=== PATIENT | female | born 1940 | race African-American/Black ===

== ENCOUNTER 2017-01-18 18:44 | Inpatient (IN) ==
[2017-01-18 21:42] LABS: Basophils % 0.3 % (0.0-0.8); Eosinophils % 0.3 % (0.00-10.9); Hematocrit 38.5 VOL% (35.7-47.0); Immature Granulocytes % 0.4 %; Immature Granulocytes Absolute 0.05 #; Lymphocytes # 1.6 10*3/uL (1.4-4.0); Lymphocytes % 13.4 % (21.3-54.2); Mean Corpuscular HGB Conc 31.2 GM/DL (32-36); Mean Corpuscular Hemoglobin 27 PG (27-34); Mean Corpuscular Volume 87.3 FL (87-102); Mean Platelet Volume 10.2 FL (9.6-12.0); Monocytes # 0.8 10*3/uL (0.11-0.8); Monocytes % 6.5 % (1.7-12.7); NRBC # 0.04 10*3/uL; Neutrophils # 9.5 10*3/uL (1.4-7.4); Neutrophils % 79.1 % (38.7-73.9); Platelet Count 390 T/CUMM (130-400); Red Blood Count 4.41 MC/CUMM (3.8-5.5); Red Cell Distribution Width 15.9 % (9.3-17.3)
[2017-01-18 21:54] LABS: Alanine Aminotransferase 15 U/L (13-56); Albumin 2.5 G/DL (3.4-5.0); Alkaline Phosphatase 137 U/L (45-117); Aspartate Amino Transferase 22 U/L (0-37); Bilirubin,Total < 0.39 MG/DL (0.2-1.0); Blood Urea Nitrogen 7 MG/DL (7-18); Calcium 8.1 MG/DL (8.5-10.1); Glucose 50 MG/DL (74-106); Osmolality,Calculated 269.7 MOS/KG (273-304); Potassium 5.2 MMOL/L (3.5-5.1); Sodium 138 MMOL/L (136-145); Total Protein 6.6 G/DL (6.4-8.3)
[2017-01-18 22:07] LABS: Apearance,Urine Slightly Hazy (Clear); Bilirubin,Urine Negative (Negative); Blood, Urine Negative (Negative); Glucose,Urine (UA) Negative (Negative); Granular Casts,Urine 3 /LPF (0-1); Hyaline Casts,Urine 38 /LPF (0-3); Ketones,Urine 5 mg/dL (Negative); Mucus,Urine Occasional /LPF (Occasional); Nitrite,Urine Negative (Negative); Protein,Urine 100 MG/DL; Squamous Epithelial Cell,Urine Occasional /HPF (0-10); Urine Color Yellow (Yellow); Urine Specific Gravity 1.021 (1.001-1.035); Urine Urobilinogen < 2.0 EU/DL (0.2-1.0); WBC,Urine 1 /HPF (0-6)
--- NOTE | 2017-01-18 22:08 | Emergency Department Note ---
Arrival - Arrival Chief Complaint: Weakness Stated Complaint: stroke ED Nursing Triage Note: C/O Right sided weakness/trouble speaking earlier today. Onset unknown. Daughter reports that she saw her last normal lastnight, but noticed the changes today around noon. Pt had a stroke 3 years ago that left her wheelchair bound with left sided weakness. Mode of Arrival: Wheelchair Time Seen by Provider: 01/18/17 21:15 - History of Present Illness HPI Narrative: This is a 76-year-old female of descent with a history of craniotomy for cerebral aneurysm surgery, type 2 diabetes, hypertension, COPD, depression and previous stroke in 2016 leaving her with weakness of her left arm and left leg who presents with slurred speech weakness of the right arm and right leg and an inability to stand on the previously normal right leg of unknown duration. Last time the family saw the patient did well was last evening. Since she is arrived in the emergency department her speech is returned to its baseline and the strength of her right upper extremity has returned to nearly normal. However the weakness of the right leg remains profound. She denies any headache. She has been complaining of a cough for the past few weeks and her family physician gave her diagnosis of bronchitis. Date of Last Menstrual Period: hysterectomy Allergies/Adverse Reactions: Allergies Allergy/AdvReac Type Severity Reaction Status Date / Time codeine Allergy Severe RASH Verified 11/04/15 17:14 morphine Allergy Severe SHORTNESS Verified 11/04/15 17:14 OF BREATH Penicillins Allergy Severe RASH Verified 11/04/15 17:14 metronidazole [From Flagyl] AdvReac Unknown ITCHING Verified 11/04/15 17:14 Home Medications: Home Medications Medication Instructions Recorded Confirmed Type Docusate Sodium Cap [Colace Cap] 100 mg PO BID 11/04/15 05/22/16 History Glyburide/Metformin HCl 2 each PO BID W/MEALS 11/04/15 05/22/16 History [Glyburide-Metformin 5-500 mg] Oxybutynin Chloride [Oxybutynin 5 mg PO DAILY 11/04/15 05/22/16 History Chloride ER] OLANZapine [Olanzapine] 5 mg PO BEDTIME #30 tablet 11/18/15 05/22/16 Rx Venlafaxine HCl [Venlafaxine HCl 150 mg PO BID #60 tab.er.24 11/18/15 05/22/16 Rx ER] Amlodipine Besylate/Benazepril 1 each PO DAILY 05/22/16 05/22/16 History [Lotrel 10-20 mg Capsule] Clorazepate [Tranxene] 3.75 mg PO TID PRN 05/22/16 05/22/16 History HYDROcodone/ACETAMIN 10-325 [[place] 1 tablet PO Q4H PRN 05/22/16 05/22/16 History 10-325] Review of System - Review of System Constitutional: Absent: fever, night sweats Eyes: Absent: redness, vision change Head/Ears/Nose/Throat: Absent: earache, epistaxis Respiratory: Present: cough. Absent: respiratory distress, wheezing Cardiovascular: Absent: dyspnea on exertion, orthopnea Gastrointestinal: Absent: abdominal pain, nausea, diarrhea Genitourinary female: Absent: dysuria, urgency Musculoskeletal: Absent: joint swelling, lower back pain Skin: Absent: rash, pruritus Neurological: Present: abnormal gait. Absent: headache, numbness, confusion Psychiatric: Present: depression. Absent: anxiety Endocrine: Absent: heat intolerance, polydipsia, polyuria Hematological/Lymphatic: Absent: easy bruising, lymphadenopathy Allergic/Immunologic: Absent: urticaria, itchy eyes Medical,Surgical,& Family Hx - Medical History Cardio: History of: Hypertension No history of: Aneurysm, Cardiac Dysrhythmia, Cerebrovascular Disease, Congenital Heart Disease, CHF, CAD, [place], Pacemaker, PVD, Valvular Heart Disease, Cardiovascular Problems Psychological: History of: Anxiety Disorders, Behavior Problems, Depression No history of: ADHD, Bipolar Disorder, Previous Suicide Attempt, Psychiatric/ Substance Abuse Tx, Schizophrenia, Violent Behavior, Psychiatric Problems Neurology: History of: Brain Aneurysm (2009), Cerebrovascular Accident (2014), Peripheral Neuropathy No history of: Cerebral Hemorrhage, Cerebral Palsy, Dementia, Migraine, Multiple Sclerosis, Parkinson's Disease, Seizures, TIA, Vertigo, Neurologocal Cancer HEENT: History of: Dental Problems, Glaucoma No history of: Ear Problem, Eye Problem, Oral Cancer Endocrine: History of: Diabetes Mellitus (IDDM), Diabetes Mellitus (NIDDM) No history of: Adrenal Disease, Dyslipidemia, Thyroid Disorder, Endocrine Cancer, Endocrine Problems Rheumatology: History of;: Rheumatoid Arthritis No history of;: Fibromyalgia, Gout, Myasthenia Gravis, Psoriasis, Sjogrens, Systemic Lupus Erythematosus, Rheumatological Problems Respiratory: No history of: Asthma, Bronchitis, COPD, Intubation, Obstructive Sleep Apnea , Pulmonary Embolism, Pulmonary Hypertension, Pneumonia, Lung Cancer, Respiratory Problems Renal: No history of: Renal (Kidney) Cancer, Dialysis, Renal Failure, Renal Problems Genitourinary: No history of: Bladder Problem, Kidney Stones, Recurring Urinary Tract Infections, Genitourinary Cancer, Problems Gastrointestinal: History of: GERD, Hemorrhoids No history of: Bowel Obstruction, Clostridium Difficile, Crohn's Disease, Diverticulitis/ Diverticulosis, Esophageal Varices, Gastrointestinal Bleed, Hematochezia, Hepatitis, Liver Problems, Pancreatitis, Polyps, Ulcerative Colitis Musculoskeletal: No history of: Amputation, Back/Neck Problems, Degenerative Disk Disease, Herniated Disk, Osteoporosis, Musculoskeletal Cancer, Musculoskeletal Problems Hematology: No history of: Anemia, Blood Transfusion Reaction, Bleeding Problems, Clotting Problems, Sickle Cell Disease, Hematologic Cancer, Blood Disorders Reproductive: No history of: Abnormal Pap Smear, Breast Cancer, Endometriosis, Ectopic , Ovarian Cysts, Sexually Transmitted Disorders Other: No history of: Anesthesia Reactions, Anaphylaxis, Cancer, Eczema, HIV, Malignant Hyperthermia, MRSA, Vancomycin-Resistant Enterococci, Skin Problems, Miscellaneous Medical Problems - Surgical History Cardiac Surgeries: Patient Denies: Femoral-Popliteal Bypass Graft, Cardiac Catheterization, Cardiac Surgery, Carotid Endarterectomy, Internal Defibrillator, Vascular Access Devices Thoracic Surgeries: Patient denies;: Kidney (Renal Surgery), Lithotripsy, Nephrectomy, Organ Transplant, Lobectomy Neurologic Surgeries: Surgical HX of: Brain Aneurysm (2008) Patient denies: Cerebral Hemorrhage, Neurologic Surgery HEENT Surgeries: Patient denies: Carotid Endarterectomy, Eye Surgery, Thyroid Surgery, Tonsilectomy & Adenoidectomy Abdominal Surgeries: Patient denies: Abdominal Surgery, Appendectomy, Cholecystectomy, Colonoscopy , Gastric Bypass Surgery, EGD, Splenectomy Reproductive Surgeries: Surgical HX of;: Hysterectomy (Partial) Patient denies;: Section, Cystoscopy, Genitourinary Surgery Orthopedic Surgeries: Patient denies;: Implanted Devices, Orthopedic Surgery, Spinal Surgery, Total Hip Replacement, Total Knee Replacement - Family History Family History: Denies;: Family Anesthesia Reaction, Family Cancer, Family Diabetes, Family Heart Disease, Family Hypertension, Family Psychiatric Problems, Family Stroke - Social History Smoking Status: Current every day smoker Frequency of Alcohol Use: None Type of Drug Use: None Exam Vital Signs: Vital Signs Temperature 98.6 F 01/18/17 22:10 Pulse Rate 109 H 01/18/17 22:10 Respiratory Rate 18 01/18/17 22:12 Blood Pressure 142/61 01/18/17 22:10 O2 Sat by Pulse Oximetry 98 01/18/17 19:38 - General General appearance: alert - Eye Eye exam: Present: PERRL, EOMI - ENT ENT exam: Present: normal exam, normal oropharynx - Neck Neck exam: Present: normal inspection, full ROM - Respiratory Respiratory exam: Present: rhonchi - Cardiovascular Cardiovascular exam: Present: regular rate, normal rhythm - Abdominal Exam Abdominal exam: Present: soft, normal bowel sounds - Extremities Exam Extremities exam: Present: normal inspection, full ROM - Back Exam Back exam: Present: normal inspection, full ROM - Neurological Exam Neurological exam: Present: alert, oriented X3, CN II-XII intact - Psychiatric Psychiatric exam: Present: normal affect, normal mood - Skin Skin exam: Present: warm, dry Course Course Narrative: According to the family the patient's slurred speech right arm and right leg weakness were present when she was at home and her blood sugar was 300. In the emergency department her blood sugar was 50 and her speech and right arm weakness had already resolved. Her right leg weakness has resolved before she was given intravenous dextrose. It appears that her diagnosis is compatible with a TIA. The case was discussed with who agreed to admit the patient for Dr. Fitzpatrick. Results - Labs CBC & BMP: 01/18/17 21:09 01/18/17 21:09 Disposition Clinical Impression: TIA (transient ischemic attack) Additional Instructions: Patient signs and symptoms are compatible with transient ischemic attack. The case was discussed with Dr. Yoo who agreed to admit the patient on behalf of Dr. Fitzpatrick her attending.
[2017-01-18] MEDS ORDERED: DEXTROSE 50% 25 GM/50 ML VIAL IV STA (22:47)
[2017-01-18] MEDS ORDERED: DEXTROSE 50% 25 GM/50 ML SYRINGE IV ONE (23:09)
[2017-01-19] MEDS ORDERED: ACETAMINOPHEN 325 MG TABLET PO PRN (00:07)
[2017-01-19] MEDS ORDERED: ONDANSETRON 4 MG/2 ML VIAL IV PRN (00:07)
[2017-01-19] MEDS ORDERED: ZINC OXIDE PASTE 113 GM TUBE TOP PRN (02:12)
--- NOTE | 2017-01-19 06:34 | CT Report ---
Exam: CT head without intravenous contrast Clinical History: 76 years Female weakness, right-sided deficit Technique: Axial computed tomography images of the head/brain without intravenous contrast Comparison: May 08, 2016 at 2128 hours Findings: Brain: Atrophy with microangiopathic small vessel ischemic changes and remote infarct involving the right internal capsule. Smart-white matter distinction maintained. No mass effect. No intra or extra-axial hemorrhage. Ventricles: Unremarkable. No ventriculomegaly. Bones/joints: Prior right craniotomy Soft tissues: Unremarkable Vasculature: Right-sided aneurysm clip with streak artifact Sinuses: Ethmoid sinus inflammatory changes with fluid within the right mastoid sinus . Impression: 1. No acute intracranial abnormality 2. Other findings as discussed above PROCEDURE INTERPRETED AT [facility] DEPARTMENT OF RADIOLOGY Final Report Signed by: Corey Smart
--- NOTE | 2017-01-19 07:19 | CT Report ---
Exam: CT chest with intravenous contrast Exam date: 01/18/2017 9:31 PM Clinical History: 76 years,Female, abdominal pain, cough, right leg weakness Technique: Axial computed tomography images of the chest with intravenous contrast. The CT exam was performed using one or more of the following dose reduction techniques: Automated exposure control, adjustment of the mA and/or kV according to patient size, or use of iterative reconstruction technique. Contrast: 100 mL of Omnipaque 350 administered intravenously. Comparison: No relevant comparisons Findings: Lungs: No mass. No consolidation. Pleural spaces: No pneumothorax. No significant effusion Heart: No cardiomegaly. No pericardial effusion Mediastinum: Intact. Normal trachea Bones/joints: Thoracic kyphosis with multilevel spondylosis. Soft tissues: Unremarkable Vasculature: Atheromatous changes Lymph nodes: No pathologic adenopathy Impression: 1. No acute findings 2. Atheromatous changes Exam: CT abdomen and pelvis with intravenous contrast Exam date: 01/18/2017 9:31 PM Clinical History: 76-year-old female, with generalized abdominal pain and right leg weakness, Technique: Axial computed tomography images of the abdomen and pelvis with intravenous contrast. All CT scans at this facility use one or more dose reduction techniques. Automated exposure control, MA/KV adjustment per patient size (including targeted exam Square dose is matched to indication) or iterative reconstruction technique Contrast: 100 mL of Omnipaque 350 administered intravenously Comparison: October 09, 2010 at 1005 hours Findings: Lower thorax: See dedicated chest report Abdomen: Liver: Slight increased hypodensity throughout the liver parenchyma. Scattered subcentimeter densities throughout the right hepatic lobe, benign cyst versus hemangiomas. Gallbladder and bile ducts: Contracted. No ductal dilatation. No stones. Pancreas: Pancreas is normal. Spleen: Spleen is normal. Adrenals: No adrenal mass. Kidneys and ureters: Kidneys are normal in size, morphology and enhancement. No hydronephrosis. No ureteral calculus. Stomach and bowel: Colonic diverticulosis without diverticulitis. No large or small bowel distention. Appendix: Unremarkable. No primary or secondary signs to suggest appendicitis. Pelvis: Bladder: Nascimento catheter decompresses urinary bladder Reproductive: Unremarkable as visualized. Abdomen and pelvis: Intraperitoneal space: No pneumoperitoneum. No significant intraperitoneal fluid Bones/joints: No acute osseous abnormality Soft tissues: No mass Vasculature: No aortic aneurysm. Atheromatous changes Lymph nodes: No adenopathy Impression: 1. Hepatic steatosis 2. Diverticulosis coli PROCEDURE INTERPRETED AT [facility] DEPARTMENT OF RADIOLOGY Final Report Signed by: Corey Smart
[2017-01-19] MEDS ORDERED: DEXTROSE 50% 25 GM/50 ML SYRINGE IV PRN (07:41)
[2017-01-19] MEDS ORDERED: GLUCAGON 1 MG VIAL IM PRN (07:41)
[2017-01-19 08:06] LABS: Basophils % 0.4 % (0.0-0.8); Eosinophils # 0.1 10*3/uL (0.0-0.87); Eosinophils % 0.8 % (0.00-10.9); Hematocrit 37.8 VOL% (35.7-47.0); Hemoglobin 11.9 GM/DL (12.0-16.0); Immature Granulocytes % 0.4 %; Immature Granulocytes Absolute 0.04 #; Lymphocytes # 1.3 10*3/uL (1.4-4.0); Lymphocytes % 14.3 % (21.3-54.2); Mean Corpuscular HGB Conc 31.5 GM/DL (32-36); Mean Corpuscular Hemoglobin 27 PG (27-34); Mean Corpuscular Volume 86.7 FL (87-102); Mean Platelet Volume 9.4 FL (9.6-12.0); Monocytes # 0.6 10*3/uL (0.11-0.8); Monocytes % 6.9 % (1.7-12.7); NRBC # 0.02 10*3/uL; Neutrophils # 6.9 10*3/uL (1.4-7.4); Neutrophils % 77.2 % (38.7-73.9); Platelet Count 461 T/CUMM (130-400); Red Blood Count 4.36 MC/CUMM (3.8-5.5); Red Cell Distribution Width 15.8 % (9.3-17.3); White Blood Count 8.9 T/CUMM (4-12)
[2017-01-19 08:36] LABS: Calcium 8.3 MG/DL (8.5-10.1); Osmolality,Calculated 279.4 MOS/KG (273-304); Potassium 4.2 MMOL/L (3.5-5.1)
--- NOTE | 2017-01-19 08:47 | Family Practice History&Phys ---
Assessment and Plan (1) TIA (transient ischemic attack) Status: Acute Assessment and plan: Vs New CVA, CT head Negative, follow neurology recommendations, Held ASA , h/o black stool, will get PT/OT/swallow eval, 2. HTN stable, not on BP meds currently, since BP not that high, 3. Has h/o black stool H/H stable currently,will get FOBT , follow GI recommendations, , 4. COPD , start duoneb's treatment continue O2 , CT chest was negative, 5. DM, stable, will do only SS insulin , A1c in AM 6.Hyperlipedemia, continue lipitor, 7.depression will continue effexor, Current cigarrete smoker, add Nicotine patch Current Visit: Yes (2) Hypertension Status: Chronic Current Visit: Yes (3) COPD (chronic obstructive pulmonary disease) Status: Chronic Current Visit: Yes (4) Nicotine dependence, cigarettes, uncomplicated Status: Chronic Current Visit: Yes (5) Depression Status: Chronic Current Visit: Yes (6) History of CVA (cerebrovascular accident) Status: Chronic Current Visit: Yes (7) Hyperlipidemia Status: Chronic Current Visit: Yes (8) Type 2 diabetes mellitus Status: Chronic Current Visit: Yes History of Present Illness Chief complaint: weakness of rt side, slurry speech since 2 days History of present illness: Ms. Leos is a 76 year old female PCP :,last visit 2 weeks ago, history obtained from her daughter, ms.dorris leos,present at the bedside. Has h/o HTN/DM/Hyperlipidemia, COPD, depression, h/o Left sided weakness secondary to CVA 2+ yrs ago, pt was brought by the family to Er, for weakness at rt side, slurry speech, could not get up from bed from rt side, noticed yesterday at home, In Er her rt UE, and speech got better,no difficult swallowing?, has h/o chronic headaches, blood glu 315 at home yesterday, but in Er was 50, received D50, pt has not been eating well, appetite decreased since few months, has bloated stomach, black colored stool, last BM 4 days ago,last c-scope > 5 yr ago , but not sure, recently lost her 2 weeks ago, had CVA, in 2014,left sided, is in wheel chair since then, last PT 2 months ago, h/o cerebral aneurysm s/p craniotomy 15 yrs ago, Smokes 1/2 PPD. Home Medications Medication Instructions Recorded Confirmed Type Docusate Sodium Cap [Colace Cap] 100 mg PO BID 11/04/15 01/19/17 History Glyburide/Metformin HCl 2 each PO BID W/MEALS 11/04/15 01/19/17 History [Glyburide-Metformin 5-500 mg] OLANZapine [Olanzapine] 5 mg PO BEDTIME #30 tablet 11/18/15 01/19/17 Rx Venlafaxine HCl [Venlafaxine HCl 150 mg PO BID #60 tab.er.24 11/18/15 01/19/17 Rx ER] Amlodipine Besylate/Benazepril 1 each PO DAILY 05/22/16 01/19/17 History [Lotrel 10-20 mg Capsule] Clorazepate [Tranxene] 3.75 mg PO TID PRN 05/22/16 01/19/17 History HYDROcodone/ACETAMIN 10-325 [[place] 1 tablet PO Q4H PRN 05/22/16 01/19/17 History 10-325] Benzonatate 200 mg PO BID 01/19/17 01/19/17 History clonazePAM [Clonazepam] 1 mg PO BEDTIME 01/19/17 01/19/17 History Allergies Allergy/AdvReac Type Severity Reaction Status Date / Time codeine Allergy Severe RASH Verified 11/04/15 17:14 morphine Allergy Severe SHORTNESS Verified 11/04/15 17:14 OF BREATH Penicillins Allergy Severe RASH Verified 11/04/15 17:14 metronidazole [From Flagyl] AdvReac Unknown ITCHING Verified 11/04/15 17:14 - Constitutional Constitutional: Present: as per HPI - EENT Eyes: Present: as per HPI Nose, mouth and throat: Present: as per HPI - Cardiovascular Cardiovascular: Present: as per HPI - Respiratory Respiratory: Present: as per HPI - Gastrointestinal Gastrointestinal: Present: as per HPI - Genitourinary Genitourinary: Present: as per HPI - Musculoskeletal Musculoskeletal: Present: as per HPI - Neurological Neurological: Present: as per HPI - Psychiatric Psychiatric: Present: as per HPI - Endocrine Endocrine: Present: as per HPI - Hematologic/Lymphatic Hematologic/Lymphatic: Present: as per HPI Medical,Surgical,& Family Hx - Medical History Cardio: History of: Hypertension No history of: Aneurysm, Cardiac Dysrhythmia, Cerebrovascular Disease, Congenital Heart Disease, CHF, CAD, [place], Pacemaker, PVD, Valvular Heart Disease, Cardiovascular Problems Psychological: History of: Anxiety Disorders, Behavior Problems, Depression No history of: ADHD, Bipolar Disorder, Previous Suicide Attempt, Psychiatric/ Substance Abuse Tx, Schizophrenia, Violent Behavior, Psychiatric Problems Neurology: History of: Brain Aneurysm (2009), Cerebrovascular Accident (2015), Peripheral Neuropathy, TIA No history of: Cerebral Hemorrhage, Cerebral Palsy, Dementia, Migraine, Multiple Sclerosis, Parkinson's Disease, Seizures, Vertigo, Neurologocal Cancer HEENT: History of: Dental Problems, Glaucoma No history of: Ear Problem, Eye Problem, Oral Cancer Endocrine: History of: Diabetes Mellitus (IDDM), Diabetes Mellitus (NIDDM) No history of: Adrenal Disease, Dyslipidemia, Thyroid Disorder, Endocrine Cancer, Endocrine Problems Rheumatology: History of;: Rheumatoid Arthritis No history of;: Fibromyalgia, Gout, Myasthenia Gravis, Psoriasis, Sjogrens, Systemic Lupus Erythematosus, Rheumatological Problems Respiratory: History of: COPD, Respiratory Problems (possible VAL[place]IA) No history of: Asthma, Bronchitis, Intubation, Obstructive Sleep Apnea, Pulmonary Embolism, Pulmonary Hypertension, Pneumonia, Lung Cancer Renal: No history of: Renal (Kidney) Cancer, Dialysis, Renal Failure, Renal Problems Genitourinary: No history of: Bladder Problem, Kidney Stones, Recurring Urinary Tract Infections, Genitourinary Cancer, Problems Gastrointestinal: History of: GERD, Hemorrhoids No history of: Bowel Obstruction, Clostridium Difficile, Crohn's Disease, Diverticulitis/ Diverticulosis, Esophageal Varices, Gastrointestinal Bleed, Hematochezia, Hepatitis, Liver Problems, Pancreatitis, Polyps, Ulcerative Colitis Musculoskeletal: No history of: Amputation, Back/Neck Problems, Degenerative Disk Disease, Herniated Disk, Osteoporosis, Musculoskeletal Cancer, Musculoskeletal Problems Hematology: No history of: Anemia, Blood Transfusion Reaction, Bleeding Problems, Clotting Problems, Sickle Cell Disease, Hematologic Cancer, Blood Disorders Reproductive: No history of: Abnormal Pap Smear, Breast Cancer, Endometriosis, Ectopic , Ovarian Cysts, Sexually Transmitted Disorders Other: No history of: Anesthesia Reactions, Anaphylaxis, Cancer, Eczema, HIV, Malignant Hyperthermia, MRSA, Vancomycin-Resistant Enterococci, Skin Problems, Miscellaneous Medical Problems - Surgical History Cardiac Surgeries: Patient Denies: Femoral-Popliteal Bypass Graft, Cardiac Catheterization, Cardiac Surgery, Carotid Endarterectomy, Internal Defibrillator, Vascular Access Devices Thoracic Surgeries: Patient denies;: Kidney (Renal Surgery), Lithotripsy, Nephrectomy, Organ Transplant, Lobectomy Neurologic Surgeries: Surgical HX of: Brain Aneurysm (2009) Patient denies: Cerebral Hemorrhage, Neurologic Surgery HEENT Surgeries: Patient denies: Carotid Endarterectomy, Eye Surgery, Thyroid Surgery, Tonsilectomy & Adenoidectomy Abdominal Surgeries: Patient denies: Abdominal Surgery, Appendectomy, Cholecystectomy, Colonoscopy , Gastric Bypass Surgery, EGD, Splenectomy Reproductive Surgeries: Surgical HX of;: Hysterectomy (Partial) Patient denies;: Section, Cystoscopy, Genitourinary Surgery Orthopedic Surgeries: Patient denies;: Implanted Devices, Orthopedic Surgery, Spinal Surgery, Total Hip Replacement, Total Knee Replacement - Family History Family History: Denies;: Family Anesthesia Reaction, Family Cancer, Family Diabetes, Family Heart Disease, Family Hypertension, Family Psychiatric Problems, Family Stroke - Social History Smoking Status: Current every day smoker Frequency of Alcohol Use: None Type of Drug Use: None Exam - Constitutional Vitals: Period Temp Pulse Resp BP Sys/Clemente Pulse Ox Last 24 Hr 98.6 F-99.5 F 91-109 16-20 132-171/61-80 96-100 Exam: General Examination: Examined pt after waking her up, GENERAL APPEARANCE: alert and oriented X 2, lying in bed, obese female pt , has nasal canula 2lit, is coughing HEENT: normal. EYES: extraocular movement intact (EOMI), conjunctiva clear, normal. NECK/THYROID: neck supple, full range of motion, no cervical lymphadenopathy, no thyromegaly. HEART: regular rate and rhythm, no murmurs, rubs, gallops. LUNGS: mild wheezes Bl with ronchi. ABDOMEN: soft, nontender, mildly distended, no organomegaly , bowel sounds present. NEUROLOGIC: alert and oriented X 2, mildly slurred speech, ? angle of mouth deviated to left, Strength 5/5 Rt UE, 4-/5 Rt LE, 0-1/5 Left UE/LE Results - Labs CBC & BMP: 01/19/17 07:47 01/19/17 07:47 Quality Measures - VTE Contraindication to Pharmacological VTE Prophylaxis: High Risk of Bleeding - Stroke Onset of Symptoms Date: 01/19/17 Onset of Symptoms Time: 12:00 Presenting Symptoms: Right hemiparesis
[2017-01-19] MEDS: NICOTINE 21 MG/24 HR PATCH TRANSDERM SCH (10:08)
[2017-01-19] MEDS: DOCUSATE SODIUM 100 MG CAPSULE PO SCH ×2 (10:09→20:58)
[2017-01-19] MEDS: PANTOPRAZOLE 40 MG TABLET PO SCH (10:09)
--- NOTE | 2017-01-19 10:49 | Gastrointestinal Consult Note ---
Assessment and Plan (1) Melena Status: Acute Assessment and plan: 01/19-reports of melena over the last several weeks with constipation. Reports of daily BC powders as well as epigastric discomfort and worsening GERD. Prior history of endoscopy in the past. Obtain and otoscopic records from endoscopic clinic if available. Note that colonoscopy was recently scheduled but canceled. Tentative EGD tomorrow to further evaluate findings. Further plan an addendum to followed by Dr. Carey. Current Visit: Yes History of Present Illness Chief complaint: Melena History of present illness: Ms. Wilks is a 76 year old female who was admitted to the hospital on yesterday with complaints of weakness in her arms and legs and slurred speech. Patient's daughters at bedside and assists in history taking. 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 On yesterday, she developed weakness on her right arm and leg as well as some slurred speech. Her daughter became concerned and brought her to the emergency room for further evaluation. They also report that over the last several days they noticed that her stools have been darker in color than usual. Patient also has some complaints of increased GERD as well as some mild dysphagia to solids. She does state that at times when she eats she has some epigastric discomfort. Her spouse 2 weeks ago from colon cancer and her daughter states that she has not eaten very well over the last several months. Patient feels like she has had some weight loss but she is uncertain as to how much. Patient was also scheduled for colonoscopy in the last couple of weeks however this had to be canceled due to her spouse's . Patient has had some increased difficulty with constipation over the last several months that patient's daughter feels was also associated with her decreased eating habits. She has had endoscopy done in the past but does not recall any abnormal findings. Her prior endoscopy was done by Dr. Reinoso and [facility]. On admission, patient had a CT of the abdomen with findings of hepatic steatosis and diverticulosis. H&H is noted . Patient does report taking approximately 3 BCs a day for a period of time. She is not on long-term anticoagulation. Home Medications Medication Instructions Recorded Confirmed Type Docusate Sodium Cap [Colace Cap] 100 mg PO BID 11/04/15 01/19/17 History Glyburide/Metformin HCl 2 each PO BID W/MEALS 11/04/15 01/19/17 History [Glyburide-Metformin 5-500 mg] OLANZapine [Olanzapine] 5 mg PO BEDTIME #30 tablet 11/18/15 01/19/17 Rx Venlafaxine HCl [Venlafaxine HCl 150 mg PO BID #60 tab.er.24 11/18/15 01/19/17 Rx ER] Amlodipine Besylate/Benazepril 1 each PO DAILY 05/22/16 01/19/17 History [Lotrel 10-20 mg Capsule] Clorazepate [Tranxene] 3.75 mg PO TID PRN 05/22/16 01/19/17 History HYDROcodone/ACETAMIN 10-325 [[place] 1 tablet PO Q4H PRN 05/22/16 01/19/17 History 10-325] Benzonatate 200 mg PO BID 01/19/17 01/19/17 History clonazePAM [Clonazepam] 1 mg PO BEDTIME 01/19/17 01/19/17 History Allergies Allergy/AdvReac Type Severity Reaction Status Date / Time codeine Allergy Severe RASH Verified 11/04/15 17:14 morphine Allergy Severe SHORTNESS Verified 11/04/15 17:14 OF BREATH Penicillins Allergy Severe RASH Verified 11/04/15 17:14 metronidazole [From Flagyl] AdvReac Unknown ITCHING Verified 11/04/15 17:14 Medical,Surgical,& Family Hx - Medical History Cardio: History of: Hypertension No history of: Aneurysm, Cardiac Dysrhythmia, Cerebrovascular Disease, Congenital Heart Disease, CHF, CAD, [place], Pacemaker, PVD, Valvular Heart Disease, Cardiovascular Problems Psychological: History of: Anxiety Disorders, Behavior Problems, Depression No history of: ADHD, Bipolar Disorder, Previous Suicide Attempt, Psychiatric/ Substance Abuse Tx, Schizophrenia, Violent Behavior, Psychiatric Problems Neurology: History of: Brain Aneurysm (2008), Cerebrovascular Accident (2014), Peripheral Neuropathy, TIA No history of: Cerebral Hemorrhage, Cerebral Palsy, Dementia, Migraine, Multiple Sclerosis, Parkinson's Disease, Seizures, Vertigo, Neurologocal Cancer HEENT: History of: Dental Problems, Glaucoma No history of: Ear Problem, Eye Problem, Oral Cancer Endocrine: History of: Diabetes Mellitus (IDDM), Diabetes Mellitus (NIDDM) No history of: Adrenal Disease, Dyslipidemia, Thyroid Disorder, Endocrine Cancer, Endocrine Problems Rheumatology: History of;: Rheumatoid Arthritis No history of;: Fibromyalgia, Gout, Myasthenia Gravis, Psoriasis, Sjogrens, Systemic Lupus Erythematosus, Rheumatological Problems Respiratory: History of: COPD, Respiratory Problems (possible VALENCIA) No history of: Asthma, Bronchitis, Intubation, Obstructive Sleep Apnea, Pulmonary Embolism, Pulmonary Hypertension, Pneumonia, Lung Cancer Renal: No history of: Renal (Kidney) Cancer, Dialysis, Renal Failure, Renal Problems Genitourinary: No history of: Bladder Problem, Kidney Stones, Recurring Urinary Tract Infections, Genitourinary Cancer, Problems Gastrointestinal: History of: GERD, Hemorrhoids No history of: Bowel Obstruction, Clostridium Difficile, Crohn's Disease, Diverticulitis/ Diverticulosis, Esophageal Varices, Gastrointestinal Bleed, Hematochezia, Hepatitis, Liver Problems, Pancreatitis, Polyps, Ulcerative Colitis Musculoskeletal: No history of: Amputation, Back/Neck Problems, Degenerative Disk Disease, Herniated Disk, Osteoporosis, Musculoskeletal Cancer, Musculoskeletal Problems Hematology: No history of: Anemia, Blood Transfusion Reaction, Bleeding Problems, Clotting Problems, Sickle Cell Disease, Hematologic Cancer, Blood Disorders Reproductive: No history of: Abnormal Pap Smear, Breast Cancer, Endometriosis, Ectopic , Ovarian Cysts, Sexually Transmitted Disorders Other: No history of: Anesthesia Reactions, Anaphylaxis, Cancer, Eczema, HIV, Malignant Hyperthermia, MRSA, Vancomycin-Resistant Enterococci, Skin Problems, Miscellaneous Medical Problems - Surgical History Cardiac Surgeries: Patient Denies: Femoral-Popliteal Bypass Graft, Cardiac Catheterization, Cardiac Surgery, Carotid Endarterectomy, Internal Defibrillator, Vascular Access Devices Thoracic Surgeries: Patient denies;: Kidney (Renal Surgery), Lithotripsy, Nephrectomy, Organ Transplant, Lobectomy Neurologic Surgeries: Surgical HX of: Brain Aneurysm (2008) Patient denies: Cerebral Hemorrhage, Neurologic Surgery HEENT Surgeries: Patient denies: Carotid Endarterectomy, Eye Surgery, Thyroid Surgery, Tonsilectomy & Adenoidectomy Abdominal Surgeries: Patient denies: Abdominal Surgery, Appendectomy, Cholecystectomy, Colonoscopy , Gastric Bypass Surgery, EGD, Splenectomy Reproductive Surgeries: Surgical HX of;: Hysterectomy (Partial) Patient denies;: Section, Cystoscopy, Genitourinary Surgery Orthopedic Surgeries: Patient denies;: Implanted Devices, Orthopedic Surgery, Spinal Surgery, Total Hip Replacement, Total Knee Replacement - Family History Family History: Denies;: Family Anesthesia Reaction, Family Cancer, Family Diabetes, Family Heart Disease, Family Hypertension, Family Psychiatric Problems, Family Stroke - Social History Smoking Status: Current every day smoker Frequency of Alcohol Use: None Type of Drug Use: None 12 point system: reviewed and no additional remarkable complaints except as stated - Constitutional Constitutional: Present: as per HPI - EENT Eyes: Present: as per HPI Ears: Present: as per HPI Nose, mouth and throat: Present: as per HPI - Cardiovascular Cardiovascular: Present: as per HPI - Respiratory Respiratory: Present: as per HPI - Gastrointestinal Gastrointestinal: Present: as per HPI, abdominal pain (Epigastric pain), constipation, melena - Genitourinary Genitourinary: Present: as per HPI - Musculoskeletal Musculoskeletal: Present: as per HPI - Neurological Neurological: Present: as per HPI - Psychiatric Psychiatric: Present: as per HPI - Endocrine Endocrine: Present: as per HPI - Hematologic/Lymphatic Hematologic/Lymphatic: Present: as per HPI Exam - Constitutional Vitals: Period Temp Pulse Resp BP Sys/Clemente Pulse Ox Last 24 Hr 98.6 F-99.5 F 91-109 16-20 132-171/61-80 96-100 General appearance: normal weight, no acute distress - Head Head exam: Present: normal inspection, normocephalic - Eye Eye exam: Present: other (Lids and conjunctivae are unremarkable). Absent: scleral icterus - ENT ENT exam: Present: normal exam, normal oropharynx - Neck Neck exam: Present: normal inspection - Respiratory Respiratory exam: Present: clear to auscultation bilaterally. Absent: rales, rhonchi, wheezes - Cardiovascular Cardiovascular exam: Present: regular rate and rhythm. Absent: diastolic murmur , JVD, systolic murmur - GI/Abdominal GI/Abdominal exam: Present: normal bowel sounds, soft. Absent: ascites, distended, mass, organomegaly, tenderness - Extremities Exam Extremities exam: Present: normal inspection, full ROM - Back Exam Back exam: Present: normal inspection - Neurological Exam Neurological exam: Present: alert, oriented X3 - Psychiatric Psychiatric exam: Present: normal affect, normal mood - Skin Skin exam: Present: normal color, warm, dry Results - Labs CBC & BMP: 01/19/17 07:47 01/19/17 07:47 Lab Results: I have reviewed the past 24 hour labs - Diagnostic Findings Procedure: CT Abdomen and Pelvis: report reviewed by me Quality Measures - VTE Contraindication to Pharmacological VTE Prophylaxis: High Risk of Bleeding - Stroke Onset of Symptoms Date: 01/19/17 Onset of Symptoms Time: 12:00 Presenting Symptoms: Right hemiparesis
[2017-01-19] MEDS: ALBUTEROL/IPRATROPIUM 3 ML NEB RESP TX SCH ×3 (10:59→19:10)
[2017-01-19] MEDS: VENLAFAXINE XR 75 MG CAPSULE PO SCH (12:56)
[2017-01-19] MEDS ORDERED: ALUMINUM/MAGNES/SIMETH MAX STR 30 ML UDCUP PO PRN (13:34)
--- NOTE | 2017-01-19 16:06 | Neurology Consult Note ---
History of Present Illness History of present illness: 76 years old -[place] lady with past medical history significant for hypertension, diabetes, hyperlipidemia, COPD, depression, history of a stroke in 2016 with residual left-sided hemiparesis was brought in by the family to the ER for weakness of the right side and started speech. Patient could not get up from bed from the right side. Family noted that yesterday at home. By the time she got to the ER symptoms resolved completely. She also has some history of chronic headaches. She takes a good bit of BC powders to control different kind of pains she also had a history of questionable GI bleed and she is off of all blood thinner. Recently her spouse and her colonoscopy got canceled. She also had a history of cerebral aneurysm status post craniotomy 15 years ago. She continued to smoke half pack per day. GI has been consulted. CT scan of the head reveals no acute abnormalities. Home Medications Medication Instructions Recorded Confirmed Type Docusate Sodium Cap [Colace Cap] 100 mg PO BID 11/04/15 01/19/17 History Glyburide/Metformin HCl 2 each PO BID W/MEALS 11/04/15 01/19/17 History [Glyburide-Metformin 5-500 mg] OLANZapine [Olanzapine] 5 mg PO BEDTIME #30 tablet 11/18/15 01/19/17 Rx Venlafaxine HCl [Venlafaxine HCl 150 mg PO BID #60 tab.er.24 11/18/15 01/19/17 Rx ER] Amlodipine Besylate/Benazepril 1 each PO DAILY 05/22/16 01/19/17 History [Lotrel 10-20 mg Capsule] Clorazepate [Tranxene] 3.75 mg PO TID PRN 05/22/16 01/19/17 History HYDROcodone/ACETAMIN 10-325 [[place] 1 tablet PO Q4H PRN 05/22/16 01/19/17 History 10-325] Benzonatate 200 mg PO BID 01/19/17 01/19/17 History clonazePAM [Clonazepam] 1 mg PO BEDTIME 01/19/17 01/19/17 History Allergies Allergy/AdvReac Type Severity Reaction Status Date / Time codeine Allergy Severe RASH Verified 11/04/15 17:14 morphine Allergy Severe SHORTNESS Verified 11/04/15 17:14 OF BREATH Penicillins Allergy Severe RASH Verified 11/04/15 17:14 metronidazole [From Flagyl] AdvReac Unknown ITCHING Verified 11/04/15 17:14 12 point system: reviewed and no additional remarkable complaints except as stated Medical,Surgical,& Family Hx - Medical History Cardio: History of: Hypertension No history of: Aneurysm, Cardiac Dysrhythmia, Cerebrovascular Disease, Congenital Heart Disease, CHF, CAD, [place], Pacemaker, PVD, Valvular Heart Disease, Cardiovascular Problems Psychological: History of: Anxiety Disorders, Behavior Problems, Depression No history of: ADHD, Bipolar Disorder, Previous Suicide Attempt, Psychiatric/ Substance Abuse Tx, Schizophrenia, Violent Behavior, Psychiatric Problems Neurology: History of: Brain Aneurysm (2008), Cerebrovascular Accident (2014), Peripheral Neuropathy, TIA No history of: Cerebral Hemorrhage, Cerebral Palsy, Dementia, Migraine, Multiple Sclerosis, Parkinson's Disease, Seizures, Vertigo, Neurologocal Cancer HEENT: History of: Dental Problems, Glaucoma No history of: Ear Problem, Eye Problem, Oral Cancer Endocrine: History of: Diabetes Mellitus (IDDM), Diabetes Mellitus (NIDDM) No history of: Adrenal Disease, Dyslipidemia, Thyroid Disorder, Endocrine Cancer, Endocrine Problems Rheumatology: History of;: Rheumatoid Arthritis No history of;: Fibromyalgia, Gout, Myasthenia Gravis, Psoriasis, Sjogrens, Systemic Lupus Erythematosus, Rheumatological Problems Respiratory: History of: COPD, Respiratory Problems (possible VALENCIA) No history of: Asthma, Bronchitis, Intubation, Obstructive Sleep Apnea, Pulmonary Embolism, Pulmonary Hypertension, Pneumonia, Lung Cancer Renal: No history of: Renal (Kidney) Cancer, Dialysis, Renal Failure, Renal Problems Genitourinary: No history of: Bladder Problem, Kidney Stones, Recurring Urinary Tract Infections, Genitourinary Cancer, Problems Gastrointestinal: History of: GERD, Hemorrhoids No history of: Bowel Obstruction, Clostridium Difficile, Crohn's Disease, Diverticulitis/ Diverticulosis, Esophageal Varices, Gastrointestinal Bleed, Hematochezia, Hepatitis, Liver Problems, Pancreatitis, Polyps, Ulcerative Colitis Musculoskeletal: No history of: Amputation, Back/Neck Problems, Degenerative Disk Disease, Herniated Disk, Osteoporosis, Musculoskeletal Cancer, Musculoskeletal Problems Hematology: No history of: Anemia, Blood Transfusion Reaction, Bleeding Problems, Clotting Problems, Sickle Cell Disease, Hematologic Cancer, Blood Disorders Reproductive: No history of: Abnormal Pap Smear, Breast Cancer, Endometriosis, Ectopic , Ovarian Cysts, Sexually Transmitted Disorders Other: No history of: Anesthesia Reactions, Anaphylaxis, Cancer, Eczema, HIV, Malignant Hyperthermia, MRSA, Vancomycin-Resistant Enterococci, Skin Problems, Miscellaneous Medical Problems - Surgical History Cardiac Surgeries: Patient Denies: Femoral-Popliteal Bypass Graft, Cardiac Catheterization, Cardiac Surgery, Carotid Endarterectomy, Internal Defibrillator, Vascular Access Devices Thoracic Surgeries: Patient denies;: Kidney (Renal Surgery), Lithotripsy, Nephrectomy, Organ Transplant, Lobectomy Neurologic Surgeries: Surgical HX of: Brain Aneurysm (2009) Patient denies: Cerebral Hemorrhage, Neurologic Surgery HEENT Surgeries: Patient denies: Carotid Endarterectomy, Eye Surgery, Thyroid Surgery, Tonsilectomy & Adenoidectomy Abdominal Surgeries: Patient denies: Abdominal Surgery, Appendectomy, Cholecystectomy, Colonoscopy , Gastric Bypass Surgery, EGD, Splenectomy Reproductive Surgeries: Surgical HX of;: Hysterectomy (Partial) Patient denies;: Section, Cystoscopy, Genitourinary Surgery Orthopedic Surgeries: Patient denies;: Implanted Devices, Orthopedic Surgery, Spinal Surgery, Total Hip Replacement, Total Knee Replacement - Family History Family History: Denies;: Family Anesthesia Reaction, Family Cancer, Family Diabetes, Family Heart Disease, Family Hypertension, Family Psychiatric Problems, Family Stroke - Social History Smoking Status: Current every day smoker Frequency of Alcohol Use: None Type of Drug Use: None Exam - Constitutional Vitals: Period Temp Pulse Resp BP Sys/Clemente Pulse Ox Last 24 Hr 98.6 F-99.5 F 89-109 16-20 132-171/61-80 93-100 Exam: GENERAL: Patient is in no acute distress. NECK: Neck is supple. There is no JVD. No carotid bruits present. No thyroid masses. CVS: First and second heart sounds are normal. There is no S3 present. Regular rate and rhythm. RESPIRATORY: Lungs are clear to auscultation without any rales or rhonchi. ABDOMEN: Soft and non-tender. Bowel sounds are present. There is no hepatosplenomegaly. EXT: There is no palpable edema. Peripheral pulses are present. Skin: No rashes Central Nervous system: General: Alert, awake and Oriented x 3 Speech: Fluent Comprehension: Intact and normal Facial expressions: Normal Cranial Nerves: CN1/Olfactory: Normal CN II/ Optic: Normal, Visual Diez unreliable CN III, and : GAMALIEL & EOMI CN V: Normal & intact CN VII: face is symmetric CNVIII: Normal CN XI/X/XI/XII: Intact and Normal Motor: Bulk and Tone is normal. Strength in the right 5/5 Strength in the left 0/5 Sensory: Decreased for all the modalities of PP, LT and temp sense in the glove and stocking distribution Reflexes: 1+ and symmetrical Cerebellar function: Normal finger to nose testing in the right and could not do it in the left. Toes: Equivocal Gait: Not tested Results - Labs CBC & BMP: 01/19/17 07:47 01/19/17 07:47 Assessment and Plan (1) TIA (transient ischemic attack) Status: Acute Assessment and plan: History and exam is suggestive of transient ischemic attack. Symptoms had resolved completely. Patient is not on any anticoagulants. I believe her H&H is stable enough to put on some sort of antiplatelet agents however I would wait since she has been scheduled for EGD in the morning. We will put her on antiplatelet agents as soon as we have clearance from GI standpoint. No need for MR Off note her CRP is 14.8 Check carotid ultrasound and echo, lipid panel FABIO Thank you for the consult Current Visit: Yes
[2017-01-19] MEDS: INSULIN LISPRO 100 UNIT/ML SUBCUT SCH ×3 (16:10→21:05)
[2017-01-19 17:15] LABS: Risk Ratio 5.73; VLDL CHOLESTEROL 44.6 MG/DL
--- NOTE | 2017-01-19 19:40 | Ultrasound Report ---
Exam:US carotid duplex BI Date:01/19/2017 4:09 PM Indication: Slurred speech. Previous CVA with left-sided weakness Color Doppler, wave form analysis, and grayscale analysis of the cervical carotid arteries was performed. There is mild partially calcified plaque in either carotid bulb. Waveform analysis shows proper directional flow of the cervical carotid arteries. There is antegrade flow in either vertebral artery. There is increased peak systolic velocity in the left internal carotid artery compatible with 50-79% diameter reduction narrowing. However, color Doppler images do not demonstrate high-grade stenosis. There is 16-49% diameter reduction narrowing of the right internal carotid artery. Impression: There is 50-79% diameter reduction narrowing of the left internal carotid artery and 16-49% diameter reduction narrowing of the right internal carotid artery using indirect NASCET criteria. Right Side Flow velocities centimeters per second Common carotid artery: 69 Proximal ICA: 65 Distal ICA: 106 External carotid artery: 86 Vertebral artery: 87 ICA/CCA ratio: 1.5 Measurements in millimeters Distal ICA: 5.0 Left SIde Flow velocities centimeters per second Common carotid artery 102 Proximal ICA: 85 Distal ICA: 210 External carotid artery: 89 Vertebral artery: 91 ICA/CCA ratio: 2.1 Measurements in millimeters Distal ICA: 4.9 Today studies were performed utilizing indirect NASCET criteria PROCEDURE INTERPRETED AT [facility] DEPARTMENT OF RADIOLOGY Final Report Signed by: Dr. Iris Carey
[2017-01-19] MEDS: ATORVASTATIN 40 MG TABLET PO SCH (20:58)
[2017-01-20] MEDS: ALBUTEROL/IPRATROPIUM 3 ML NEB RESP TX SCH ×4 (00:12→19:27)
[2017-01-20 07:39] LABS: Basophils % 0.4 % (0.0-0.8); Eosinophils # 0.1 10*3/uL (0.0-0.87); Hematocrit 38.7 VOL% (35.7-47.0); Hemoglobin 12.1 GM/DL (12.0-16.0); Immature Granulocytes % 0.4 %; Immature Granulocytes Absolute 0.03 #; Lymphocytes # 1.3 10*3/uL (1.4-4.0); Lymphocytes % 17.9 % (21.3-54.2); Mean Corpuscular HGB Conc 31.3 GM/DL (32-36); Mean Corpuscular Hemoglobin 27 PG (27-34); Mean Corpuscular Volume 86.6 FL (87-102); Monocytes # 0.5 10*3/uL (0.11-0.8); Monocytes % 6.7 % (1.7-12.7); Neutrophils # 5.2 10*3/uL (1.4-7.4); Neutrophils % 72.6 % (38.7-73.9); Platelet Count 398 T/CUMM (130-400); Red Blood Count 4.47 MC/CUMM (3.8-5.5); Red Cell Distribution Width 15.6 % (9.3-17.3); White Blood Count 7.2 T/CUMM (4-12)
[2017-01-20 08:05] LABS: Calcium 8.5 MG/DL (8.5-10.1); Osmolality,Calculated 280.4 MOS/KG (273-304); Potassium 3.9 MMOL/L (3.5-5.1)
--- NOTE | 2017-01-20 08:58 | Family Practice Progress Note ---
Family Practice - PN: Subj Interval history: PCP :, Consultants on case: Neurologist,GI Patient seen and examined on the telemetry floor, Admitted for TIA, weakness improving, has history of dysphagia, dark stools, getting EGD this a.m. Has h/o HTN/DM/Hyperlipidemia, COPD, depression, h/o Left sided weakness secondary to CVA 2+ yrs ago, history of cerebral aneurysm status post craniotomy 15 years ago. The daughter at the bedside mentions patient's speech and right-sided strength is improved since admission, is currently nothing by mouth for EGD this a.m. No fever, nausea, vomiting, chest pain, shortness of breath noted. On inhalers/ oxygen for COPD, Mentions about the patient is not getting good night sleep, Exam (Progress Note) - Constitutional Vitals: Period Temp Pulse Resp BP Sys/Clemente Pulse Ox Last 24 Hr 97.2 F-98.8 F 84-97 16-20 143-164/69-92 93-98 Exam: General Examination: GENERAL APPEARANCE: alert and oriented X 2, lying in bed, obese female pt , has nasal canula 2lit, overall looking better than yesterday HEENT: normal. EYES: extraocular movement intact (EOMI), conjunctiva clear, normal. NECK/THYROID: neck supple, full range of motion, no cervical lymphadenopathy, no thyromegaly. HEART: regular rate and rhythm, no murmurs, rubs, gallops. LUNGS: Clear to auscultation bilaterally. ABDOMEN: soft, nontender, mildly distended, no organomegaly , bowel sounds present. NEUROLOGIC: alert and oriented X 2, speech mildly slurred? angle of mouth deviated to left(possibly from old CVA), Strength 5/5 Rt UE, 4-/5 Rt LE, 0-1/5 Left UE/LE Results - Labs CBC & BMP: 01/20/17 07:33 01/20/17 07:33 Lab Results: I have reviewed the past 24 hour labs Labs: A1c 7.3 Blood culture, urine culture no growth so far from 01/18/2017 Assessment and Plan (1) TIA (transient ischemic attack) Status: Acute Assessment and plan: , CT head Negative, follow neurology recommendations, will get PT/OT/swallow eval, 2. HTN stable, not on BP meds currently, since BP not that high, 3. History of dysphagia, EGD today, Has h/o black stool H/H stable currently, will get FOBT , follow GI recommendations, , 4. COPD , on duoneb's treatment continue O2 , 5. DM, stable, will do only SS insulin , 6.Hyperlipedemia, continue lipitor, 7.depression will continue effexor, Current cigarrete smoker, add Nicotine patch Current Visit: Yes (2) Hypertension Status: Chronic Current Visit: Yes (3) COPD (chronic obstructive pulmonary disease) Status: Chronic Current Visit: Yes (4) Nicotine dependence, cigarettes, uncomplicated Status: Chronic Current Visit: Yes (5) Depression Status: Chronic Current Visit: Yes (6) History of CVA (cerebrovascular accident) Status: Chronic Current Visit: Yes (7) Hyperlipidemia Status: Chronic Current Visit: Yes (8) Type 2 diabetes mellitus Status: Chronic Current Visit: Yes Quality Measures - VTE Contraindication to Pharmacological VTE Prophylaxis: High Risk of Bleeding - Stroke Onset of Symptoms Date: 01/19/17 Onset of Symptoms Time: 12:00 Presenting Symptoms: Right hemiparesis
[2017-01-20] MEDS: NICOTINE 21 MG/24 HR PATCH TRANSDERM SCH (10:57)
[2017-01-20] MEDS: INSULIN LISPRO 100 UNIT/ML SUBCUT SCH ×4 (10:59→22:35)
[2017-01-20] MEDS: PANTOPRAZOLE 40 MG TABLET PO SCH ×2 (10:59→16:26)
[2017-01-20] MEDS: VENLAFAXINE XR 75 MG CAPSULE PO SCH ×2 (10:59→16:22)
[2017-01-20] MEDS: DOCUSATE SODIUM 100 MG CAPSULE PO SCH ×2 (10:59→22:35)
[2017-01-20] MEDS ORDERED: LIDOCAINE 2% 5 ML VIAL ONE (13:25)
[2017-01-20] MEDS ORDERED: PROPOFOL 200 MG/20 ML VIAL IV ONE (13:25)
--- NOTE | 2017-01-20 13:33 | History and Physical Update ---
History and Physical Update - Physical Exam Mental Status: alert and oriented Heart: regular rate and rhythm Lung: clear to auscultation Abdomen: within normal limits Vitals: within normal limits History and Physical Changes: 76-year-old female has had recent dysphagia to solids and liquids she says. She also has noted some dark stools.
--- NOTE | 2017-01-20 13:37 | Operative Note ---
Date of procedure: 01/20/17 Pre-op diagnosis: Dysphagia Procedure: Procedure: Esophagogastroduodenoscopy with bougie dilation of esophagus Brief clinical abstract: 76-year-old female has had recent dysphagia to both solids and liquids. She also states she has had some dark stools. Hemoglobin has been stable in the 12 range. Stool has not been obtained for occult blood as yet. Indication for procedure: Dysphagia Endoscopic findings:[After informed consent was obtained, the patient was placed in the left lateral decubitus position. The gastroscope was inserted in the upper esophagus under direct vision with no resistance encountered. Esophageal mucosa appeared normal down to just above the squamocolumnar junction. There was a mildly obstructive fibrous appearing stricture at that level consistent with reflux etiology. No erosions or ulcerations were seen. A small hiatal hernia was present just distal to this. The endoscope was advanced in the stomach which was carefully examined including retroflexed view of the cardia and fundus with no other abnormalities noted. The pyloric channel , duodenal bulb, second and third portion of the duodenum appeared normal. The endoscope was withdrawn and Leonard dilator size 52 Estonian inserted in the upper esophagus and advanced beyond the level of the GE junction with mild resistance encountered. No blood was noted on the Dollar at present she had no chest pain. She appeared to tolerate the procedure well. Impression: #1 distal esophageal stricture secondary to GERD-status post bougie dilation #2 small hiatal hernia Recommendations: Probably proceed with colonoscopy tomorrow if stable. Anesthesia: GETA (tiva) Surgeon / Physician: Perez Carey Estimated blood loss: none Specimens: none sent Condition: stable Disposition: post procedure unit Results - Labs CBC & BMP: 01/20/17 07:33 01/20/17 07:33 Discharge Plan - Discharge Medications No Action HYDROcodone/ACETAMIN 10-325 [[place] 10-325] 1 tablet PO Q4H PRN PRN Reason: Pain Clorazepate [Tranxene] 3.75 mg PO TID PRN PRN Reason: Anxiety clonazePAM [Clonazepam] 1 mg PO BEDTIME Amlodipine Besylate/Benazepril [Lotrel 10-20 mg Capsule] 1 each PO DAILY Benzonatate 200 mg PO BID Glyburide/Metformin HCl [Glyburide-Metformin 5-500 mg] 2 each PO BID W/MEALS Docusate Sodium Cap [Colace Cap] 100 mg PO BID OLANZapine [Olanzapine] 5 mg PO BEDTIME #30 tablet Venlafaxine HCl [Venlafaxine HCl ER] 150 mg PO BID #60 tab.er.24 - Follow Up or Referral - Forms/Instructions
[2017-01-20] MEDS ORDERED: MELATONIN 3 MG TABLET PO PRN (13:45)
--- NOTE | 2017-01-20 13:45 | Anesthesia Post-Op ---
Anesthesia Post OP - Post Ansesthetic Evaluation Patient seen in post op: Yes Resp: within normal limits CV: within normal limits Mental: within normal limits Temp: within normal limits [id number]: within normal limits Nausea and Vomiting: within normal limits Pain: within normal limits
--- NOTE | 2017-01-20 15:51 | Neurology Progress Note ---
Neurology - PN : Subjective Interval history: Patient seems to be doing much better. No new problems reported. EGD report noted. Recommend to start baby aspirin a day. Exam (Progress Note) - Constitutional Vitals: Period Temp Pulse Resp BP Sys/Clemente Pulse Ox Last 24 Hr 97.1 F-97.8 F 84-114 15-21 148-200/67-94 92-99 Exam: GENERAL: Patient is in no acute distress. NECK: Neck is supple. There is no JVD. No carotid bruits present. No thyroid masses. CVS: First and second heart sounds are normal. There is no S3 present. Regular rate and rhythm. RESPIRATORY: Lungs are clear to auscultation without any rales or rhonchi. ABDOMEN: Soft and non-tender. Bowel sounds are present. There is no hepatosplenomegaly. EXT: There is no palpable edema. Peripheral pulses are present. Skin: No rashes Central Nervous system: General: Alert, awake and Oriented x 3 Speech: Fluent Comprehension: Intact and normal Facial expressions: Normal Cranial Nerves: CN1/Olfactory: Normal CN II/ Optic: Normal, Visual Diez unreliable CN III, and : GAMALIEL & EOMI CN V: Normal & intact CN VII: face is symmetric CNVIII: Normal CN XI/X/XI/XII: Intact and Normal Motor: Bulk and Tone is normal. Strength in the right 5/5 Strength in the left 0/5 Sensory: Decreased for all the modalities of PP, LT and temp sense in the glove and stocking distribution Reflexes: 1+ and symmetrical Cerebellar function: Normal finger to nose testing in the right and could not do it in the left. Toes: Equivocal Gait: Not tested Results - Labs CBC & BMP: 01/20/17 07:33 01/20/17 07:33 Assessment and Plan (1) TIA (transient ischemic attack) Status: Acute Assessment and plan: Start and continue baby aspirin a day Family would like to go to swing bed Sign off please call as needed Current Visit: Yes Quality Measures - VTE Contraindication to Pharmacological VTE Prophylaxis: High Risk of Bleeding - Stroke Onset of Symptoms Date: 01/19/17 Onset of Symptoms Time: 12:00 Presenting Symptoms: Right hemiparesis
[2017-01-20] MEDS ORDERED: POLYETHYLENE GLYCOL POWDER 255 GM BOTTLE PO ONE (18:00)
--- NOTE | 2017-01-20 19:13 | ECHO Report ---
Hiwot Wilks Exam Date: 01/20/2017 07:54 Referring Physician: Technologist: Eleni Hernandes RDCS Age: 76 Ht (in): 63 Wt (lb): 200 Gender: F Exam Location: [facility] Echo Indications: Weakness, Slurred speech, Essential (primary) hypertension, Diabetes, Hyperlipidemia, unspecified, COPD BP: 164 / 92 HR: 92 Rhythm: Sinus Technical Quality: IMPRESSIONS Normal left ventricular cavity size. Mild concentric left ventricular hypertrophy. Hyperdynamic systolic function, without outflow tract obstruction, estimated left ventricular ejection fraction 70%. Grade 1 diastolic dysfunction. Mild aortic valve sclerosis. No aortic valve stenosis. No aortic valve regurgitation. Mild pulmonary hypertension. MEASUREMENTS (Male / Female) Normal Values 2D ECHO LV Diastolic Diameter PLAX 4.2 cm 4.2 - 5.9 / 3.9 - 5.3 cm LV Systolic Diameter PLAX 2.5 cm LV Fractional Shortening PLAX 40.7 % IVS Diastolic Thickness 1.2 cm 0.6 - 1.0 / 0.6 - 0.9 cm LVPW Diastolic Thickness 1.2 cm 0.6 - 1.0 / 0.6 - 0.9 cm RV Internal Dim ED PLAX 2.4 cm Aortic Root Diameter 2.5 cm LA Systolic Diameter LX 3.0 cm 3.0 - 4.0 / 2.7 - 3.8 cm DOPPLER TR Peak Velocity 278.0 cm/s TR Peak Gradient 30.9 mmHg FINDINGS Left Ventricle Normal left ventricular cavity size. Mild concentric left ventricular hypertrophy. Hyperdynamic systolic function, without outflow tract obstruction, estimated left ventricular ejection fraction 70%. Grade 1 diastolic dysfunction. Right Ventricle The right ventricle is normal in size and function. Right Atrium The right atrium is normal in size. Left Atrium The left atrium is normal in size Mitral Valve Morphologically normal mitral valve without significant stenosis or prolapse. There is no mitral regurgitation. Aortic Valve Mild aortic valve sclerosis. No aortic valve stenosis. No aortic valve regurgitation. Tricuspid Valve Morphologically normal tricuspid valve. Mild tricuspid valve regurgitation. Tricuspid regurgitation velocities suggest a PAP of 41 mmHg. Pulmonic Valve Morphologically normal pulmonic valve without significant stenosis. There is no pulmonic regurgitation. Pericardium Normal pericardium without effusion. Aorta Normal ascending aorta dimension. Cam Chaidez (Electronically Signed) Final Date: 20 January 2017 19:11
[2017-01-20] MEDS: ATORVASTATIN 40 MG TABLET PO SCH (22:35)
[2017-01-20] MEDS ORDERED: MAGNESIUM CITRATE 300 ML BOTTLE PO STA (22:45)
[2017-01-21] MEDS: ALBUTEROL/IPRATROPIUM 3 ML NEB RESP TX SCH ×4 (00:22→20:07)
[2017-01-21] MEDS: INSULIN LISPRO 100 UNIT/ML SUBCUT SCH ×5 (00:45→22:18)
[2017-01-21] MEDS ORDERED: MAGNESIUM CITRATE 300 ML BOTTLE PO ONE (06:00)
[2017-01-21 08:23] LABS: Basophils % 0.4 % (0.0-0.8); Eosinophils # 0.1 10*3/uL (0.0-0.87); Eosinophils % 1.7 % (0.00-10.9); Hemoglobin 12.9 GM/DL (12.0-16.0); Immature Granulocytes % 0.3 %; Immature Granulocytes Absolute 0.02 #; Lymphocytes # 1.1 10*3/uL (1.4-4.0); Lymphocytes % 15.1 % (21.3-54.2); Mean Corpuscular HGB Conc 31.5 GM/DL (32-36); Mean Corpuscular Hemoglobin 27 PG (27-34); Mean Corpuscular Volume 87.2 FL (87-102); Mean Platelet Volume 9.6 FL (9.6-12.0); Monocytes # 0.5 10*3/uL (0.11-0.8); Monocytes % 6.3 % (1.7-12.7); Neutrophils # 5.7 10*3/uL (1.4-7.4); Neutrophils % 76.2 % (38.7-73.9); Platelet Count 453 T/CUMM (130-400); Red Cell Distribution Width 15.5 % (9.3-17.3); White Blood Count 7.4 T/CUMM (4-12)
[2017-01-21 08:55] LABS: Calcium 8.8 MG/DL (8.5-10.1); Osmolality,Calculated 282.1 MOS/KG (273-304); Potassium 4.5 MMOL/L (3.5-5.1)
--- NOTE | 2017-01-21 09:02 | Family Practice Progress Note ---
Family Practice - PN: Subj Interval history: PCP :, Consultants on case: Neurologist,GI Patient seen and examined on the telemetry floor, Admitted for TIA, weakness improving, has history of dysphagia,s/p EGD and dilatation,has GERD and hiatal hernia, history of dark stools, nothing by mouth , C scope scheduled today Has h/o HTN/DM/Hyperlipidemia, COPD, depression, h/o Left sided weakness secondary to CVA 2+ yrs ago, history of cerebral aneurysm status post craniotomy 15 years ago. Overall feeling better than yesterday, just had bowel movement, it looks dark colored No fever, nausea, vomiting, chest pain, shortness of breath noted. On inhalers/ oxygen for COPD, Exam (Progress Note) - Constitutional Vitals: Period Temp Pulse Resp BP Sys/Clemente Pulse Ox Last 24 Hr 96.3 F-98.0 F 82-114 15-21 148-200/67-94 92-99 Exam: General Examination: GENERAL APPEARANCE: alert and oriented X 2, lying in bed, obese female pt , HEENT: normal. EYES: extraocular movement intact (EOMI), conjunctiva clear, normal. NECK/THYROID: neck supple, full range of motion, no cervical lymphadenopathy, no thyromegaly. HEART: regular rate and rhythm, no murmurs, rubs, gallops. LUNGS: Clear to auscultation bilaterally. ABDOMEN: soft, nontender, mildly distended, no organomegaly , bowel sounds present. NEUROLOGIC: alert and oriented X 2, speech more clear than yesterday, angle of mouth deviated to left(possibly from old CVA), Strength 5/5 Rt UE, 4-/ 5 Rt LE, 0-1/5 Left UE/LE Results - Labs CBC & BMP: 01/21/17 08:08 01/21/17 08:08 Lab Results: I have reviewed the past 24 hour labs Labs: Stool, urine culture negative so far from 01/18/17 Assessment and Plan (1) TIA (transient ischemic attack) Status: Acute Assessment and plan: , CT head Negative, follow neurology recommendations, we'll try for [facility] placement Continue PT/OT/ 2. HTN , blood pressure high, start her on Lotrel, will give IV hydralazine 1 time dose now 3. History of dysphagia, has GERD, hiatal hernia, on Protonix, Has h/o black stool H/H stable currently, FOBT positive,C-scope today, , 4. COPD , on duoneb's treatment continue O2 , 5. DM, stable, will do only SS insulin , 6.Hyperlipedemia, continue lipitor, 7.depression will continue effexor,held zyprexa Current cigarrete smoker, add Nicotine patch Current Visit: Yes (2) Hypertension Status: Chronic Current Visit: Yes (3) COPD (chronic obstructive pulmonary disease) Status: Chronic Current Visit: Yes (4) Nicotine dependence, cigarettes, uncomplicated Status: Chronic Current Visit: Yes (5) Depression Status: Chronic Current Visit: Yes (6) History of CVA (cerebrovascular accident) Status: Chronic Current Visit: Yes (7) Hyperlipidemia Status: Chronic Current Visit: Yes (8) Type 2 diabetes mellitus Status: Chronic Current Visit: Yes (9) Hiatal hernia with GERD Status: Chronic Current Visit: Yes Quality Measures - VTE Contraindication to Pharmacological VTE Prophylaxis: High Risk of Bleeding - Stroke Onset of Symptoms Date: 01/19/17 Onset of Symptoms Time: 12:00 Presenting Symptoms: Right hemiparesis
[2017-01-21] MEDS ORDERED: hydrALAZINE 20 MG/1 ML VIAL IV ONE (09:53)
[2017-01-21] MEDS: NICOTINE 21 MG/24 HR PATCH TRANSDERM SCH (11:02)
[2017-01-21] MEDS: VENLAFAXINE XR 75 MG CAPSULE PO SCH ×2 (11:03→17:28)
[2017-01-21] MEDS: PANTOPRAZOLE 40 MG TABLET PO SCH ×2 (11:03→17:29)
[2017-01-21] MEDS: DOCUSATE SODIUM 100 MG CAPSULE PO SCH ×3 (11:03→22:18)
--- NOTE | 2017-01-21 12:54 | Gastrointestinal Progress Note ---
Assessment and Plan (1) Melena Status: Acute Assessment and plan: 01/21-colonoscopy postponed due to inadequate prep. Continue MiraLAX prep and clear liquids. Reschedule for tomorrow. Plan an addendum to followed by Dr. Carey 01/19-reports of melena over the last several weeks with constipation. Reports of daily BC powders as well as epigastric discomfort and worsening GERD. Prior history of endoscopy in the past. Obtain endoscopic records from endoscopic clinic if available. Note that colonoscopy was recently scheduled but canceled. Tentative EGD tomorrow to further evaluate findings. Further plan an addendum to followed by Dr. Carey. Current Visit: Yes Gastroenterology - PN: Subj Interval history: CC: Melena Patient is seen asleep with daughter at bedside. She was scheduled for colonoscopy today however she has had an inadequate bowel prep. Decision was made to postpone colonoscopy until tomorrow and continue her prep and clear liquids today. No reports of overt bleeding and been noted. She denies any abdominal pain, nausea vomiting. H&H is stable at . ROS: No acute distress noted Exam (Progress Note) - Constitutional Vitals: Period Temp Pulse Resp BP Sys/Clemente Pulse Ox Last 24 Hr 96.3 F-98.0 F 82-114 16-21 148-200/72-94 92-99 - Other Additional findings: General appearance: normal weight, no acute distress - Head Head exam: Present: normal inspection, normocephalic - Eye Eye exam: Present: other (Lids and conjunctivae are unremarkable). Absent: scleral icterus - ENT ENT exam: Present: normal exam, normal oropharynx - Neck Neck exam: Present: normal inspection - Respiratory Respiratory exam: Present: clear to auscultation bilaterally. Absent: rales, rhonchi, wheezes - Cardiovascular Cardiovascular exam: Present: regular rate and rhythm. Absent: diastolic murmur , JVD, systolic murmur - GI/Abdominal GI/Abdominal exam: Present: normal bowel sounds, soft. Absent: ascites, distended, mass, organomegaly, tenderness - Extremities Exam Extremities exam: Present: normal inspection, full ROM - Back Exam Back exam: Present: normal inspection - Neurological Exam Neurological exam: Present: alert, oriented X3 - Psychiatric Psychiatric exam: Present: normal affect, normal mood - Skin Skin exam: Present: normal color, warm, dry Results - Labs CBC & BMP: 01/21/17 08:08 01/21/17 08:08 Lab Results: I have reviewed the past 24 hour labs
[2017-01-21] MEDS ORDERED: POLYETHYLENE GLYCOL POWDER 255 GM BOTTLE PO ONE (12:55)
[2017-01-21] MEDS: ATORVASTATIN 40 MG TABLET PO SCH (22:18)
[2017-01-22] MEDS: ALBUTEROL/IPRATROPIUM 3 ML NEB RESP TX SCH ×4 (00:21→20:17)
[2017-01-22] MEDS ORDERED: MAGNESIUM CITRATE 300 ML BOTTLE PO ONE (07:02)
--- NOTE | 2017-01-22 08:36 | Family Practice Progress Note ---
Family Practice - PN: Subj Interval history: PCP :, Consultants on case: Neurologist,GI Patient seen and examined on the telemetry floor, Admitted for TIA, weakness at rt UE IMPROVED, has history of dysphagia,s/p EGD and dilatation,has GERD and hiatal hernia, history of dark stools, nothing by mouth, C scope was rescheduled today Has h/o HTN/DM/Hyperlipidemia, COPD, depression, h/o Left sided hemiplegia, secondary to CVA 2+ yrs ago, history of cerebral aneurysm status post craniotomy 15 years ago. weakness on right side improved, No fever, nausea, vomiting, chest pain, shortness of breath noted. On inhalers/ oxygen for COPD, No overnight events reported by the nurse, Will work for [facility] placement if she qualifies at discharge Exam (Progress Note) - Constitutional Vitals: Period Temp Pulse Resp BP Sys/Clemente Pulse Ox Last 24 Hr 97.1 F-97.7 F 84-102 16-20 135-175/66-88 92-100 Exam: General Examination: GENERAL APPEARANCE: alert and oriented X 2, lying in bed, obese female pt , HEENT: normal. EYES: extraocular movement intact (EOMI), conjunctiva clear, normal. NECK/THYROID: neck supple, full range of motion, no cervical lymphadenopathy, no thyromegaly. HEART: regular rate and rhythm, no murmurs, rubs, gallops. LUNGS: Clear to auscultation bilaterally. ABDOMEN: soft, nontender, mildly distended, no organomegaly , bowel sounds present. NEUROLOGIC: alert and oriented X 2,, angle of mouth deviated to left( possibly from old CVA), Strength 5/5 Rt UE, 4-/5 Rt LE, 0-1/5 Left UE/LE Results - Labs CBC & BMP: 01/21/17 08:08 01/21/17 08:08 Lab Results: I have reviewed the past 24 hour labs Assessment and Plan (1) TIA (transient ischemic attack) Status: Acute Assessment and plan: , CT head Negative, follow neurology recommendations, we'll try for [facility] K[facility]em placement Continue PT/OT/ 2. HTN , blood pressure high, increase Lotrel, 3. History of dysphagia, has GERD, hiatal hernia, on Protonix, Has h/o black stool H/H stable currently, FOBT positive,C-scope today, , 4. COPD , on duoneb's treatment continue O2 , 5. DM, stable, will do only SS insulin , 6.Hyperlipedemia, continue lipitor, 7.depression will continue effexor,held zyprexa Current cigarrete smoker, add Nicotine patch Current Visit: Yes (2) Hypertension Status: Chronic Current Visit: Yes (3) COPD (chronic obstructive pulmonary disease) Status: Chronic Current Visit: Yes (4) Nicotine dependence, cigarettes, uncomplicated Status: Chronic Current Visit: Yes (5) Depression Status: Chronic Current Visit: Yes (6) History of CVA (cerebrovascular accident) Status: Chronic Current Visit: Yes (7) Hyperlipidemia Status: Chronic Current Visit: Yes (8) Type 2 diabetes mellitus Status: Chronic Current Visit: Yes (9) Hiatal hernia with GERD Status: Chronic Current Visit: Yes Quality Measures - VTE Contraindication to Pharmacological VTE Prophylaxis: High Risk of Bleeding - Stroke Onset of Symptoms Date: 01/19/17 Onset of Symptoms Time: 12:00 Presenting Symptoms: Right hemiparesis
[2017-01-22] MEDS ORDERED: PROPOFOL 200 MG/20 ML VIAL IV ONE (11:56)
[2017-01-22] MEDS ORDERED: LIDOCAINE 2% 5 ML VIAL ONE (11:56)
--- NOTE | 2017-01-22 11:56 | History and Physical Update ---
History and Physical Update - History and Physical H&P was reviewed, the patient examined and there: are no changes in the patients condition since last H&P was completed. - Physical Exam Mental Status: alert and oriented Heart: regular rate and rhythm Lung: clear to auscultation Abdomen: within normal limits Vitals: within normal limits
--- NOTE | 2017-01-22 12:15 | Operative Note ---
Date of procedure: 01/22/17 Pre-op diagnosis: colon screening Procedure: Procedure: Flexible sigmoidoscopy (attempted colonoscopy) Brief clinical abstract: Patient is a 76-year-old female who presents for colon cancer screening. She denies any localizing GI symptoms. We had scheduled colonoscopy for yesterday but her bowel prep was not clear. Procedure findings: After informed consent was obtained, patient was placed in the left leg keep this. Digital exam is full no palpable abdomen is felt. Pediatric colonoscope was inserted rectum advanced level of the proximal sigmoid colon. Patient had a amount of stool in her colon which we tried to wash away but it could never clear. She had extensive diverticulosis in the sigmoid colon and an acute turn at her proximal sigmoid colon which I could not pass under direct vision with all the stool there. Repositioning her to the supine position did not help. I elected to withdrawal the endoscope at this point. A large number of diverticuli were noted and sigmoid colon. No obvious polyps were seen but visibility was limited by bowel prep. The endoscope was withdrawn in the rectum which revealed moderate sized internal hemorrhoids. The endoscope was then removed. She appeared to tolerate the procedure well. Impression: #1 sigmoid diverticulosis #2 poor bowel prep Recommendations: Discuss with family. Options would be to reprep for colonoscopy later, check stools for occult blood, or cologuard stool DNA testing. Anesthesia: GETA (tiva) Surgeon / Physician: Perez Carey Estimated blood loss: none Specimens: none sent Condition: stable Disposition: post procedure unit Results - Labs CBC & BMP: 01/21/17 08:08 01/21/17 08:08 Discharge Plan - Discharge Medications No Action HYDROcodone/ACETAMIN 10-325 [[place] 10-325] 1 tablet PO Q4H PRN PRN Reason: Pain Clorazepate [Tranxene] 3.75 mg PO TID PRN PRN Reason: Anxiety clonazePAM [Clonazepam] 1 mg PO BEDTIME Amlodipine Besylate/Benazepril [Lotrel 10-20 mg Capsule] 1 each PO DAILY Benzonatate 200 mg PO BID Glyburide/Metformin HCl [Glyburide-Metformin 5-500 mg] 2 each PO BID W/MEALS Docusate Sodium Cap [Colace Cap] 100 mg PO BID OLANZapine [Olanzapine] 5 mg PO BEDTIME #30 tablet Venlafaxine HCl [Venlafaxine HCl ER] 150 mg PO BID #60 tab.er.24 - Follow Up or Referral - Forms/Instructions
[2017-01-22] MEDS: INSULIN LISPRO 100 UNIT/ML SUBCUT SCH ×4 (13:47→21:16)
[2017-01-22] MEDS: PANTOPRAZOLE 40 MG TABLET PO SCH (13:50)
[2017-01-22] MEDS: VENLAFAXINE XR 75 MG CAPSULE PO SCH (13:51)
[2017-01-22] MEDS: DOCUSATE SODIUM 100 MG CAPSULE PO SCH ×2 (13:51→21:15)
[2017-01-22] MEDS: NICOTINE 21 MG/24 HR PATCH TRANSDERM SCH (13:55)
[2017-01-22] MEDS: ATORVASTATIN 40 MG TABLET PO SCH (21:15)
[2017-01-23] MEDS: ALBUTEROL/IPRATROPIUM 3 ML NEB RESP TX SCH ×4 (00:12→19:22)
[2017-01-23 06:09] LABS: Basophils % 0.5 % (0.0-0.8); Eosinophils # 0.2 10*3/uL (0.0-0.87); Eosinophils % 2.6 % (0.00-10.9); Hematocrit 37.9 VOL% (35.7-47.0); Hemoglobin 11.8 GM/DL (12.0-16.0); Immature Granulocytes % 0.4 %; Immature Granulocytes Absolute 0.03 #; Lymphocytes # 1.5 10*3/uL (1.4-4.0); Mean Corpuscular HGB Conc 31.1 GM/DL (32-36); Mean Corpuscular Hemoglobin 27 PG (27-34); Mean Corpuscular Volume 87.3 FL (87-102); Mean Platelet Volume 9.5 FL (9.6-12.0); Monocytes # 0.4 10*3/uL (0.11-0.8); Monocytes % 5.9 % (1.7-12.7); Neutrophils # 5.1 10*3/uL (1.4-7.4); Neutrophils % 69.6 % (38.7-73.9); Platelet Count 414 T/CUMM (130-400); Red Blood Count 4.34 MC/CUMM (3.8-5.5); Red Cell Distribution Width 15.4 % (9.3-17.3); White Blood Count 7.3 T/CUMM (4-12)
[2017-01-23 06:47] LABS: Calcium 8.5 MG/DL (8.5-10.1); Magnesium 2.6 MG/DL (1.8-2.4); Osmolality,Calculated 279.4 MOS/KG (273-304); Potassium 3.7 MMOL/L (3.5-5.1)
--- NOTE | 2017-01-23 08:18 | Family Practice Progress Note ---
Family Practice - PN: Subj Interval history: Patient seen resting well. Discussed with her daughter the situation. Her vital signs are stable and her lab is good this morning. No acute complaints and had a good sleep last night. We are going to restart some SCD hose at this time. Exam (Progress Note) - Constitutional Vitals: Period Temp Pulse Resp BP Sys/Clemente Pulse Ox Last 24 Hr 97.2 F-99.3 F 68-100 14-20 116-192/70-94 90-99 Exam: Asleep at this time. Does arouse. HEENT neck is supple trachea midline Cardiovascular rate regular 93 Lungs few basilar rales but otherwise clear Abdomen soft nondistended Results - Labs CBC & BMP: 01/23/17 05:08 01/23/17 05:08 Quality Measures - VTE Contraindication to Pharmacological VTE Prophylaxis: High Risk of Bleeding - Stroke Onset of Symptoms Date: 01/19/17 Onset of Symptoms Time: 12:00 Presenting Symptoms: Right hemiparesis
[2017-01-23] MEDS: VENLAFAXINE XR 75 MG CAPSULE PO SCH (09:50)
[2017-01-23] MEDS: DOCUSATE SODIUM 100 MG CAPSULE PO SCH ×2 (09:50→20:31)
[2017-01-23] MEDS: PANTOPRAZOLE 40 MG TABLET PO SCH (09:50)
[2017-01-23] MEDS: INSULIN LISPRO 100 UNIT/ML SUBCUT SCH ×4 (09:50→22:08)
[2017-01-23] MEDS: NICOTINE 21 MG/24 HR PATCH TRANSDERM SCH (10:02)
[2017-01-23] MEDS: ATORVASTATIN 40 MG TABLET PO SCH (20:31)
[2017-01-23] MEDS: clonazePAM 0.5 MG TABLET PO SCH (20:31)
[2017-01-24] MEDS: ALBUTEROL/IPRATROPIUM 3 ML NEB RESP TX SCH ×4 (00:11→18:58)
[2017-01-24] MEDS ORDERED: NON-FORMULARY MEDICATION (Venlafaxine Hcl [Venlafaxine Hcl Er] 150 MG) PO SCH (09:00)
[2017-01-24] MEDS: INSULIN LISPRO 100 UNIT/ML SUBCUT SCH ×4 (09:09→22:41)
[2017-01-24] MEDS: VENLAFAXINE 75 MG TABLET PO SCH ×2 (09:11→21:26)
[2017-01-24] MEDS: DOCUSATE SODIUM 100 MG CAPSULE PO SCH ×2 (09:11→21:26)
[2017-01-24] MEDS: glyBURIDE/METFORMIN 5-500 MG TABLET PO SCH ×2 (09:11→16:16)
[2017-01-24] MEDS: PANTOPRAZOLE 40 MG TABLET PO SCH (09:11)
[2017-01-24] MEDS: NICOTINE 21 MG/24 HR PATCH TRANSDERM SCH (09:12)
--- NOTE | 2017-01-24 10:21 | Family Practice Progress Note ---
Family Practice - PN: Subj Interval history: 01/23/2017: Patient seen resting well. Discussed with her daughter the situation. Her vital signs are stable and her lab is good this morning. No acute complaints and had a good sleep last night. We are going to restart some SCD hose at this time. New 01/24/2017: Patient seen this morning she had a fairly good night last night. No acute distress. Continues to have mild weakness but seems to be a little improved. She did have a TIA and was having some dysphasia and is status post EGD with dark stools. Continuing to await placement and, in a rehab or swing bed in the morning. Blood sugars are holding steady. No changes otherwise Exam (Progress Note) - Constitutional Vitals: Period Temp Pulse Resp BP Sys/Clemente Pulse Ox Last 24 Hr 96.9 F-97.8 F 72-93 16-20 133-179/62-93 90-99 Results - Labs CBC & BMP: 01/23/17 05:08 01/23/17 05:08 Quality Measures - VTE Contraindication to Pharmacological VTE Prophylaxis: High Risk of Bleeding - Stroke Onset of Symptoms Date: 01/19/17 Onset of Symptoms Time: 12:00 Presenting Symptoms: Right hemiparesis
[2017-01-24] MEDS ORDERED: OLANZapine 5 MG TABLET PO SCH (21:00)
[2017-01-24] MEDS ORDERED: NON-FORMULARY MEDICATION (Clonazepam [Clonazepam] 1 MG) PO SCH (21:00)
[2017-01-24] MEDS: ATORVASTATIN 40 MG TABLET PO SCH (21:26)
[2017-01-24] MEDS: clonazePAM 0.5 MG TABLET PO SCH (21:27)
[2017-01-25] MEDS: ALBUTEROL/IPRATROPIUM 3 ML NEB RESP TX SCH ×2 (00:11→06:53)
[2017-01-25 06:04] LABS: Basophils % 0.6 % (0.0-0.8); Eosinophils # 0.4 10*3/uL (0.0-0.87); Eosinophils % 5.6 % (0.00-10.9); Hematocrit 35.9 VOL% (35.7-47.0); Hemoglobin 11.2 GM/DL (12.0-16.0); Immature Granulocytes % 0.3 %; Immature Granulocytes Absolute 0.02 #; Lymphocytes # 1.1 10*3/uL (1.4-4.0); Mean Corpuscular HGB Conc 31.2 GM/DL (32-36); Mean Corpuscular Hemoglobin 27 PG (27-34); Mean Corpuscular Volume 86.9 FL (87-102); Mean Platelet Volume 9.8 FL (9.6-12.0); Monocytes # 0.4 10*3/uL (0.11-0.8); Monocytes % 6.2 % (1.7-12.7); Neutrophils % 71.3 % (38.7-73.9); Platelet Count 433 T/CUMM (130-400); Red Blood Count 4.13 MC/CUMM (3.8-5.5); Red Cell Distribution Width 15.4 % (9.3-17.3)
[2017-01-25 06:35] LABS: Calcium 8.3 MG/DL (8.5-10.1); Osmolality,Calculated 282.1 MOS/KG (273-304); Potassium 4.1 MMOL/L (3.5-5.1)
[2017-01-25] MEDS: DOCUSATE SODIUM 100 MG CAPSULE PO SCH (09:08)
[2017-01-25] MEDS: glyBURIDE/METFORMIN 5-500 MG TABLET PO SCH (09:08)
[2017-01-25] MEDS: NICOTINE 21 MG/24 HR PATCH TRANSDERM SCH (09:09)
[2017-01-25] MEDS: PANTOPRAZOLE 40 MG TABLET PO SCH (09:10)
--- NOTE | 2017-01-25 09:30 | Discharge Summary ---
Hospital Course - Hospital Course Hospital Course: PCP :, Consultants on case: GI, neurology, pt was brought by the family to Er, for weakness at rt side, slurry speech, could not get up from bed from rt side at home, is usually wheelchair-bound. Used to have physical therapy at home, last PT at home done 2 months ago. Has h/o HTN/DM/Hyperlipidemia, COPD, depression, h/o Left sided weakness secondary to CVA 2+ yrs ago, history of cerebral aneurysm status post craniotomy 15 years ago.Smokes 1/2 PPD. Admitted for h/o Rt sided weakness, which improved, diagnosed with TIA, also had hypoglycemia in ER, was corrected, ,CT HEAD was negative, Neurology was consulted,the right-sided weakness improved significantly the following day, blood pressure meds were held because the blood pressure was not that high from admission, antiplatelet agents were held,since Also had complaints of increased GERD as well as dysphagia, dark stools with constipation, GI was consulted, on admission, patient had a CT of the abdomen with findings of hepatic steatosis and diverticulosis. EGD, 01/20/17,Impression: #1 distal esophageal stricture secondary to GERD- status post bougie dilation #2 small hiatal hernia Cscope could not be completed on 01/21/17, cause of poor bowel prep, and was rescheduled, c-SCOPE 01/22/17,Impression: #1 sigmoid diverticulosis, #2 poor bowel prep. PT/OT was consulted, and the recommendations were followed during the hospital stay. H&H was stable during the hospital stay, please refer to the discharge labs. Patient was initially started on sliding scale insulin, DuoNeb's treatment, her home blood pressure medication was started on 01/21/2017, and was increased on , nicotine patch was prescribed since she is a current smoker. As per the family, patient's request, swing bed request was made. Patient refused inpatient rehab placement,at [facility]. if cleared by GI, pt can be started on Asprin 81 mg Qdaily,atleast., Diagnosis - Discharge Diagnosis (1) TIA (transient ischemic attack) Status: Acute (2) Hypertension Status: Chronic (3) COPD (chronic obstructive pulmonary disease) Status: Chronic (4) Nicotine dependence, cigarettes, uncomplicated Status: Chronic (5) Depression Status: Chronic (6) History of CVA (cerebrovascular accident) Status: Chronic (7) Hyperlipidemia Status: Chronic (8) Type 2 diabetes mellitus Status: Chronic (9) Hiatal hernia with GERD Status: Chronic (10) Sigmoid diverticulosis Status: Chronic (11) History of melena Status: Acute Specialty Discharge - Follow Up or Referrals Follow up with: Kamron Fitzpatrick DO [Primary Care Provider] - 2 Weeks (with H&H) Perez Carey MD [Physician] - (3-4 weeks appt) Discharge Plan - Discharge Data Disposition: Swing Bed, [facility] Based, [facility] Condition at Discharge: Stable Discharge Diet: low salt diet Activity: as per physical therapy - Discharge Medications New Atorvastatin [Lipitor] 40 mg PO BEDTIME tablet glyBURIDE/METFORMIN 5-500 [Glucovance 5-500] 2 tablet PO BID W/MEALS tablet Pantoprazole Tab [Protonix Tab] 40 mg PO DAILY tablet Albuterol/Ipratropium Neb [Duoneb] 3 ml RESP TX RT Q6H Nicotine [Nicotine 14 mg/24 Hr Patch] 1 patch TRANSDERM DAILY #30 patch Continue HYDROcodone/ACETAMIN 10-325 [[place] 10-325] 1 tablet PO Q4H PRN PRN Reason: Pain Clorazepate [Tranxene] 3.75 mg PO TID PRN PRN Reason: Anxiety clonazePAM [Clonazepam] 1 mg PO BEDTIME Amlodipine Besylate/Benazepril [Lotrel 10-20 mg Capsule] 1 each PO DAILY Benzonatate 200 mg PO BID Docusate Sodium Cap [Colace Cap] 100 mg PO BID OLANZapine [Olanzapine] 5 mg PO BEDTIME #30 tablet Venlafaxine HCl [Venlafaxine HCl ER] 150 mg PO BID #60 tab.er.24 Discontinued Glyburide/Metformin HCl [Glyburide-Metformin 5-500 mg] 2 each PO BID W/MEALS - Follow Up or Referral Follow Up: Perez Carey MD [Physician] - (3-4 weeks appt) Kamron Fitzpatrick DO [Primary Care Provider] - 2 Weeks (with H&H) - Forms/Instructions Exam - Constitutional Vitals: Period Temp Pulse Resp BP Sys/Clemente Pulse Ox Last 24 Hr 97.0 F-98.6 F 77-96 17-22 133-156/59-71 88-100 Exam: General Examination: GENERAL APPEARANCE: alert and oriented X 2, lying in bed, obese female pt , has Nascimento catheter in place. HEENT: normal. EYES: extraocular movement intact (EOMI), conjunctiva clear, normal. NECK/THYROID: neck supple, full range of motion, no cervical lymphadenopathy, no thyromegaly. HEART: regular rate and rhythm, no murmurs, rubs, gallops. LUNGS: Clear to auscultation bilaterally. ABDOMEN: soft, nontender, mildly distended, no organomegaly , bowel sounds present. NEUROLOGIC: alert and oriented X 2,, angle of mouth deviated to left( possibly from old CVA), Strength 5/5 Rt UE, 4-/5 Rt LE, 0-1/5 Left UE/LE Discharge Results Procedures and tests throughout hospitalization: Pending Orders 01/21/17 09:45 Occult Blood, Stool Routine Labs on day of discharge: Labs from last 24 hours 01/25/17 01/25/17 01/24/17 05:33 05:33 20:53 WBC 7.0 RBC 4.13 Hgb 11.2 L Hct 35.9 MCV 86.9 L MCH 27 MCHC 31.2 L RDW 15.4 Plt Count 433 H MPV 9.8 Neut % (Auto) 71.3 Lymph % (Auto) 16.0 L Harper % (Auto) 6.2 Eos % (Auto) 5.6 Baso % (Auto) 0.6 Neut # (Auto) 5.0 Lymph # (Auto) 1.1 L Harper # (Auto) 0.4 Eos # (Auto) 0.4 Baso # (Auto) 0.0 Immature Gran % 0.3 Nucleated RBC % 0.0 Immature Gran # 0.02 Nucleated RBCs # 0.00 Immature Plt Fraction 0.0 Sodium 142 Potassium 4.1 Chloride 101 Carbon Dioxide 37 H Anion Gap 8.1 BUN 4 L Creatinine 0.60 GFR Calculation 115 BUN/Creatinine Ratio 6.00 Glucose 155 H POC Glucose 142 H Calculated Osmolality 282.1 Calcium 8.3 L Magnesium 2.0 01/24/17 01/24/17 01/24/17 17:53 17:34 11:26 WBC RBC Hgb Hct MCV MCH MCHC RDW Plt Count MPV Neut % (Auto) Lymph % (Auto) Harper % (Auto) Eos % (Auto) Baso % (Auto) Neut # (Auto) Lymph # (Auto) Harper # (Auto) Eos # (Auto) Baso # (Auto) Immature Gran % Nucleated RBC % Immature Gran # Nucleated RBCs # Immature Plt Fraction Sodium Potassium Chloride Carbon Dioxide Anion Gap BUN Creatinine GFR Calculation BUN/Creatinine Ratio Glucose POC Glucose 148 H 49 L* 265 H Calculated Osmolality Calcium Magnesium - Impressions ECHO, Date of Service: 01/19/17 IMPRESSIONS Normal left ventricular cavity size. Mild concentric left ventricular hypertrophy. Hyperdynamic systolic function, without outflow tract obstruction, estimated left ventricular ejection fraction 70%. Grade 1 diastolic dysfunction. Mild aortic valve sclerosis. No aortic valve stenosis. No aortic valve regurgitation. Mild pulmonary hypertension. CAROTID US,Date of Service: 01/19/17 Impression: There is 50-79% diameter reduction narrowing of the left internal carotid artery and 16-49% diameter reduction narrowing of the right internal carotid artery using indirect NASCET criteria. - Imaging and Cardiology Procedure: CT Abdomen and Pelvis: report reviewed by me, CT - chest: report reviewed by me, CT: report reviewed by me DS: Provider Date of admission: 01/19/17 00:07 Primary care physician: Kamron Fitzpatrick DO Attending physician on admission: Kamron Fitzpatrick DO Consults: 01/19/17 00:08 Consult to Case Mgmt/Social Srvs [CONS] Routine Reason for Case Mgmt/Social Srvs: Discharge Planning 01/19/17 00:19 Consult to Physician [CONS] Routine Comment: Consulting Provider: Perez Carey Consult to Specialist Group: Gastroenterology Consult Notification Comment: left message at 0835 of consult Consult to Physician [CONS] Routine Comment: Right arm leg weak slurred speech Consulting Provider: Jack Fuentes Consult to Specialist Group: Neurology Person Notified: Perlita Date Notified: 01/19/17 Time Notified: 08:35 01/19/17 02:52 Consult to Diabetes Center, Educator [CONS] Routine 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: Diabetes Education Diet Consult to Pastoral Services [CONS] ADMIT Comment: Pastoral Screen: Request Box Stapler Visit Pastoral Screen Source of Request: Family 01/19/17 09:37 Consult to Physical Therapy [CONS] Routine Reason for Physical Therapy: Evaluate and Treat Consult Comment: s/p old CVA with left sided weakness, now with new right sided weakness 09/12/17 09:38 Consult to Occupational Therapy [CONS] Routine Reason for Occupational Therapy: Evaluate and Treat Consult Comment: old CVA with left sided weakness, new right sided weakness 01/22/17 08:54 Consult to Case Mgmt/Social Srvs [CONS] Routine Reason for Case Mgmt/Social Srvs: Swingbed/SNF/Alf Consult Comment: TM on wednesday Discharging clinician: Ciaran Yoo MD
[2017-01-25] MEDS: INSULIN LISPRO 100 UNIT/ML SUBCUT SCH ×3 (09:50→11:36)
[2017-01-25] MEDS: VENLAFAXINE 75 MG TABLET PO SCH (10:03)
[2017-01-25 13:02] VITALS: BP 166/70
== END 2017-01-25 13:38 | disposition swing bed (61) | DRG 69 ==
LOC: UNDODISIN → N.ED 18:44 → N.EDINP 01-19 00:07 → N.TELES 01-19 00:58
PROVIDERS: ADMIT Family Medicine; ATTEND Family Medicine

== ENCOUNTER 2017-01-27 14:27 | Inpatient (IN) ==
--- NOTE | 2017-01-27 15:18 | XRay Report ---
Single view the chest. Indication: Shortness of breath. Comparison: Exam from earlier today, and remote film from July 05, 2014. The heart is normal in size. There is calcific plaque present within the aortic knob. The mediastinal contours are stable. There is developing infiltrate in the right lung base and there may be a minimal right-sided pleural effusion. The left lung appears clear. Osseous structures are stable. Impression: Development of right basilar infiltrate and suspected small right pleural effusion. PROCEDURE INTERPRETED AT [facility] DEPARTMENT OF RADIOLOGY Final Report Signed by: Dr. Ira Anderson
[2017-01-27] MEDS ORDERED: LEVOFLOXACIN INJ 500 MG in PREMIX 1 EACH IV STA (15:27)
--- NOTE | 2017-01-27 15:34 | Emergency Department Note ---
Cosmo Souza Manpreet, am scribing for, and in the presence of, Jg Herrera MD 15:29. Javier Souza Phillip K, MD, personally performed the services described in this documentation, ascribed by Valentín Wilburn in my presence, and it is both accurate and complete 534 . Arrival - Arrival Chief Complaint: Shortness of Breath Stated Complaint: shortness of breath ED Nursing Triage Note: Brought in per EMS from [facility] with c/o shortness of breath onset this am with worsening approx one hour ago. + expiratory wheezing. Seen here this am, diagnosed with bronchospasms. Daughter reports patient was unable to talk due to shortness of breath prior to arrival. Mode of Arrival: Stretcher Limitations: No Limitations Source: Patient - History of Present Illness HPI Narrative: Pt is a 76 y/o female who is transferred from [facility] with c/o SOB worsening 1 hour ago. Pt was seen in the ED this Am with the same complaint and Dx'ed with bronchospasms. Pt's daughter states the pt had trouble breathing when she went to see them. Pt's daughter also c/o the pt having cough. No other pains/complaints reported to the ED. Onset (ago): hour(s) Consistency: constant Severity: moderate Date of Last Menstrual Period: PM Allergies/Adverse Reactions: Allergies Allergy/AdvReac Type Severity Reaction Status Date / Time codeine Allergy Severe RASH Verified 01/27/17 14:41 morphine Allergy Severe SHORTNESS Verified 01/27/17 14:41 OF BREATH Penicillins Allergy Severe RASH Verified 01/27/17 14:41 metronidazole [From Flagyl] AdvReac Unknown ITCHING Verified 01/27/17 14:41 Home Medications: Home Medications Medication Instructions Recorded Confirmed Type Docusate Sodium Cap [Colace Cap] 100 mg PO BID 11/04/15 01/27/17 History OLANZapine [Olanzapine] 5 mg PO BEDTIME #30 tablet 11/18/15 01/27/17 Rx Venlafaxine HCl [Venlafaxine HCl 150 mg PO BID #60 tab.er.24 11/18/15 01/27/17 Rx ER] Amlodipine Besylate/Benazepril 1 each PO DAILY 05/22/16 01/27/17 History [Lotrel 10-20 mg Capsule] Clorazepate [Tranxene] 3.75 mg PO TID PRN 05/22/16 01/27/17 History HYDROcodone/ACETAMIN 10-325 [[place] 1 tablet PO Q4H PRN 05/22/16 01/27/17 History 10-325] Benzonatate 200 mg PO BID 01/19/17 01/27/17 History clonazePAM [Clonazepam] 1 mg PO BEDTIME 01/19/17 01/27/17 History Albuterol/Ipratropium Neb [Duoneb] 3 ml RESP TX RT Q6H 01/25/17 01/27/17 Rx Atorvastatin [Lipitor] 40 mg PO BEDTIME tablet 01/25/17 01/27/17 Rx Nicotine [Nicotine 14 mg/24 Hr 1 patch TRANSDERM DAILY #30 patch 01/25/17 Rx Patch] Pantoprazole Tab [Protonix Tab] 40 mg PO DAILY tablet 01/25/17 01/27/17 Rx glyBURIDE/METFORMIN 5-500 2 tablet PO BID W/MEALS tablet 01/25/17 01/27/17 Rx [Glucovance 5-500] Loratadine Tab [Claritin Tab] 10 mg PO DAILY 01/27/17 01/27/17 History predniSONE TAB [PredniSONE] 20 mg PO DAILY 01/27/17 01/27/17 History Review of System - Review of System 12 point system: reviewed and no additional remarkable complaints except as stated - Review of System Constitutional: Absent: chills, fever Respiratory: Present: cough, respiratory distress. Absent: wheezing Cardiovascular: Absent: chest pain Gastrointestinal: Absent: abdominal pain, nausea, vomiting, diarrhea Genitourinary female: Absent: dysuria Musculoskeletal: Absent: back pain, leg pain Neurological: Absent: headache, weakness, numbness, paresthesias Medical,Surgical,& Family Hx - Medical History Cardio: History of: Hypertension No history of: Aneurysm, Cardiac Dysrhythmia, Cerebrovascular Disease, Congenital Heart Disease, CHF, CAD, MA, Pacemaker, PVD, Valvular Heart Disease, Cardiovascular Problems Psychological: History of: Anxiety Disorders, Behavior Problems, Depression No history of: ADHD, Bipolar Disorder, Previous Suicide Attempt, Psychiatric/ Substance Abuse Tx, Schizophrenia, Violent Behavior, Psychiatric Problems Neurology: History of: Brain Aneurysm (2008), Cerebrovascular Accident (2014), Peripheral Neuropathy, TIA No history of: Cerebral Hemorrhage, Cerebral Palsy, Dementia, Migraine, Multiple Sclerosis, Parkinson's Disease, Seizures, Vertigo, Neurologocal Cancer HEENT: History of: Dental Problems, Glaucoma No history of: Ear Problem, Eye Problem, Oral Cancer Endocrine: History of: Diabetes Mellitus (IDDM), Diabetes Mellitus (NIDDM) No history of: Adrenal Disease, Dyslipidemia, Thyroid Disorder, Endocrine Cancer, Endocrine Problems Rheumatology: History of;: Rheumatoid Arthritis No history of;: Fibromyalgia, Gout, Myasthenia Gravis, Psoriasis, Sjogrens, Systemic Lupus Erythematosus, Rheumatological Problems Respiratory: History of: COPD, Respiratory Problems (possible VALENCIA) No history of: Asthma, Bronchitis, Intubation, Obstructive Sleep Apnea, Pulmonary Embolism, Pulmonary Hypertension, Pneumonia, Lung Cancer Renal: No history of: Renal (Kidney) Cancer, Dialysis, Renal Failure, Renal Problems Genitourinary: No history of: Bladder Problem, Kidney Stones, Recurring Urinary Tract Infections, Genitourinary Cancer, Problems Gastrointestinal: History of: GERD, Hemorrhoids No history of: Bowel Obstruction, Clostridium Difficile, Crohn's Disease, Diverticulitis/ Diverticulosis, Esophageal Varices, Gastrointestinal Bleed, Hematochezia, Hepatitis, Liver Problems, Pancreatitis, Polyps, Ulcerative Colitis Musculoskeletal: No history of: Amputation, Back/Neck Problems, Degenerative Disk Disease, Herniated Disk, Osteoporosis, Musculoskeletal Cancer, Musculoskeletal Problems Hematology: No history of: Anemia, Blood Transfusion Reaction, Bleeding Problems, Clotting Problems, Sickle Cell Disease, Hematologic Cancer, Blood Disorders Reproductive: No history of: Abnormal Pap Smear, Breast Cancer, Endometriosis, Ectopic , Ovarian Cysts, Sexually Transmitted Disorders Other: No history of: Anesthesia Reactions, Anaphylaxis, Cancer, Eczema, HIV, Malignant Hyperthermia, MRSA, Vancomycin-Resistant Enterococci, Skin Problems, Miscellaneous Medical Problems - Surgical History Cardiac Surgeries: Patient Denies: Femoral-Popliteal Bypass Graft, Cardiac Catheterization, Cardiac Surgery, Carotid Endarterectomy, Internal Defibrillator, Vascular Access Devices Thoracic Surgeries: Patient denies;: Kidney (Renal Surgery), Lithotripsy, Nephrectomy, Organ Transplant, Lobectomy Neurologic Surgeries: Surgical HX of: Brain Aneurysm (2008) Patient denies: Cerebral Hemorrhage, Neurologic Surgery HEENT Surgeries: Patient denies: Carotid Endarterectomy, Eye Surgery, Thyroid Surgery, Tonsilectomy & Adenoidectomy Abdominal Surgeries: Patient denies: Abdominal Surgery, Appendectomy, Cholecystectomy, Colonoscopy , Gastric Bypass Surgery, EGD, Splenectomy Reproductive Surgeries: Surgical HX of;: Hysterectomy (Partial) Patient denies;: Section, Cystoscopy, Genitourinary Surgery Orthopedic Surgeries: Patient denies;: Implanted Devices, Orthopedic Surgery, Spinal Surgery, Total Hip Replacement, Total Knee Replacement - Family History Family History: Reports;: Family Diabetes (grandmother, aunt), Family Heart Disease (mother), Family Hypertension (mother), Family Stroke (father) Denies;: Family Anesthesia Reaction, Family Cancer, Family Psychiatric Problems - Social History Smoking Status: Current every day smoker Frequency of Alcohol Use: None Type of Drug Use: None Exam Vital Signs: Vital Signs Temperature 97.4 F L 01/27/17 14:45 Pulse Rate 114 H 01/27/17 14:45 Respiratory Rate 22 01/27/17 14:45 Blood Pressure 191/101 01/27/17 14:45 O2 Sat by Pulse Oximetry 95 01/27/17 14:27 - General General appearance: alert - Head Head exam: Present: atraumatic, normocephalic, normal inspection - Eye Eye exam: Present: normal appearance, PERRL, EOMI - ENT ENT exam: Present: normal exam, normal oropharynx, mucous membranes moist, mucous membranes dry - Neck Neck exam: Present: normal inspection, full ROM, trachea midline - Chest Chest inspection: Present: normal inspection, symmetric chest wall rise. Absent : tenderness - Respiratory Respiratory exam: Present: rales (Bibasal rales). Absent: normal lung sounds bilaterally, accessory muscle use, respiratory distress - Cardiovascular Cardiovascular exam: Present: normal rhythm, tachycardia, normal heart sounds. Absent: murmur, rubs, gallop - Abdominal Exam Abdominal exam: Present: soft, normal bowel sounds. Absent: distention, tenderness, guarding - Extremities Exam Extremities exam: Present: normal inspection, full ROM. Absent: tenderness - Back Exam Back exam: Present: normal inspection, full ROM. Absent: tenderness - Neurological Exam Neurological exam: Present: alert, oriented X3, CN II-XII intact, reflexes normal - Psychiatric Psychiatric exam: Present: normal affect, normal mood - Skin Skin exam: Present: warm, dry, intact, normal color. Absent: pallor Course Course Narrative: Patient discussed with the hospitalist. Results - Labs Lab Results: I have reviewed the patients labs (I reviewed the patient's labs from this morning.) - Diagnostic Findings Procedure: Chest x-ray: report reviewed by me ("Chest X-ray: Development of right basilar infiltrate and suspected small right pleural effusion.") Disposition Clinical Impression: Right lower lobe pneumonia, Recurrent right pleural effusion, Acute exacerbation of chronic obstructive airways disease Case discussed with: patient, patient's family Disposition: Still a Patient Condition: Guarded Additional Instructions: Admit to the hospitalist
[2017-01-27] MEDS ORDERED: LEVOFLOXACIN INJ 100 ML IV ONE (15:54)
--- NOTE | 2017-01-27 16:31 | Family Practice History&Phys ---
Assessment and Plan (1) Right lower lobe pneumonia Status: Acute Assessment and plan: With the right pleural effusion/acute COPD exacerbation, on Levaquin, will add clindamycin, IV steroids, Duonebs treatments, awaiting blood cultures, will repeat a.m. chest x-ray, consult pulmonology. 2. Diabetes, add sliding scale. 3. Hypertension/history of CVA, continue Lotrel,SCds, 4. Dyslipidemia, continue Lipitor. 5. History of depression, will continue Effexor from tomorrow. 6. History of GERD, hiatal hernia add Protonix. 7. Current smoker, add nicotine patch daily Current Visit: Yes (2) Acute exacerbation of chronic obstructive airways disease Status: Acute Current Visit: Yes (3) History of melena Status: Acute Current Visit: No (4) Major depression Status: Chronic Current Visit: Yes (5) Hiatal hernia with GERD Status: Chronic Current Visit: Yes (6) History of CVA (cerebrovascular accident) Status: Chronic Current Visit: Yes (7) Hypertension Status: Chronic Current Visit: Yes (8) Nicotine dependence, cigarettes, uncomplicated Status: Chronic Current Visit: No (9) Sigmoid diverticulosis Status: Chronic Current Visit: Yes (10) Type 2 diabetes mellitus Status: Chronic Current Visit: Yes History of Present Illness Chief complaint: Shortness of breath History of present illness: Ms. Wilks is a 76 year old female PCP: Dr. Fitzpatrick, History obtained from the patient's daughter and ER physician notes reviewed. Patient was brought in by EMS from [facility], [facility], [place] for shortness of breath this afternoon, history of wheezing. Per the daughter, she noticed the patient was breathing hard, prior to ER arrival , patient was brought even this a.m. from [facility] for similar complaints, right-sided pneumonia, with pleural effusion in the second chest x-ray done this afternoon, Patient daughter does not give any complaints of fever, nausea, vomiting, history of cough, productive?, no chest pain, no history of choking spells, Patient has history of COPD, on inhalers, current smoker 1/2 PPD, Patient has history of hypertension, diabetes, hyperlipidemia, depression, history of left hemiplegia secondary to old CVA 2+ years ago, history of cerebral aneurysm status post craniotomy 15 years ago. Patient was admitted and [facility] from 01/19/2017 to 01/25/2017 for TIA, which improved, had history of dysphagia status post EGD this past hospitalization, had this esophageal stricture secondary to GERD, small hiatal hernia On EGD. Patient also had dark stools, C scope showed sigmoid diverticulosis and was with poor bowel prep, Home Medications Medication Instructions Recorded Confirmed Type Docusate Sodium Cap [Colace Cap] 100 mg PO BID 11/04/15 01/27/17 History OLANZapine [Olanzapine] 5 mg PO BEDTIME #30 tablet 11/18/15 01/27/17 Rx Venlafaxine HCl [Venlafaxine HCl 150 mg PO BID #60 tab.er.24 11/18/15 01/27/17 Rx ER] Amlodipine Besylate/Benazepril 1 each PO DAILY 05/22/16 01/27/17 History [Lotrel 10-20 mg Capsule] Clorazepate [Tranxene] 3.75 mg PO TID PRN 05/22/16 01/27/17 History HYDROcodone/ACETAMIN 10-325 [[place] 1 tablet PO Q4H PRN 05/22/16 01/27/17 History 10-325] Benzonatate 200 mg PO BID 01/19/17 01/27/17 History clonazePAM [Clonazepam] 1 mg PO BEDTIME 01/19/17 01/27/17 History Albuterol/Ipratropium Neb [Duoneb] 3 ml RESP TX RT Q6H 01/25/17 01/27/17 Rx Atorvastatin [Lipitor] 40 mg PO BEDTIME tablet 01/25/17 01/27/17 Rx Nicotine [Nicotine 14 mg/24 Hr 1 patch TRANSDERM DAILY #30 patch 01/25/17 Rx Patch] Pantoprazole Tab [Protonix Tab] 40 mg PO DAILY tablet 01/25/17 01/27/17 Rx glyBURIDE/METFORMIN 5-500 2 tablet PO BID W/MEALS tablet 01/25/17 01/27/17 Rx [Glucovance 5-500] Loratadine Tab [Claritin Tab] 10 mg PO DAILY 01/27/17 01/27/17 History predniSONE TAB [PredniSONE] 20 mg PO DAILY 01/27/17 01/27/17 History Allergies Allergy/AdvReac Type Severity Reaction Status Date / Time codeine Allergy Severe RASH Verified 01/27/17 14:41 morphine Allergy Severe SHORTNESS Verified 01/27/17 14:41 OF BREATH Penicillins Allergy Severe RASH Verified 01/27/17 14:41 metronidazole [From Flagyl] AdvReac Unknown ITCHING Verified 01/27/17 14:41 - Constitutional Constitutional: Present: as per HPI - EENT Eyes: Present: as per HPI Nose, mouth and throat: Present: as per HPI - Cardiovascular Cardiovascular: Present: as per HPI - Respiratory Respiratory: Present: as per HPI - Gastrointestinal Gastrointestinal: Present: as per HPI - Genitourinary Genitourinary: Present: as per HPI - Musculoskeletal Musculoskeletal: Present: as per HPI - Neurological Neurological: Present: as per HPI - Psychiatric Psychiatric: Present: as per HPI - Endocrine Endocrine: Present: as per HPI - Hematologic/Lymphatic Hematologic/Lymphatic: Present: as per HPI Medical,Surgical,& Family Hx - Medical History Cardio: History of: Hypertension No history of: Aneurysm, Cardiac Dysrhythmia, Cerebrovascular Disease, Congenital Heart Disease, CHF, CAD, [place], Pacemaker, PVD, Valvular Heart Disease, Cardiovascular Problems Psychological: History of: Anxiety Disorders, Behavior Problems, Depression No history of: ADHD, Bipolar Disorder, Previous Suicide Attempt, Psychiatric/ Substance Abuse Tx, Schizophrenia, Violent Behavior, Psychiatric Problems Neurology: History of: Brain Aneurysm (2008), Cerebrovascular Accident (2014), Peripheral Neuropathy, TIA No history of: Cerebral Hemorrhage, Cerebral Palsy, Dementia, Migraine, Multiple Sclerosis, Parkinson's Disease, Seizures, Vertigo, Neurologocal Cancer HEENT: History of: Dental Problems, Glaucoma No history of: Ear Problem, Eye Problem, Oral Cancer Endocrine: History of: Diabetes Mellitus (IDDM), Diabetes Mellitus (NIDDM) No history of: Adrenal Disease, Dyslipidemia, Thyroid Disorder, Endocrine Cancer, Endocrine Problems Rheumatology: History of;: Rheumatoid Arthritis No history of;: Fibromyalgia, Gout, Myasthenia Gravis, Psoriasis, Sjogrens, Systemic Lupus Erythematosus, Rheumatological Problems Respiratory: History of: COPD, Respiratory Problems (possible VALENCIA) No history of: Asthma, Bronchitis, Intubation, Obstructive Sleep Apnea, Pulmonary Embolism, Pulmonary Hypertension, Pneumonia, Lung Cancer Renal: No history of: Renal (Kidney) Cancer, Dialysis, Renal Failure, Renal Problems Genitourinary: No history of: Bladder Problem, Kidney Stones, Recurring Urinary Tract Infections, Genitourinary Cancer, Problems Gastrointestinal: History of: GERD, Hemorrhoids No history of: Bowel Obstruction, Clostridium Difficile, Crohn's Disease, Diverticulitis/ Diverticulosis, Esophageal Varices, Gastrointestinal Bleed, Hematochezia, Hepatitis, Liver Problems, Pancreatitis, Polyps, Ulcerative Colitis Musculoskeletal: No history of: Amputation, Back/Neck Problems, Degenerative Disk Disease, Herniated Disk, Osteoporosis, Musculoskeletal Cancer, Musculoskeletal Problems Hematology: No history of: Anemia, Blood Transfusion Reaction, Bleeding Problems, Clotting Problems, Sickle Cell Disease, Hematologic Cancer, Blood Disorders Reproductive: No history of: Abnormal Pap Smear, Breast Cancer, Endometriosis, Ectopic , Ovarian Cysts, Sexually Transmitted Disorders Other: No history of: Anesthesia Reactions, Anaphylaxis, Cancer, Eczema, HIV, Malignant Hyperthermia, MRSA, Vancomycin-Resistant Enterococci, Skin Problems, Miscellaneous Medical Problems - Surgical History Cardiac Surgeries: Patient Denies: Femoral-Popliteal Bypass Graft, Cardiac Catheterization, Cardiac Surgery, Carotid Endarterectomy, Internal Defibrillator, Vascular Access Devices Thoracic Surgeries: Patient denies;: Kidney (Renal Surgery), Lithotripsy, Nephrectomy, Organ Transplant, Lobectomy Neurologic Surgeries: Surgical HX of: Brain Aneurysm (2009) Patient denies: Cerebral Hemorrhage, Neurologic Surgery HEENT Surgeries: Patient denies: Carotid Endarterectomy, Eye Surgery, Thyroid Surgery, Tonsilectomy & Adenoidectomy Abdominal Surgeries: Patient denies: Abdominal Surgery, Appendectomy, Cholecystectomy, Colonoscopy , Gastric Bypass Surgery, EGD, Splenectomy Reproductive Surgeries: Surgical HX of;: Hysterectomy (Partial) Patient denies;: Section, Cystoscopy, Genitourinary Surgery Orthopedic Surgeries: Patient denies;: Implanted Devices, Orthopedic Surgery, Spinal Surgery, Total Hip Replacement, Total Knee Replacement - Family History Family History: Reports;: Family Diabetes (grandmother, aunt), Family Heart Disease (mother), Family Hypertension (mother), Family Stroke (father) Denies;: Family Anesthesia Reaction, Family Cancer, Family Psychiatric Problems - Social History Smoking Status: Current every day smoker Frequency of Alcohol Use: None Type of Drug Use: None Exam - Constitutional Vitals: Period Temp Pulse Resp BP Sys/Clemente Pulse Ox Last 24 Hr 97.4 F-97.4 F 114-114 20-22 191-191/101-101 95 Exam: Examination: Examined in the ER GENERAL: Sleeping, but arousable, in no acute distress , obese female pt, HEENT: normal,. NECK: Neck is supple. No JVD. No carotid bruit. No thyromegaly. CVS: Regular rate and rhythm. S1 and S2 are normal. RESPIRATORY: is breathing shallow, respiratory rate of 20/min, on auscultation transmitted breath sounds, mild wheezes bilaterally, basal rales more at right ABDOMEN: Soft and nontender. Bowel sounds are present. No hepatosplenomegaly. EXT: No edema. 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 Could not assess cranial nerves, strength Results - Labs CBC & BMP: 01/27/17 16:54 01/27/17 16:54 Lab Results: I have reviewed the past 24 hour labs - Diagnostic Findings Procedure: Chest x-ray: report reviewed by me, image reviewed by me
[2017-01-27 17:00] LABS: ABG Base Excess 8.1 MMOL/L (-2.5-2.5); ABG HCO3 31.7 MMOL/L (20-26); ABG Oxygen Saturation 92.5 % (95-100); ABG PCO2 65.7 MM HG (35-48); ABG PH 7.352 (7.35-7.45); ABG PO2 70.7 MM HG (80-95); ABG TCO2 32.2 MMOL/L (23-27)
[2017-01-27 17:06] LABS: Basophils % 0.2 % (0.0-0.8); Eosinophils % 0.3 % (0.00-10.9); Hematocrit 41.8 VOL% (35.7-47.0); Hemoglobin 13.1 GM/DL (12.0-16.0); Immature Granulocytes % 0.5 %; Immature Granulocytes Absolute 0.06 #; Lymphocytes # 0.3 10*3/uL (1.4-4.0); Lymphocytes % 2.6 % (21.3-54.2); Mean Corpuscular HGB Conc 31.3 GM/DL (32-36); Mean Corpuscular Hemoglobin 27 PG (27-34); Mean Corpuscular Volume 86.9 FL (87-102); Mean Platelet Volume 10.1 FL (9.6-12.0); Monocytes % 0.3 % (1.7-12.7); Neutrophils # 12.3 10*3/uL (1.4-7.4); Neutrophils % 96.1 % (38.7-73.9); Platelet Count 496 T/CUMM (130-400); Red Blood Count 4.81 MC/CUMM (3.8-5.5); Red Cell Distribution Width 15.8 % (9.3-17.3); White Blood Count 12.8 T/CUMM (4-12)
[2017-01-27 17:22] LABS: PT Patient Result 10.7 SECS; Partial Thromboplastin Time 32.7 SECS (0-40)
[2017-01-27 17:33] LABS: Alanine Aminotransferase 15 U/L (13-56); Albumin 2.9 G/DL (3.4-5.0); Alkaline Phosphatase 127 U/L (45-117); Aspartate Amino Transferase 13 U/L (0-37); Bilirubin,Total < 0.39 MG/DL (0.2-1.0); Blood Urea Nitrogen 8 MG/DL (7-18); Calcium 8.7 MG/DL (8.5-10.1); Glucose 323 MG/DL (74-106); Osmolality,Calculated 282.8 MOS/KG (273-304); Potassium 4.7 MMOL/L (3.5-5.1); Sodium 137 MMOL/L (136-145); Total Protein 6.8 G/DL (6.4-8.3)
[2017-01-27 18:48] LABS: Lymphocytes 7 % (20-55); Segmented Neutrophils 93 % (50-85); Total Cells Counted 100
[2017-01-27 18:49] LABS: Hypochromasia 1+; Platelet Estimate Increased; Poikilocytosis Slight; Tear Drop Cells Few
[2017-01-27] MEDS ORDERED: DEXTROSE 50% 25 GM/50 ML SYRINGE IV PRN (18:52)
[2017-01-27] MEDS ORDERED: GLUCAGON 1 MG VIAL IM PRN (18:52)
[2017-01-27] MEDS: ALBUTEROL/IPRATROPIUM 3 ML NEB RESP TX PRN (20:59)
[2017-01-27] MEDS: LEVOFLOXACIN INJ 500 MG in PREMIX 1 EACH IV SCH (21:08)
[2017-01-27] MEDS: INSULIN LISPRO 100 UNIT/ML SUBCUT SCH (21:13)
[2017-01-27] MEDS: DOCUSATE SODIUM 100 MG CAPSULE PO SCH (21:13)
[2017-01-27] MEDS: ATORVASTATIN 40 MG TABLET PO SCH (21:13)
[2017-01-27] MEDS: methylPREDNISolone SOD SUC 40 MG/1 ML VIAL IV SCH (21:13)
[2017-01-27] MEDS: CLINDAMYCIN INJ 300 MG in PREMIX 1 EACH IV SCH (22:10)
[2017-01-28] MEDS: ALBUTEROL/IPRATROPIUM 3 ML NEB RESP TX PRN (04:12)
[2017-01-28] MEDS ORDERED: ACETAMINOPHEN 325 MG TABLET PO PRN (05:51)
[2017-01-28 06:08] LABS: Basophils % 0.2 % (0.0-0.8); Hematocrit 36.6 VOL% (35.7-47.0); Hemoglobin 11.5 GM/DL (12.0-16.0); Immature Granulocytes % 0.4 %; Immature Granulocytes Absolute 0.05 #; Lymphocytes # 0.6 10*3/uL (1.4-4.0); Lymphocytes % 5.1 % (21.3-54.2); Mean Corpuscular HGB Conc 31.4 GM/DL (32-36); Mean Corpuscular Hemoglobin 27 PG (27-34); Mean Corpuscular Volume 85.7 FL (87-102); Mean Platelet Volume 10.4 FL (9.6-12.0); Monocytes # 0.2 10*3/uL (0.11-0.8); Monocytes % 1.7 % (1.7-12.7); Neutrophils # 10.9 10*3/uL (1.4-7.4); Neutrophils % 92.6 % (38.7-73.9); Platelet Count 472 T/CUMM (130-400); Red Blood Count 4.27 MC/CUMM (3.8-5.5); Red Cell Distribution Width 15.6 % (9.3-17.3); White Blood Count 11.8 T/CUMM (4-12)
[2017-01-28 06:51] LABS: Calcium 9.3 MG/DL (8.5-10.1); Osmolality,Calculated 287.4 MOS/KG (273-304); Potassium 4.8 MMOL/L (3.5-5.1)
[2017-01-28 06:52] LABS: Lymphocytes 6 % (20-55); Segmented Neutrophils 92 % (50-85); Total Cells Counted 100
[2017-01-28 06:53] LABS: Hypochromasia 2+; Platelet Estimate Increased; Target Cells Slight
--- NOTE | 2017-01-28 08:07 | Pulmonology Consult Note ---
Assessment and Plan (1) Pleural effusion, right Status: Acute Assessment and plan: We will get right lateral decubitus x-ray and see if there is enough to tap. Likely it is parapneumonic based on her fever and cough. She had an echo about a week ago that showed normal LV function. I do not think this is congestive heart failure. We will check a BNP. Current Visit: Yes (2) History of CVA (cerebrovascular accident) Status: Chronic Assessment and plan: She has a fairly dense left hemiplegia. Says she can swallow okay. Must consider aspiration as a possibility but I think it is unlikely. Current Visit: Yes (3) Nicotine dependence, cigarettes, uncomplicated Status: Chronic Assessment and plan: Must stop smoking. Current Visit: No (4) Acute exacerbation of chronic obstructive airways disease Status: Acute Assessment and plan: She does have a few wheezes. Treat with bronchodilators in addition to the antibiotics. Low-dose steroids may be helpful. Current Visit: Yes (5) Right lower lobe pneumonia Status: Acute Assessment and plan: This started up while she was at a swing bed. Agree with broad-spectrum antibiotics. Cleocin and Levaquin should be adequate. Current Visit: Yes History of Present Illness Chief complaint: Cough dyspnea fever History of present illness: Ms. Wilks is a 76 year old female who had a stroke couple years back. She has a left hemiparesis. She was at the swing bed at [facility]. She developed cough congestion and fever and was transferred up here. She does have a history of COPD. She has had a craniotomy 15 years ago. She is a smoker. She was brought to the emergency room had a fever of 101.1. Chest x-ray shows probable right lower lobe pneumonia and probable small right pleural effusion. She does have a history of reflux. She was hospitalized here just a little over a week ago for transient ischemic attack. Home Medications Medication Instructions Recorded Confirmed Type Docusate Sodium Cap [Colace Cap] 100 mg PO BID 11/04/15 01/27/17 History OLANZapine [Olanzapine] 5 mg PO BEDTIME #30 tablet 11/18/15 01/27/17 Rx Venlafaxine HCl [Venlafaxine HCl 150 mg PO BID #60 tab.er.24 11/18/15 01/27/17 Rx ER] Amlodipine Besylate/Benazepril 1 each PO DAILY 05/22/16 01/27/17 History [Lotrel 10-20 mg Capsule] Clorazepate [Tranxene] 3.75 mg PO TID PRN 05/22/16 01/27/17 History HYDROcodone/ACETAMIN 10-325 [[place] 1 tablet PO Q4H PRN 05/22/16 01/27/17 History 10-325] Benzonatate 200 mg PO BID 01/19/17 01/27/17 History clonazePAM [Clonazepam] 1 mg PO BEDTIME 01/19/17 01/27/17 History Albuterol/Ipratropium Neb [Duoneb] 3 ml RESP TX RT Q6H 01/25/17 01/27/17 Rx Atorvastatin [Lipitor] 40 mg PO BEDTIME tablet 01/25/17 01/27/17 Rx Nicotine [Nicotine 14 mg/24 Hr 1 patch TRANSDERM DAILY #30 patch 01/25/17 Rx Patch] Pantoprazole Tab [Protonix Tab] 40 mg PO DAILY tablet 01/25/17 01/27/17 Rx glyBURIDE/METFORMIN 5-500 2 tablet PO BID W/MEALS tablet 01/25/17 01/27/17 Rx [Glucovance 5-500] Loratadine Tab [Claritin Tab] 10 mg PO DAILY 01/27/17 01/27/17 History predniSONE TAB [PredniSONE] 20 mg PO DAILY 01/27/17 01/27/17 History Allergies Allergy/AdvReac Type Severity Reaction Status Date / Time codeine Allergy Severe RASH Verified 01/27/17 14:41 morphine Allergy Severe SHORTNESS Verified 01/27/17 14:41 OF BREATH Penicillins Allergy Severe RASH Verified 01/27/17 14:41 metronidazole [From Flagyl] AdvReac Unknown ITCHING Verified 01/27/17 14:41 12 point system: reviewed and no additional remarkable complaints except as stated - Constitutional Constitutional: Present: fever(s), weakness - Cardiovascular Cardiovascular: Present: dyspnea, dyspnea on exertion, edema (She has had edema in both legs since her stroke 2 years ago) - Respiratory Respiratory: Present: cough, dyspnea - Gastrointestinal Gastrointestinal: Present: dyspepsia - Neurological Neurological: Present: focal weakness (Left arm and leg are weak since her stroke) Exam (Pulmonay) H&P - Constitutional Vitals: Period Temp Pulse Resp BP Sys/Clemente Pulse Ox Last 24 Hr 97.4 F-101.1 F 95-114 18-22 139-191/67-101 90-98 Exam: Temperature 101.1. Otherwise vital signs normal. Pupils react to light. Throat is clear. Neck supple no bruits. Chest reveals some rhonchi and mild wheezes bilaterally. No dullness to percussion. Heart normal rate and rhythm no murmurs. Abdomen soft nontender no masses. Extremities no clubbing or cyanosis. She does have 1+ edema. Medical,Surgical,& Family Hx - Medical History Cardio: History of: Hypertension No history of: Aneurysm, Cardiac Dysrhythmia, Cerebrovascular Disease, Congenital Heart Disease, CHF, CAD, [place], Pacemaker, PVD, Valvular Heart Disease, Cardiovascular Problems Psychological: History of: Anxiety Disorders, Behavior Problems, Depression No history of: ADHD, Bipolar Disorder, Previous Suicide Attempt, Psychiatric/ Substance Abuse Tx, Schizophrenia, Violent Behavior, Psychiatric Problems Neurology: History of: Brain Aneurysm (2008), Cerebrovascular Accident (2014), Peripheral Neuropathy, TIA No history of: Cerebral Hemorrhage, Cerebral Palsy, Dementia, Migraine, Multiple Sclerosis, Parkinson's Disease, Seizures, Vertigo, Neurologocal Cancer HEENT: History of: Dental Problems, Glaucoma No history of: Ear Problem, Eye Problem, Oral Cancer Endocrine: History of: Diabetes Mellitus (IDDM), Diabetes Mellitus (NIDDM) No history of: Adrenal Disease, Dyslipidemia, Thyroid Disorder, Endocrine Cancer, Endocrine Problems Rheumatology: History of;: Rheumatoid Arthritis No history of;: Fibromyalgia, Gout, Myasthenia Gravis, Psoriasis, Sjogrens, Systemic Lupus Erythematosus, Rheumatological Problems Respiratory: History of: COPD, Respiratory Problems (possible VALENCIA) No history of: Asthma, Bronchitis, Intubation, Obstructive Sleep Apnea, Pulmonary Embolism, Pulmonary Hypertension, Pneumonia, Lung Cancer Renal: No history of: Renal (Kidney) Cancer, Dialysis, Renal Failure, Renal Problems Genitourinary: No history of: Bladder Problem, Kidney Stones, Recurring Urinary Tract Infections, Genitourinary Cancer, Problems Gastrointestinal: History of: GERD, Hemorrhoids No history of: Bowel Obstruction, Clostridium Difficile, Crohn's Disease, Diverticulitis/ Diverticulosis, Esophageal Varices, Gastrointestinal Bleed, Hematochezia, Hepatitis, Liver Problems, Pancreatitis, Polyps, Ulcerative Colitis Musculoskeletal: No history of: Amputation, Back/Neck Problems, Degenerative Disk Disease, Herniated Disk, Osteoporosis, Musculoskeletal Cancer, Musculoskeletal Problems Hematology: No history of: Anemia, Blood Transfusion Reaction, Bleeding Problems, Clotting Problems, Sickle Cell Disease, Hematologic Cancer, Blood Disorders Reproductive: No history of: Abnormal Pap Smear, Breast Cancer, Endometriosis, Ectopic , Ovarian Cysts, Sexually Transmitted Disorders Other: No history of: Anesthesia Reactions, Anaphylaxis, Cancer, Eczema, HIV, Malignant Hyperthermia, MRSA, Vancomycin-Resistant Enterococci, Skin Problems, Miscellaneous Medical Problems - Surgical History Cardiac Surgeries: Patient Denies: Femoral-Popliteal Bypass Graft, Cardiac Catheterization, Cardiac Surgery, Carotid Endarterectomy, Internal Defibrillator, Vascular Access Devices Thoracic Surgeries: Patient denies;: Kidney (Renal Surgery), Lithotripsy, Nephrectomy, Organ Transplant, Lobectomy Neurologic Surgeries: Surgical HX of: Brain Aneurysm (2008) Patient denies: Cerebral Hemorrhage, Neurologic Surgery HEENT Surgeries: Patient denies: Carotid Endarterectomy, Eye Surgery, Thyroid Surgery, Tonsilectomy & Adenoidectomy Abdominal Surgeries: Patient denies: Abdominal Surgery, Appendectomy, Cholecystectomy, Colonoscopy , Gastric Bypass Surgery, EGD, Splenectomy Reproductive Surgeries: Surgical HX of;: Hysterectomy (Partial) Patient denies;: Section, Cystoscopy, Genitourinary Surgery Orthopedic Surgeries: Patient denies;: Implanted Devices, Orthopedic Surgery, Spinal Surgery, Total Hip Replacement, Total Knee Replacement - Family History Family History: Reports;: Family Diabetes (grandmother, aunt), Family Heart Disease (mother), Family Hypertension (mother), Family Stroke (father) Denies;: Family Anesthesia Reaction, Family Cancer, Family Psychiatric Problems - Social History Smoking Status: Current every day smoker Frequency of Alcohol Use: None Type of Drug Use: None Results - Labs CBC & BMP: 01/28/17 05:37 01/28/17 05:37 Lab Results: I have reviewed the past 24 hour labs - Diagnostic Findings Procedure: Chest x-ray: image reviewed by me (Right lower lobe infiltrate with suggestion of right pleural effusion)
[2017-01-28] MEDS: INSULIN LISPRO 100 UNIT/ML SUBCUT SCH ×4 (08:59→20:24)
[2017-01-28] MEDS: DOCUSATE SODIUM 100 MG CAPSULE PO SCH ×2 (09:00→20:24)
[2017-01-28] MEDS: PANTOPRAZOLE 40 MG TABLET PO SCH (09:00)
[2017-01-28] MEDS: NICOTINE 14 MG/24 HR PATCH TRANSDERM SCH (09:01)
--- NOTE | 2017-01-28 09:10 | XRay Report ---
Exam: XR chest 1V portable Date: 01/28/2017 804 AM Indication: Shortness of breath Comparison: 01/27/2017 Technical: AP Findings: ASVD is present. Mild cardiac enlargement. No obvious consolidating infiltrate or effusion with mild scarring in the lung bases. Oxygen tubing is present. No pneumothorax. Impression: 1. Mild cardiomegaly without overt decompensation. 2. ASVD. PROCEDURE INTERPRETED AT [facility] DEPARTMENT OF RADIOLOGY Final Report Signed by: Dr. Perez Mabry
--- NOTE | 2017-01-28 09:11 | Family Practice Progress Note ---
Family Practice - PN: Subj Interval history: PCP: Dr. Fitzpatrick Consultants on case : [employer] , pt admitted for right lower lobe pneumonia, COPD exacerbation Has h/o DM, HTN , Hyperlipidemia depression, history of left hemiplegia secondary to old CVA 2+ years ago, history of cerebral aneurysm status post craniotomy 15 years ago. pt seen and examined on 2 E. floor , Accompanied by daughter at bedside. lying in bed, Patient complains of having cough, productive with yellow sputum, no blood , one episode of fever since admission, no nausea, vomiting , chest pain , SOB improving Exam (Progress Note) - Constitutional Vitals: Period Temp Pulse Resp BP Sys/Clemente Pulse Ox Last 24 Hr 97.4 F-101.1 F 95-114 18-22 139-191/67-101 90-98 Exam: Examination: GENERAL: Alert, oriented, in no acute distress , obese female pt, lying in the bed, O2 NC 2 lit HEENT: normal,,PERRLA. EOMI. Mucous membranes are moist. NECK: Neck is supple. No JVD. No carotid bruit. No thyromegaly. CVS: mild tachycardic,Regular rhythm. S1 and S2 are normal. RESPIRATORY: Bilateral mild wheezes, basal rales right more than left, ABDOMEN: Soft and nontender. Bowel sounds are present. No hepatosplenomegaly. EXT: No edema. EVENT MANAGER: Patient is awake, alert and oriented, Cranial nerves 2-12 grossly intact except left angle of mouth deviated(from old CVA). Motor strength 0/5 left upper and lower extremity, 4+/5 right upper extremity, 3/5 right lower extremity. Results - Labs CBC & BMP: 01/28/17 05:37 01/28/17 05:37 Lab Results: I have reviewed the past 24 hour labs - Diagnostic Findings Procedure: Chest x-ray: report reviewed by me, image reviewed by me Assessment and Plan (1) Right lower lobe pneumonia Status: Acute Assessment and plan: COPD exacerbation, on Levaquin, clindamycin day 2, IV steroids, Duonebs treatments, awaiting blood cultures, follow pulmonology recommendations. 2. Diabetes, add sliding scale. 3. Hypertension/history of CVA, continue Lotrel,SCds, will get PT/OT consult 4. Dyslipidemia, continue Lipitor. 5. History of depression, will continue Effexor from tomorrow. 6. History of GERD, hiatal hernia add Protonix. 7. Current smoker, add nicotine patch daily Current Visit: Yes (2) Acute exacerbation of chronic obstructive airways disease Status: Acute Current Visit: Yes (3) History of melena Status: Acute Current Visit: No (4) Major depression Status: Chronic Current Visit: Yes (5) Hiatal hernia with GERD Status: Chronic Current Visit: Yes (6) History of CVA (cerebrovascular accident) Status: Chronic Current Visit: Yes (7) Hypertension Status: Chronic Current Visit: Yes (8) Nicotine dependence, cigarettes, uncomplicated Status: Chronic Current Visit: No (9) Sigmoid diverticulosis Status: Chronic Current Visit: Yes (10) Type 2 diabetes mellitus Status: Chronic Current Visit: Yes
--- NOTE | 2017-01-28 09:13 | XRay Report ---
XR chest lateral decubitus RT Indication: Pneumonia, right pleural effusion Comparison: 27 January 2017 Findings: No definite findings of layering effusion seen. There is increased right lung density related to positioning and atelectasis. Impression: No definite findings of effusion. PROCEDURE INTERPRETED AT [facility] DEPARTMENT OF RADIOLOGY Final Report Signed by: Dr. Milton Juarez
[2017-01-28] MEDS: methylPREDNISolone SOD SUC 40 MG/1 ML VIAL IV SCH ×2 (10:01→20:24)
[2017-01-28] MEDS: CLINDAMYCIN INJ 300 MG in PREMIX 1 EACH IV SCH ×2 (11:03→21:31)
[2017-01-28] MEDS: LEVOFLOXACIN INJ 500 MG in PREMIX 1 EACH IV SCH (20:23)
[2017-01-28] MEDS: VENLAFAXINE 75 MG TABLET PO SCH (20:24)
[2017-01-28] MEDS: ATORVASTATIN 40 MG TABLET PO SCH (20:24)
--- NOTE | 2017-01-29 07:33 | Pulmonology Progress Note ---
Pulmonary - PN: Subj Interval history: 76-year-old lady that came up from a swing bed with right lower lobe bronchopneumonia. Had fever. Questionable right pleural effusion. The right lateral decubitus x-ray shows no free fluid. She is on empiric broad-spectrum antibiotics because of healthcare facility associated pneumonia. She feels better today. We will plan repeat chest x-ray tomorrow. She has had a previous stroke and a recent transient ischemic attack. Exam (Progress Note) - Constitutional Vitals: Period Temp Pulse Resp BP Sys/Clemente Pulse Ox Last 24 Hr 97.1 F-99.3 F 92-104 16- 144-170/68-94 93-98 Exam: Patient is alert and responsive. Vital signs normal. Pupils react to light. Throat is clear. Neck supple no bruits. Chest reveals a few rhonchi primarily at the right base. Heart normal rate and rhythm no murmurs. Abdomen soft nontender no masses. Extremities no clubbing cyanosis or edema. Calves nontender. Results - Labs CBC & BMP: 01/28/17 05:37 01/28/17 05:37 Lab Results: I have reviewed the past 24 hour labs - Diagnostic Findings Procedure: Chest x-ray: image reviewed by me (Yesterday's right lateral decubitus x-ray does not show any significant free fluid) Assessment and Plan (1) Pleural effusion, right Status: Acute Assessment and plan: We will get right lateral decubitus x-ray and see if there is enough to tap. Likely it is parapneumonic based on her fever and cough. She had an echo about a week ago that showed normal LV function. I do not think this is congestive heart failure. We will check a BNP. 01/29/2017 there is no significant pleural effusion. Probably a mild pleural reaction. No fluid layers out. Obviously does not need thoracentesis. Her BNP was 20. No signs of heart failure. Current Visit: Yes (2) History of CVA (cerebrovascular accident) Status: Chronic Assessment and plan: She has a fairly dense left hemiplegia. Says she can swallow okay. Must consider aspiration as a possibility but I think it is unlikely. 01/29/2017 she has a left hemiplegia. No difficulty swallowing. Current Visit: Yes (3) Nicotine dependence, cigarettes, uncomplicated Status: Chronic Assessment and plan: Must stop smoking. 01/29/2017 getting nicotine patches Current Visit: No (4) Acute exacerbation of chronic obstructive airways disease Status: Acute Assessment and plan: She does have a few wheezes. Treat with bronchodilators in addition to the antibiotics. Low-dose steroids may be helpful. 01/29/2017 she is having some bronchospasm. Continuing with bronchodilators antibiotics and steroids. Watch glucoses Current Visit: Yes (5) Right lower lobe pneumonia Status: Acute Assessment and plan: This started up while she was at a swing bed. Agree with broad-spectrum antibiotics. Cleocin and Levaquin should be adequate. 01/29/2017 continue current antibiotics. Cultures pending. Current Visit: Yes
[2017-01-29] MEDS: methylPREDNISolone SOD SUC 40 MG/1 ML VIAL IV SCH ×2 (08:40→22:09)
[2017-01-29] MEDS: DOCUSATE SODIUM 100 MG CAPSULE PO SCH ×2 (08:40→20:41)
[2017-01-29] MEDS: VENLAFAXINE 75 MG TABLET PO SCH ×2 (08:40→20:41)
[2017-01-29] MEDS: PANTOPRAZOLE 40 MG TABLET PO SCH (08:40)
[2017-01-29] MEDS: NICOTINE 14 MG/24 HR PATCH TRANSDERM SCH (08:41)
[2017-01-29] MEDS: INSULIN LISPRO 100 UNIT/ML SUBCUT SCH ×4 (08:41→20:40)
[2017-01-29] MEDS: CLINDAMYCIN INJ 300 MG in PREMIX 1 EACH IV SCH ×2 (08:42→22:09)
[2017-01-29 09:11] LABS: Basophils % 0.2 % (0.0-0.8); Eosinophils % 0.1 % (0.00-10.9); Hematocrit 38.7 VOL% (35.7-47.0); Hemoglobin 12.2 GM/DL (12.0-16.0); Immature Granulocytes % 0.6 %; Immature Granulocytes Absolute 0.07 #; Lymphocytes # 1.4 10*3/uL (1.4-4.0); Lymphocytes % 11.6 % (21.3-54.2); Mean Corpuscular HGB Conc 31.5 GM/DL (32-36); Mean Corpuscular Hemoglobin 27 PG (27-34); Mean Corpuscular Volume 85.6 FL (87-102); Mean Platelet Volume 10.1 FL (9.6-12.0); Monocytes # 0.6 10*3/uL (0.11-0.8); Monocytes % 4.9 % (1.7-12.7); Neutrophils # 9.8 10*3/uL (1.4-7.4); Neutrophils % 82.6 % (38.7-73.9); Platelet Count 484 T/CUMM (130-400); Red Blood Count 4.52 MC/CUMM (3.8-5.5); Red Cell Distribution Width 15.6 % (9.3-17.3); White Blood Count 11.9 T/CUMM (4-12)
--- NOTE | 2017-01-29 09:22 | Family Practice Progress Note ---
Family Practice - PN: Subj Interval history: PCP: Dr. 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 Has h/o DM, HTN , Hyperlipidemia depression, history of left hemiplegia secondary to old CVA 2+ years ago, history of cerebral aneurysm status post craniotomy 15 years ago. pt seen and examined on 2 E. floor , Accompanied by daughter at bedside. lying in bed, Patient mentions her symptoms are improving including cough, shortness of breath, had breakfast this a.m. appetite better than yesterday Exam (Progress Note) - Constitutional Vitals: Period Temp Pulse Resp BP Sys/Celmente Pulse Ox Last 24 Hr 97.0 F-99.3 F 92-103 16-22 144-170/68-86 94-98 Exam: Examination: GENERAL: Alert, oriented, in no acute distress , obese female pt, lying in the bed, O2 NC 2 lit HEENT: normal,,PERRLA. EOMI. Mucous membranes are moist. NECK: Neck is supple. No JVD. No carotid bruit. No thyromegaly. CVS: mild tachycardic,Regular rhythm. S1 and S2 are normal. RESPIRATORY: Clear to auscultation bilaterally except mild basal Rales at right lower lobe ABDOMEN: Soft and nontender. Bowel sounds are present. No hepatosplenomegaly. EXT: No edema. SPECIAL EDUCATION RESOURCE TEACHER: Patient is awake, alert and oriented, Cranial nerves 2-12 grossly intact except left angle of mouth deviated(from old CVA). Motor strength 0/5 left upper and lower extremity, 4+/5 right upper extremity, 3/5 right lower extremity. Results - Labs CBC & BMP: 01/29/17 08:44 01/29/17 08:44 Lab Results: I have reviewed the past 24 hour labs - Diagnostic Findings Procedure: Chest x-ray: report reviewed by me, image reviewed by me Assessment and Plan (1) Right lower lobe pneumonia Status: Acute Assessment and plan: COPD exacerbation, improving on Levaquin, clindamycin day 3, IV steroids, Duonebs treatments, blood cultures negative so far, follow backend developer recommendations. Added chest x-ray for tomorrow a.m. 2. Diabetes, on sliding scale. 3. Hypertension/history of CVA, continue Lotrel,SCds, getting PT/OT , add metoprolol for her high blood pressure, will add low-dose aspirin and see if she tolerates,( patient has history of melena) 4. Dyslipidemia, continue Lipitor. 5. History of depression, will continue Effexor 6. History of GERD, hiatal hernia,on Protonix. 7. Current smoker, add nicotine patch daily. Possible re-placement with swing bed when ready for discharge Current Visit: Yes (2) Acute exacerbation of chronic obstructive airways disease Status: Acute Current Visit: Yes (3) History of melena Status: Acute Current Visit: No (4) Major depression Status: Chronic Current Visit: Yes (5) Hiatal hernia with GERD Status: Chronic Current Visit: Yes (6) History of CVA (cerebrovascular accident) Status: Chronic Current Visit: Yes (7) Hypertension Status: Chronic Current Visit: Yes (8) Nicotine dependence, cigarettes, uncomplicated Status: Chronic Current Visit: No (9) Sigmoid diverticulosis Status: Chronic Current Visit: Yes (10) Type 2 diabetes mellitus Status: Chronic Current Visit: Yes
[2017-01-29 09:35] LABS: Osmolality,Calculated 286.7 MOS/KG (273-304); Potassium 4.5 MMOL/L (3.5-5.1)
[2017-01-29] MEDS: ASPIRIN CHEW 81 MG TABLET PO SCH (11:53)
[2017-01-29] MEDS: METOPROLOL TARTRATE 25 MG TABLET PO SCH ×2 (11:53→20:41)
[2017-01-29] MEDS: LEVOFLOXACIN INJ 500 MG in PREMIX 1 EACH IV SCH (19:59)
[2017-01-29] MEDS: ATORVASTATIN 40 MG TABLET PO SCH (20:43)
[2017-01-30 05:58] LABS: Basophils % 0.1 % (0.0-0.8); Hematocrit 38.1 VOL% (35.7-47.0); Hemoglobin 12.2 GM/DL (12.0-16.0); Immature Granulocytes % 0.5 %; Immature Granulocytes Absolute 0.05 #; Lymphocytes # 0.8 10*3/uL (1.4-4.0); Lymphocytes % 9.1 % (21.3-54.2); Mean Corpuscular Hemoglobin 27 PG (27-34); Mean Platelet Volume 10.1 FL (9.6-12.0); Monocytes # 0.2 10*3/uL (0.11-0.8); Monocytes % 2.1 % (1.7-12.7); Neutrophils # 8.1 10*3/uL (1.4-7.4); Neutrophils % 88.2 % (38.7-73.9); Platelet Count 501 T/CUMM (130-400); Red Blood Count 4.48 MC/CUMM (3.8-5.5); Red Cell Distribution Width 15.3 % (9.3-17.3); White Blood Count 9.2 T/CUMM (4-12)
[2017-01-30 06:45] LABS: Calcium 9.1 MG/DL (8.5-10.1); Osmolality,Calculated 286.7 MOS/KG (273-304); Potassium 4.7 MMOL/L (3.5-5.1)
[2017-01-30] MEDS: INSULIN LISPRO 100 UNIT/ML SUBCUT SCH ×4 (08:30→21:20)
[2017-01-30] MEDS: methylPREDNISolone SOD SUC 40 MG/1 ML VIAL IV SCH ×2 (08:31→21:15)
[2017-01-30] MEDS: NICOTINE 14 MG/24 HR PATCH TRANSDERM SCH (08:31)
--- NOTE | 2017-01-30 08:31 | Family Practice Progress Note ---
Family Practice - PN: Subj Interval history: PCP: Dr. Fitzpatrick Consultants on case : Fisher Mussel , pt was transferred from [facility], and is admitted for right lower lobe pneumonia on Levaquin/clindamycin, COPD exacerbation on duonebs inhalers/IV steroids. Has h/o DM, HTN , Hyperlipidemia depression, history of left hemiplegia secondary to old CVA 2+ years ago, history of cerebral aneurysm status post craniotomy 15 years ago. pt seen and examined on 2 E. floor , lying in bed, Patient mentions feeling overall better, has intermittent coughing , shortness of breath significantly, Appetite is fair, sleep is fair, having PT/OT. Mentions has constipation, did not have a bowel movement since 4-5 days now. Exam (Progress Note) - Constitutional Vitals: Period Temp Pulse Resp BP Sys/Clemente Pulse Ox Last 24 Hr 96.3 F-97.9 F 76-95 16-22 147-166/67-97 93-98 Exam: Examination: GENERAL: Alert, oriented, in no acute distress , obese female pt, lying in the bed, O2 NC 2 lit HEENT: normal,,PERRLA. EOMI. Mucous membranes are moist. NECK: Neck is supple. No JVD. No carotid bruit. No thyromegaly. CVS: mild tachycardic,Regular rhythm. S1 and S2 are normal. RESPIRATORY: Clear to auscultation bilaterally except mild basal Rales at right lower lobe ABDOMEN: Soft and nontender. Bowel sounds are present. No hepatosplenomegaly. EXT: No edema. MARKET ANALYST: Patient is awake, alert and oriented, Cranial nerves 2-12 grossly intact except left angle of mouth deviated(from old CVA). Motor strength 0/5 left upper and lower extremity, 4+/5 right upper extremity, 3/5 right lower extremity. Results - Labs CBC & BMP: 01/30/17 05:42 01/30/17 05:42 Lab Results: I have reviewed the past 24 hour labs - Diagnostic Findings Procedure: Chest x-ray: image reviewed by me, report reviewed by me Assessment and Plan (1) Right lower lobe pneumonia Status: Acute Assessment and plan: COPD exacerbation, improving on Levaquin, clindamycin day 4, IV steroids, Duonebs treatments, blood cultures negative so far, follow chinese instructor recommendations. 2. Diabetes, on sliding scale. 3. Hypertension/history of CVA, continue Lotrel, metoprolol/getting PT/OT , on low-dose aspirin, tolerating well 4. Dyslipidemia, continue Lipitor. 5. History of depression, will continue Effexor 6. History of GERD, hiatal hernia,on Protonix. 7. Current smoker, add nicotine patch daily. Added MiraLAX for constipation, as needed Possible re-placement with swing bed when ready for discharge Current Visit: Yes (2) Acute exacerbation of chronic obstructive airways disease Status: Acute Current Visit: Yes (3) History of melena Status: Chronic Current Visit: Yes (4) Major depression Status: Chronic Current Visit: Yes (5) Hiatal hernia with GERD Status: Chronic Current Visit: Yes (6) History of CVA (cerebrovascular accident) Status: Chronic Current Visit: Yes (7) Hypertension Status: Chronic Current Visit: Yes (8) Nicotine dependence, cigarettes, uncomplicated Status: Chronic Current Visit: Yes (9) Sigmoid diverticulosis Status: Chronic Current Visit: Yes (10) Type 2 diabetes mellitus Status: Chronic Current Visit: Yes
[2017-01-30] MEDS: VENLAFAXINE 75 MG TABLET PO SCH ×2 (08:32→20:41)
[2017-01-30] MEDS: DOCUSATE SODIUM 100 MG CAPSULE PO SCH ×2 (08:32→20:41)
[2017-01-30] MEDS: ASPIRIN CHEW 81 MG TABLET PO SCH (08:32)
[2017-01-30] MEDS: PANTOPRAZOLE 40 MG TABLET PO SCH (08:32)
[2017-01-30] MEDS: METOPROLOL TARTRATE 25 MG TABLET PO SCH ×2 (08:32→20:41)
[2017-01-30] MEDS: CLINDAMYCIN INJ 300 MG in PREMIX 1 EACH IV SCH ×2 (08:32→21:16)
--- NOTE | 2017-01-30 10:23 | Pulmonology Progress Note ---
Pulmonary - PN: Subj Interval history: Patient is a 76-year-old black lady that is well known to me. She has a long history of COPD and would not quit smoking. I have not seen her in quite some time. She apparently has had a mild CVA recently. She comes in with a mild exacerbation of her COPD and a right lower lobe pneumonia. She says she is feeling better with less chest congestion. She says she is eating okay and resting fairly well. She feels like her breathing is better. Exam (Progress Note) - Constitutional Vitals: Period Temp Pulse Resp BP Sys/Clemente Pulse Ox Last 24 Hr 96.3 F-97.9 F 76-95 16-22 147-166/67-97 93-98 General appearance: no acute distress (She is resting comfortably at present), over weight - Head Head exam: Present: normal inspection, normocephalic - Eye Eye exam: Present: EOMI. Absent: scleral icterus Pupils: Present: GAMALIEL - ENT ENT exam: Present: normal exam - Neck Neck exam: Absent: lymphadenopathy, thyromegaly - Respiratory Respiratory exam: Present: decreased breath sounds, rhonchi, other (She is moving air fairly well now.) - Cardiovascular Cardiovascular exam: Present: regular rate and rhythm. Absent: gallop, systolic murmur - GI/Abdominal GI/Abdominal exam: Present: soft. Absent: distended, organomegaly, tenderness - Extremities Exam Extremities exam: Absent: calf tenderness, edema - Neurological Exam Neurological exam: Present: alert, oriented X3, other (She has left-sided paresis.) - Psychiatric Psychiatric exam: Present: normal affect - Skin Skin exam: Present: warm, dry Results - Labs CBC & BMP: 01/30/17 05:42 01/30/17 05:42 Assessment and Plan (1) History of CVA (cerebrovascular accident) Status: Chronic Assessment and plan: She has had a significant CVA with left-sided weakness. Current Visit: Yes (2) Nicotine dependence, cigarettes, uncomplicated Status: Chronic Assessment and plan: She has never really stop smoking. Current Visit: No (3) Debility Status: Acute Assessment and plan: The patient has significant vascular problems along with her COPD and is quite disabled. Current Visit: No (4) Acute exacerbation of chronic obstructive airways disease Status: Acute Assessment and plan: She has significant COPD but seems to be breathing comfortably at present. We will continue present therapy. Current Visit: Yes (5) Right lower lobe pneumonia Status: Acute Assessment and plan: She does not have significant right lower lobe pneumonia and at present looks better. She will continue with antibiotics for now. Current Visit: Yes
--- NOTE | 2017-01-30 10:32 | XRay Report ---
History is short of breath comparison 01/28/2017 The heart is enlarged with the mild to slight increasing diffuse interstitial opacities without consolidation Impression: Slight increasing interstitial infiltrates versus edema PROCEDURE INTERPRETED AT [facility] DEPARTMENT OF RADIOLOGY Final Report Signed by: Dr. Elisa Anderson
[2017-01-30] MEDS: LEVOFLOXACIN INJ 500 MG in PREMIX 1 EACH IV SCH (20:07)
[2017-01-30] MEDS: ATORVASTATIN 40 MG TABLET PO SCH (20:41)
[2017-01-30] MEDS: POLYETHYLENE GLYCOL POWDER 17 GM PACK PO PRN (20:44)
[2017-01-31] MEDS ORDERED: PANTOPRAZOLE 20 MG TABLET PO ONE (00:50)
[2017-01-31 05:40] LABS: Hemoglobin 12.2 GM/DL (12.0-16.0); Immature Granulocytes % 0.7 %; Immature Granulocytes Absolute 0.06 #; Lymphocytes # 0.9 10*3/uL (1.4-4.0); Lymphocytes % 10.4 % (21.3-54.2); Mean Corpuscular HGB Conc 32.1 GM/DL (32-36); Mean Corpuscular Hemoglobin 27 PG (27-34); Mean Corpuscular Volume 84.3 FL (87-102); Mean Platelet Volume 10.6 FL (9.6-12.0); Monocytes # 0.3 10*3/uL (0.11-0.8); Monocytes % 3.8 % (1.7-12.7); Neutrophils # 7.6 10*3/uL (1.4-7.4); Neutrophils % 85.1 % (38.7-73.9); Platelet Count 479 T/CUMM (130-400); Red Blood Count 4.51 MC/CUMM (3.8-5.5); Red Cell Distribution Width 15.2 % (9.3-17.3)
[2017-01-31 06:07] LABS: Magnesium 1.8 MG/DL (1.8-2.4); Osmolality,Calculated 283.8 MOS/KG (273-304); Potassium 4.6 MMOL/L (3.5-5.1)
[2017-01-31] MEDS: METOPROLOL TARTRATE 25 MG TABLET PO SCH ×2 (08:31→21:36)
[2017-01-31] MEDS: NICOTINE 14 MG/24 HR PATCH TRANSDERM SCH (08:32)
[2017-01-31] MEDS: PANTOPRAZOLE 40 MG TABLET PO SCH (08:33)
[2017-01-31] MEDS: ASPIRIN CHEW 81 MG TABLET PO SCH (08:33)
[2017-01-31] MEDS: DOCUSATE SODIUM 100 MG CAPSULE PO SCH ×2 (08:33→21:36)
[2017-01-31] MEDS: VENLAFAXINE 75 MG TABLET PO SCH ×2 (08:33→21:36)
[2017-01-31] MEDS: CLINDAMYCIN INJ 300 MG in PREMIX 1 EACH IV SCH ×2 (08:34→21:47)
[2017-01-31] MEDS: INSULIN LISPRO 100 UNIT/ML SUBCUT SCH ×4 (08:34→21:39)
[2017-01-31] MEDS: methylPREDNISolone SOD SUC 40 MG/1 ML VIAL IV SCH ×2 (08:34→21:47)
--- NOTE | 2017-01-31 09:08 | Family Practice Progress Note ---
Family Practice - PN: Subj Interval history: PCP: Dr. 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 Has h/o DM, HTN , Hyperlipidemia depression, history of left hemiplegia secondary to old CVA 2+ years ago, history of cerebral aneurysm status post craniotomy 15 years ago. pt seen and examined on 2 E. floor , lying in bed, Patient mentions feeling overall better, has intermittent coughing , shortness of breath IMPROVED significantly, Appetite is fair, sleep is fair, having PT/OT. Mentions has constipation, did not have a bowel movement YET since 5 DAYS.. Exam (Progress Note) - Constitutional Vitals: Period Temp Pulse Resp BP Sys/Clemente Pulse Ox Last 24 Hr 96.6 F-97.8 F 71-83 17-20 149-183/71-98 95-100 Exam: Examination: GENERAL: Alert, oriented, in no acute distress , obese female pt, lying in the bed, O2 NC 2 lit HEENT: normal,,PERRLA. EOMI. Mucous membranes are moist. NECK: Neck is supple. No JVD. No carotid bruit. No thyromegaly. CVS: Regular rate and rhythm. S1 and S2 are normal. RESPIRATORY: Clear to auscultation bilaterally. ABDOMEN: Soft and nontender. Bowel sounds are present. No hepatosplenomegaly. EXT: No edema. RN COMPLIANCE: Patient is awake, alert and oriented, Cranial nerves 2-12 grossly intact except left angle of mouth deviated(from old CVA). Motor strength 0/5 left upper and lower extremity, 4+/5 right upper extremity, 3/5 right lower extremity. Results - Labs CBC & BMP: 01/31/17 05:00 01/31/17 05:00 Lab Results: I have reviewed the past 24 hour labs Assessment and Plan (1) Right lower lobe pneumonia Status: Acute Assessment and plan: COPD exacerbation, improving on Levaquin, clindamycin day 5, IV steroids, Duonebs treatments, blood cultures negative so far, follow professor of french recommendations. 2. Diabetes, on sliding scale. 3. Hypertension/history of CVA, continue Lotrel, metoprolol/getting PT/OT , on low-dose aspirin, tolerating well 4. Dyslipidemia, continue Lipitor. 5. History of depression, will continue Effexor 6. History of GERD, hiatal hernia,on Protonix. 7. Current smoker, nicotine patch daily. 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 for re-placement with swing bed, will possibly discharge tomorrow Current Visit: Yes (2) Acute exacerbation of chronic obstructive airways disease Status: Acute Current Visit: Yes (3) History of melena Status: Chronic Current Visit: Yes (4) Major depression Status: Chronic Current Visit: Yes (5) Hiatal hernia with GERD Status: Chronic Current Visit: Yes (6) History of CVA (cerebrovascular accident) Status: Chronic Current Visit: Yes (7) Hypertension Status: Chronic Current Visit: Yes (8) Nicotine dependence, cigarettes, uncomplicated Status: Chronic Current Visit: Yes (9) Sigmoid diverticulosis Status: Chronic Current Visit: Yes (10) Type 2 diabetes mellitus Status: Chronic Current Visit: Yes
--- NOTE | 2017-01-31 10:14 | Pulmonology Progress Note ---
Pulmonary - PN: Subj Interval history: Patient is a 76-year-old black lady that is well known to me. She has a long history of COPD and would not quit smoking. I have not seen her in quite some time. She apparently has had a mild CVA recently. She comes in with a mild exacerbation of her COPD and a right lower lobe pneumonia. She says she is feeling better with less chest congestion. She does not feel like she is coughing much and her shortness of breath is better. She had a fairly good night. She is still having a little trouble with constipation. Exam (Progress Note) - Constitutional Vitals: Period Temp Pulse Resp BP Sys/Clemente Pulse Ox Last 24 Hr 96.6 F-97.8 F 71-83 17-20 149-183/71-98 95-100 Exam: General appearance: no acute distress (She is resting comfortably at present. She looks comfortable sitting up in bed.), over weight - Head Head exam: Present: normal inspection, normocephalic - Eye Eye exam: Present: EOMI. Absent: scleral icterus Pupils: Present: GAMALIEL - ENT ENT exam: Present: normal exam - Neck Neck exam: Absent: lymphadenopathy, thyromegaly - Respiratory Respiratory exam: Present: She has fairly good breath sounds bilaterally with some prolonged expiration but no wheezing now. - Cardiovascular Cardiovascular exam: Present: regular rate and rhythm. Absent: gallop, systolic murmur - GI/Abdominal GI/Abdominal exam: Present: soft. Absent: distended, organomegaly, tenderness - Extremities Exam Extremities exam: Absent: calf tenderness, edema - Neurological Exam Neurological exam: Present: alert, oriented X3, other (She has left-sided paresis.) - Psychiatric Psychiatric exam: Present: normal affect - Skin Skin exam: Present: warm, dry Results - Labs CBC & BMP: 01/31/17 05:00 01/31/17 05:00 - Diagnostic Findings Procedure: Chest x-ray: image reviewed by me, report reviewed by me (Chest x- ray mainly shows COPD changes with slight increased markings in the right base.) Assessment and Plan (1) History of CVA (cerebrovascular accident) Status: Chronic Assessment and plan: She has had a significant CVA with left-sided weakness. Current Visit: Yes (2) Nicotine dependence, cigarettes, uncomplicated Status: Chronic Assessment and plan: She has never really stop smoking. Current Visit: Yes (3) Debility Status: Acute Assessment and plan: The patient has significant vascular problems along with her COPD and is quite disabled. She certainly is not able to do much. Current Visit: No (4) Acute exacerbation of chronic obstructive airways disease Status: Acute Assessment and plan: She has significant COPD but seems to be breathing comfortably at present. She is not really wheezing now. We will continue present therapy. Current Visit: Yes (5) Right lower lobe pneumonia Status: Acute Assessment and plan: She does not have significant right lower lobe pneumonia and at present looks better. She is not having any fever or increased cough. She seems to be breathing okay at present. She will continue with antibiotics for now. Current Visit: Yes
[2017-01-31] MEDS: LEVOFLOXACIN INJ 500 MG in PREMIX 1 EACH IV SCH (19:53)
[2017-01-31] MEDS: ATORVASTATIN 40 MG TABLET PO SCH (21:36)
[2017-01-31] MEDS: POLYETHYLENE GLYCOL POWDER 17 GM PACK PO PRN (21:37)
[2017-02-01 06:33] LABS: Basophils % 0.1 % (0.0-0.8); Hematocrit 38.1 VOL% (35.7-47.0); Hemoglobin 12.2 GM/DL (12.0-16.0); Immature Granulocytes % 0.5 %; Immature Granulocytes Absolute 0.05 #; Lymphocytes # 0.8 10*3/uL (1.4-4.0); Lymphocytes % 7.9 % (21.3-54.2); Mean Corpuscular Hemoglobin 27 PG (27-34); Mean Corpuscular Volume 84.7 FL (87-102); Mean Platelet Volume 10.4 FL (9.6-12.0); Monocytes # 0.3 10*3/uL (0.11-0.8); Monocytes % 2.6 % (1.7-12.7); Neutrophils # 9.5 10*3/uL (1.4-7.4); Neutrophils % 88.9 % (38.7-73.9); Platelet Count 480 T/CUMM (130-400); Red Cell Distribution Width 15.3 % (9.3-17.3); White Blood Count 10.7 T/CUMM (4-12)
[2017-02-01 06:56] LABS: Calcium 8.7 MG/DL (8.5-10.1); Potassium 4.7 MMOL/L (3.5-5.1)
[2017-02-01] MEDS ORDERED: FUROSEMIDE 40 MG/4 ML VIAL IV ONE (07:33)
--- NOTE | 2017-02-01 07:35 | Pulmonology Progress Note ---
Pulmonary - PN: Subj Interval history: 76-year-old lady that came up from a swing bed with right lower lobe bronchopneumonia. Had fever. Questionable right pleural effusion. The right lateral decubitus x-ray shows no free fluid. She is on empiric broad-spectrum antibiotics because of healthcare facility associated pneumonia. She feels better today. We will plan repeat chest x-ray tomorrow. She has had a previous stroke and a recent transient ischemic attack. 02/01/2017 does not appear to have right pleural effusion. X-ray shows persistent right basilar infiltrate. Patient is still coughing and having some bronchospasm. Will change DuoNeb to scheduled. Add Delsym regularly. Continuing antibiotic steroids and bronchodilators. Bump with Lasix. Exam (Progress Note) - Constitutional Vitals: Period Temp Pulse Resp BP Sys/Clemente Pulse Ox Last 24 Hr 96.6 F-97.7 F 68-82 18-22 144-161/72-81 92-99 Exam: Patient is alert and responsive. Vital signs normal. Pupils react to light. Throat is clear. Neck supple no bruits. Chest reveals a few rhonchi primarily at the right base. Heart normal rate and rhythm no murmurs. Abdomen soft nontender no masses. Extremities no clubbing cyanosis or edema. Calves nontender. Results - Labs CBC & BMP: 02/01/17 05:30 02/01/17 05:30 Lab Results: I have reviewed the past 24 hour labs Assessment and Plan (1) Pleural effusion, right Status: Acute Assessment and plan: We will get right lateral decubitus x-ray and see if there is enough to tap. Likely it is parapneumonic based on her fever and cough. She had an echo about a week ago that showed normal LV function. I do not think this is congestive heart failure. We will check a BNP. 01/29/2017 there is no significant pleural effusion. Probably a mild pleural reaction. No fluid layers out. Obviously does not need thoracentesis. Her BNP was 20. No signs of heart failure. 01/29/2017 patient did not have significant pleural effusion. There may be some interstitial edema however. Will bump with Lasix Current Visit: Yes (2) History of CVA (cerebrovascular accident) Status: Chronic Assessment and plan: She has a fairly dense left hemiplegia. Says she can swallow okay. Must consider aspiration as a possibility but I think it is unlikely. 01/29/2017 she has a left hemiplegia. No difficulty swallowing. Current Visit: Yes (3) Nicotine dependence, cigarettes, uncomplicated Status: Chronic Assessment and plan: Must stop smoking. 01/29/2017 getting nicotine patches 02/01/2017 again discussed the need to stop smoking Current Visit: Yes (4) Acute exacerbation of chronic obstructive airways disease Status: Acute Assessment and plan: She does have a few wheezes. Treat with bronchodilators in addition to the antibiotics. Low-dose steroids may be helpful. 01/29/2017 she is having some bronchospasm. Continuing with bronchodilators antibiotics and steroids. Watch glucoses 02/01/2017 she is still having some bronchospasm. Continuing bronchodilators and steroids. Current Visit: Yes (5) Right lower lobe pneumonia Status: Acute Assessment and plan: This started up while she was at a swing bed. Agree with broad-spectrum antibiotics. Cleocin and Levaquin should be adequate. 01/29/2017 continue current antibiotics. Cultures pending. 02/01/2017 cultures negative. Continuing empiric antibiotics. Current Visit: Yes
[2017-02-01] MEDS ORDERED: DEXTROMETHORPHAN ER 6 MG/ML 90 ML/BOTTLE PO SCH (09:00)
[2017-02-01] MEDS: NICOTINE 14 MG/24 HR PATCH TRANSDERM SCH (09:49)
[2017-02-01] MEDS: INSULIN LISPRO 100 UNIT/ML SUBCUT SCH ×2 (09:49→11:22)
[2017-02-01] MEDS: DOCUSATE SODIUM 100 MG CAPSULE PO SCH (09:50)
[2017-02-01] MEDS: VENLAFAXINE 75 MG TABLET PO SCH (09:50)
[2017-02-01] MEDS: PANTOPRAZOLE 40 MG TABLET PO SCH (09:52)
[2017-02-01] MEDS: METOPROLOL TARTRATE 25 MG TABLET PO SCH (09:52)
[2017-02-01] MEDS: ASPIRIN CHEW 81 MG TABLET PO SCH (09:54)
[2017-02-01] MEDS: CLINDAMYCIN INJ 300 MG in PREMIX 1 EACH IV SCH (09:54)
[2017-02-01] MEDS: methylPREDNISolone SOD SUC 40 MG/1 ML VIAL IV SCH (10:00)
--- NOTE | 2017-02-01 11:26 | Discharge Summary ---
Hospital Course - Hospital Course Hospital Course: PCP: Dr. 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 Patient was brought in by EMS from [facility] for shortness of breath since the afternoon of admission date, history of wheezing. Per the daughter, she noticed the patient was breathing hard, patient was brought on same day in a.m. from [facility] for similar complaints, NOTED to have right-sided pneumonia, with pleural effusion in the second chest x-ray done this afternoon, had fever, history of cough, productive, no chest pain, no history of choking spells, was noticed to be sleeping more. 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 Last [facility] from 01/19/2017 to 01/25/2017 for TIA, which improved, had history of dysphagia status post EGD this past hospitalization, had this esophageal stricture secondary to GERD, small hiatal hernia On EGD. Patient also had dark stools, C scope showed sigmoid diverticulosis and was with poor bowel prep, Patient was admitted with the diagnosis of right pneumonia, COPD exacerbation, put on Levaquin, clindamycin IV steroids, Duonebs treatments, blood cultures were drawn, was negative 2 till discharge, right lateral decubitus x-ray did not layer the pleural effusion,She had an echo about a week ago that showed normal LV function. BNP was normal this admission, ruled out congestive heart failure. D-dimer was negative. Continued sliding scale for diabetes,. For hypertension continued Lotrel, added metoprolol ,history of CVA, PT/OT continued while in hospital, aspirin 81 mg p.o. daily was added, and patient tolerated it well without bleeding. her H&H was stable during the hospital stay. Dyslipidemia, continued Lipitor.continued Effexor for depression, is Current smoker, added nicotine patch daily, Steroids were stopped at the discharge time, oral antibiotics Levaquin, clindamycin to be continued for next 5 days, only Effexor was continued, and [place], Tranxene, clonazepam, olanzapine were discontinue given her history, current medical status. Patient was transferred back to [facility] at the time of discharge, to get chest x-ray in a week, discussed with , he would be following the patient in a month with chest x-ray ,appointment was done, PCP to be contacted prior to discharge, to make an appointment. Diagnosis - Discharge Diagnosis (1) Right lower lobe pneumonia Status: Acute (2) Acute exacerbation of chronic obstructive airways disease Status: Acute (3) History of melena Status: Chronic (4) Major depression Status: Chronic (5) Hiatal hernia with GERD Status: Chronic (6) History of CVA (cerebrovascular accident) Status: Chronic (7) Hypertension Status: Chronic (8) Nicotine dependence, cigarettes, uncomplicated Status: Chronic (9) Sigmoid diverticulosis Status: Chronic (10) Type 2 diabetes mellitus Status: Chronic Specialty Discharge - Follow Up or Referrals Follow up with: Regulo Martinez MD [Physician] - 03/02/17 2:00 pm (with chest xray) Kamron Fitzpatrick DO [Primary Care Provider] - (need to contact PCP office for appt , when ready to be discharged from swing bed) Discharge Plan - Discharge Data Disposition: Swing Bed, Hos Based, [facility] Condition at Discharge: Stable Discharge Diet: low salt diet Activity: as per physical therapy - Discharge Medications New Aspirin Chew Tab 81 mg PO DAILY tablet Clindamycin HCl [Clindamycin Cap] 450 mg PO Q8HR #15 capsule guaiFENesin ER TAB [Mucinex] 600 mg PO BID tablet Levofloxacin Tab [Levaquin Tab] 500 mg PO DAILY #5 tablet Polyethylene Glycol Powder [Miralax] 17 gm PO DAILY PRN PRN Reason: Constipation Metoprolol Tartrate Tab [Lopressor Tab] 12.5 mg PO BID tablet Continue Atorvastatin [Lipitor] 40 mg PO BEDTIME tablet glyBURIDE/METFORMIN 5-500 [Glucovance 5-500] 2 tablet PO BID W/MEALS tablet Pantoprazole Tab [Protonix Tab] 40 mg PO DAILY tablet Loratadine Tab [Claritin Tab] 10 mg PO DAILY Amlodipine Besylate/Benazepril [Lotrel 10-20 mg Capsule] 1 each PO DAILY Albuterol/Ipratropium Neb [Duoneb] 3 ml RESP TX RT Q6H Nicotine [Nicotine 14 mg/24 Hr Patch] 1 patch TRANSDERM DAILY #30 patch Docusate Sodium Cap [Colace Cap] 100 mg PO BID Venlafaxine HCl [Venlafaxine HCl ER] 150 mg PO BID #60 tab.er.24 Discontinued HYDROcodone/ACETAMIN 10-325 [[place] 10-325] 1 tablet PO Q4H PRN PRN Reason: Pain Clorazepate [Tranxene] 3.75 mg PO TID PRN PRN Reason: Anxiety clonazePAM [Clonazepam] 1 mg PO BEDTIME predniSONE TAB [PredniSONE] 20 mg PO DAILY Benzonatate 200 mg PO BID OLANZapine [Olanzapine] 5 mg PO BEDTIME #30 tablet - Follow Up or Referral Follow Up: Regulo Martinez MD [Physician] - 03/02/17 2:00 pm (with chest xray) Kamron Fitzpatrick DO [Primary Care Provider] - (need to contact PCP office for appt , when ready to be discharged from swing bed) - Forms/Instructions Additional Discharge Instructions: pt needs to have repeat chest x ray in a week at SWING BED( rt pneumonia) Exam - Constitutional Vitals: Period Temp Pulse Resp BP Sys/Clemente Pulse Ox Last 24 Hr 96.9 F-97.8 F 68-82 18-22 144-161/72-81 92-98 Exam: Examination: GENERAL: Alert, oriented, in no acute distress , obese female pt, lying in the bed, O2 NC 2 lit HEENT: normal,,PERRLA. EOMI. Mucous membranes are moist. NECK: Neck is supple. No JVD. No carotid bruit. No thyromegaly. CVS: Regular rate and rhythm. S1 and S2 are normal. RESPIRATORY: Clear to auscultation bilaterally. ABDOMEN: Soft and nontender. Bowel sounds are present. No hepatosplenomegaly. EXT: No edema. HEALTH POLICY MANAGER: Patient is awake, alert and oriented, Cranial nerves 2-12 grossly intact except left angle of mouth deviated(from old CVA). Motor strength 0/5 left upper and lower extremity, 4+/5 right upper extremity, 3/5 right lower extremity. Discharge Results Procedures and tests throughout hospitalization: Pending Orders 01/27/17 15:47 Blood Culture Stat Labs on day of discharge: Labs from last 24 hours 02/01/17 02/01/17 02/01/17 11:07 07:34 05:30 WBC RBC Hgb Hct MCV MCH MCHC RDW Plt Count MPV Neut % (Auto) Lymph % (Auto) [place] % (Auto) Eos % (Auto) Baso % (Auto) Neut # (Auto) Lymph # (Auto) [place] # (Auto) Eos # (Auto) Baso # (Auto) Immature Gran % Nucleated RBC % Immature Gran # Nucleated RBCs # Immature Plt Fraction Sodium 136 Potassium 4.7 Chloride 95 L Carbon Dioxide 37 H Anion Gap 8.7 BUN 14 Creatinine 0.80 GFR Calculation 90 BUN/Creatinine Ratio 17.00 Glucose 350 H POC Glucose 413 H 347 H Calculated Osmolality 286.0 Calcium 8.7 02/01/17 01/31/17 01/31/17 05:30 21:07 16:44 WBC 10.7 RBC 4.50 Hgb 12.2 Hct 38.1 MCV 84.7 L MCH 27 MCHC 32.0 RDW 15.3 Plt Count 480 H MPV 10.4 Neut % (Auto) 88.9 H Lymph % (Auto) 7.9 L [place] % (Auto) 2.6 Eos % (Auto) 0.0 Baso % (Auto) 0.1 Neut # (Auto) 9.5 H Lymph # (Auto) 0.8 L [place] # (Auto) 0.3 Eos # (Auto) 0.0 Baso # (Auto) 0.0 Immature Gran % 0.5 Nucleated RBC % 0.0 Immature Gran # 0.05 Nucleated RBCs # 0.00 Immature Plt Fraction 0.0 Sodium Potassium Chloride Carbon Dioxide Anion Gap BUN Creatinine GFR Calculation BUN/Creatinine Ratio Glucose POC Glucose 281 H 262 H Calculated Osmolality Calcium 01/31/17 11:32 WBC RBC Hgb Hct MCV MCH MCHC RDW Plt Count MPV Neut % (Auto) Lymph % (Auto) [place] % (Auto) Eos % (Auto) Baso % (Auto) Neut # (Auto) Lymph # (Auto) [place] # (Auto) Eos # (Auto) Baso # (Auto) Immature Gran % Nucleated RBC % Immature Gran # Nucleated RBCs # Immature Plt Fraction Sodium Potassium Chloride Carbon Dioxide Anion Gap BUN Creatinine GFR Calculation BUN/Creatinine Ratio Glucose POC Glucose 218 H Calculated Osmolality Calcium Preliminary micro results at discharge 01/27/17 15:47 Blood Culture - Preliminary Blood No growth at 3 days 01/27/17 15:47 Blood Culture - Preliminary Blood No growth at 3 days DS: Provider Date of admission: 01/28/17 09:40 Primary care physician: Kamron Fitzpatrick DO Attending physician on admission: Kamron Fitzpatrick DO Consults: 01/27/17 18:14 Consult to Case Mgmt/Social Srvs [CONS] Routine Reason for Case Mgmt/Social Srvs: Discharge Planning 01/27/17 19:03 Consult to Physician [CONS] Routine Comment: Consulting Provider: Regulo Martinez When should Consulting Provider be notified: Now Person Notified: Dr. Martinze Date Notified: 01/27/17 Time Notified: 19:30 Consult Notification Comment: Will see in A.M NOTIFIED DR MARTINEZ OFFICE ON 01/28/17 RP 01/28/17 09:29 Consult to Physical Therapy [CONS] Routine Reason for Physical Therapy: Evaluate and Treat 01/31/17 12:08 Consult to Case Mgmt/Social Srvs [CONS] Routine Reason for Case Mgmt/Social Srvs: Swingbed/SNF/Senior Care Discharging clinician: Ciaran Yoo MD
[2017-02-01 11:29] VITALS: BP 155/76
[2017-02-01] MEDS ORDERED: ALBUTEROL/IPRATROPIUM 3 ML NEB RESP TX SCH (13:00)
== END 2017-02-01 13:56 | disposition swing bed (61) | DRG 190 ==
LOC: EDBD → EDUNIT# → N.EDINP 14:27 → N.ED 14:27 → N.2E 17:36
PROVIDERS: ADMIT Family Medicine; ATTEND Family Medicine

== ENCOUNTER 2017-11-08 16:09 | Observation (INO) ==
[2017-11-08] MEDS ORDERED: ACETAMINOPHEN 325 MG TABLET PO PRN (16:59)
[2017-11-08] MEDS ORDERED: DEXTROSE 50% 25 GM/50 ML VIAL IV PRN (16:59)
[2017-11-08] MEDS ORDERED: ONDANSETRON 4 MG/2 ML VIAL IV PRN (16:59)
[2017-11-08] MEDS ORDERED: GLUCAGON 1 MG VIAL IM PRN (16:59)
[2017-11-08 18:34] LABS: Basophils # 0.1 10*3/uL (0.0-0.2); Basophils % 0.9 % (0.0-0.8); Eosinophils # 0.4 10*3/uL (0.0-0.87); Eosinophils % 4.6 % (0.00-10.9); Hemoglobin 7.1 GM/DL (12.0-16.0); Immature Granulocytes % 0.5 %; Immature Granulocytes Absolute 0.04 #; Lymphocytes # 1.5 10*3/uL (1.4-4.0); Lymphocytes % 18.3 % (21.3-54.2); Mean Corpuscular HGB Conc 25.1 GM/DL (32-36); Mean Corpuscular Hemoglobin 17 PG (27-34); Mean Platelet Volume 10.7 FL (9.6-12.0); Monocytes # 0.7 10*3/uL (0.11-0.8); Monocytes % 8.9 % (1.7-12.7); NRBC # 0.04 10*3/uL; Neutrophils # 5.4 10*3/uL (1.4-7.4); Neutrophils % 66.8 % (38.7-73.9); Platelet Count 583 T/CUMM (130-400); Red Blood Count 4.16 MC/CUMM (3.8-5.5); Red Cell Distribution Width 21.4 % (9.3-17.3); White Blood Count 8.1 T/CUMM (4-12)
[2017-11-08] MEDS ORDERED: SODIUM CHLORIDE 0.9% 1,000 ML IV PRN (18:43)
[2017-11-08 18:52] LABS: Hematocrit 28.3 VOL% (35.7-47.0)
[2017-11-08] MEDS ORDERED: CLORAZEPATE 3.75 MG TABLET PO SCH (21:00)
[2017-11-08] MEDS: METOPROLOL TARTRATE 25 MG TABLET PO SCH (21:53)
[2017-11-08] MEDS: DOCUSATE SODIUM 100 MG CAPSULE PO SCH (21:53)
[2017-11-08] MEDS: FERROUS SULFATE 325 MG TABLET PO SCH (22:37)
[2017-11-08] MEDS: INSULIN LISPRO 100 UNIT/ML SUBCUT SCH (22:38)
[2017-11-08] MEDS: NITROFURANTOIN MACRO/MONO 100 MG CAPSULE PO SCH (23:03)
[2017-11-08] MEDS: VENLAFAXINE 75 MG TABLET PO SCH (23:04)
[2017-11-08] MEDS: CLOTRIMAZOLE/BETAMETHASONE CREAM 15 GM TUBE TOP SCH (23:05)
[2017-11-09] MEDS: IPRATROPIUM 500 MCG/2.5 ML NEB RESP TX SCH ×3 (07:45→14:00)
[2017-11-09 08:22] LABS: Basophils # 0.1 10*3/uL (0.0-0.2); Basophils % 1.1 % (0.0-0.8); Eosinophils # 0.4 10*3/uL (0.0-0.87); Eosinophils % 5.4 % (0.00-10.9); Hematocrit 33.3 VOL% (35.7-47.0); Immature Granulocytes % 0.5 %; Immature Granulocytes Absolute 0.03 #; Lymphocytes # 1.4 10*3/uL (1.4-4.0); Lymphocytes % 21.2 % (21.3-54.2); Mean Corpuscular HGB Conc 29.4 GM/DL (32-36); Mean Corpuscular Hemoglobin 21 PG (27-34); Mean Corpuscular Volume 70.7 FL (87-102); Mean Platelet Volume 9.6 FL (9.6-12.0); Monocytes # 0.6 10*3/uL (0.11-0.8); Monocytes % 9.3 % (1.7-12.7); NRBC # 0.04 10*3/uL; Neutrophils # 4.2 10*3/uL (1.4-7.4); Neutrophils % 62.5 % (38.7-73.9); Red Blood Count 4.71 MC/CUMM (3.8-5.5); Red Cell Distribution Width 24.8 % (9.3-17.3); White Blood Count 6.6 T/CUMM (4-12)
[2017-11-09 08:28] LABS: Hemoglobin 9.8 GM/DL (12.0-16.0); Platelet Count 444 T/CUMM (130-400)
[2017-11-09] MEDS: INSULIN LISPRO 100 UNIT/ML SUBCUT SCH ×3 (08:34→18:08)
[2017-11-09 08:45] LABS: Anisocytosis 1+; Hypochromasia 1+; Microcytosis 1+; Ovalocytes Slight
[2017-11-09 08:46] LABS: Platelet Estimate Increased; Target Cells Slight
[2017-11-09 08:49] LABS: Alanine Aminotransferase < 6 U/L (13-56); Albumin 2.7 G/DL (3.4-5.0); Alkaline Phosphatase 78 U/L (45-117); Aspartate Amino Transferase 8 U/L (0-37); Blood Urea Nitrogen 7 MG/DL (7-18); Glucose 120 MG/DL (74-106); Osmolality,Calculated 281.1 MOS/KG (273-304); Potassium 3.7 MMOL/L (3.5-5.1); Sodium 142 MMOL/L (136-145); Total Protein 6.4 G/DL (6.4-8.3)
[2017-11-09] MEDS ORDERED: glyBURIDE/METFORMIN 5-500 MG TABLET PO SCH (09:00)
[2017-11-09] MEDS ORDERED: ATORVASTATIN 40 MG TABLET PO SCH (09:00)
[2017-11-09] MEDS ORDERED: MULTIVITAMIN (CENTRUM) TABLET PO SCH (09:00)
[2017-11-09] MEDS ORDERED: amLODIPine 10 MG TABLET PO SCH (09:00)
[2017-11-09] MEDS ORDERED: PANTOPRAZOLE 40 MG TABLET PO SCH (09:00)
[2017-11-09] MEDS ORDERED: BENAZEPRIL 10 MG TABLET PO SCH (09:00)
[2017-11-09] MEDS: metFORMIN 500 MG TABLET PO SCH ×2 (09:13→18:08)
[2017-11-09] MEDS: DOCUSATE SODIUM 100 MG CAPSULE PO SCH (09:14)
[2017-11-09] MEDS: FERROUS SULFATE 325 MG TABLET PO SCH ×2 (09:14→09:24)
[2017-11-09] MEDS: VENLAFAXINE 75 MG TABLET PO SCH (09:15)
[2017-11-09] MEDS: METOPROLOL TARTRATE 25 MG TABLET PO SCH (09:15)
[2017-11-09] MEDS: NITROFURANTOIN MACRO/MONO 100 MG CAPSULE PO SCH (09:16)
[2017-11-09] MEDS: CLOTRIMAZOLE/BETAMETHASONE CREAM 15 GM TUBE TOP SCH (09:16)
[2017-11-09] MEDS ORDERED: MAGNESIUM SULF RIDER 4 GM in PREMIX 1 EACH IV PRN (10:17)
[2017-11-09] MEDS ORDERED: MAGNESIUM SULF RIDER 2 GM in PREMIX 1 EACH IV PRN (10:17)
[2017-11-09 14:05] VITALS: BP 144/69
[2017-11-09] MEDS ORDERED: SERTRALINE 25 MG TABLET PO SCH (14:30)
[2017-11-09 18:16] LABS: Apearance,Urine CLEAR (Clear); Bilirubin,Urine Negative (Negative); Blood, Urine Negative (Negative); Glucose,Urine (UA) Negative (Negative); Ketones,Urine 5 mg/dL (Negative); Mucus,Urine Occasional /LPF (Occasional); Nitrite,Urine Negative (Negative); Protein,Urine Negative; RBC,Urine 1 /HPF (0-4); Urine Color Yellow (Yellow); Urine Specific Gravity 1.015 (1.001-1.035); Urine Urobilinogen < 2.0 EU/DL (0.2-1.0); WBC,Urine <1 /HPF (0-6)
== END 2017-11-09 18:30 | disposition home or self-care (01) ==
LOC: N.4E → SUPCPDRO 16:59
PROVIDERS: ADMIT Family Medicine; ATTEND Family Medicine

== ENCOUNTER 2018-05-04 21:19 | Inpatient (IN) ==
[2018-05-04] MEDS ORDERED: ASPIRIN 325 MG TABLET PO STA (21:47)
[2018-05-04] MEDS ORDERED: ALBUTEROL/IPRATROPIUM 3 ML NEB RESP TX STA (21:47)
[2018-05-04] MEDS ORDERED: ALBUTEROL 2.5 MG/3 ML NEB RESP TX STA ×2 (21:48→22:59)
[2018-05-04 22:21] LABS: INR 0.9
[2018-05-04 22:31] LABS: Alanine Aminotransferase 10 U/L (13-56); Alkaline Phosphatase 97 U/L (45-117); Aspartate Amino Transferase 12 U/L (0-37); Bilirubin,Total < 0.39 MG/DL (0.2-1.0); Blood Urea Nitrogen 10 MG/DL (7-18); Calcium 8.5 MG/DL (8.5-10.1); Glucose 154 MG/DL (74-106); Osmolality,Calculated 278.5 MOS/KG (273-304); Potassium 3.7 MMOL/L (3.5-5.1); Sodium 139 MMOL/L (136-145); Total Protein 7.9 G/DL (6.4-8.3); Troponin I < 0.015 NG/ML (0.00-0.045)
[2018-05-04 22:43] LABS: Basophils # 0.1 10*3/uL (0.0-0.2); Basophils % 0.4 % (0.0-0.8); Eosinophils # 0.3 10*3/uL (0.0-0.87); Eosinophils % 1.4 % (0.00-10.9); Hematocrit 30.4 VOL% (35.7-47.0); Hemoglobin 7.5 GM/DL (12.0-16.0); Immature Granulocytes % 0.7 %; Immature Granulocytes Absolute 0.14 #; Lymphocytes # 1.4 10*3/uL (1.4-4.0); Lymphocytes % 6.7 % (21.3-54.2); Mean Corpuscular HGB Conc 24.7 GM/DL (32-36); Mean Corpuscular Hemoglobin 19 PG (27-34); Mean Corpuscular Volume 75.2 FL (87-102); Mean Platelet Volume 10.1 FL (9.6-12.0); Monocytes # 1.2 10*3/uL (0.11-0.8); Monocytes % 5.7 % (1.7-12.7); NRBC # 0.03 10*3/uL; Neutrophils # 17.6 10*3/uL (1.4-7.4); Neutrophils % 85.1 % (38.7-73.9); Platelet Count 485 T/CUMM (130-400); Red Blood Count 4.04 MC/CUMM (3.8-5.5); Red Cell Distribution Width 27.3 % (9.3-17.3); White Blood Count 20.7 T/CUMM (4-12)
[2018-05-04 22:47] LABS: Lactic Acid 4.2 MMOL/L (0.4-2.0)
[2018-05-04] MEDS ORDERED: LEVOFLOXACIN INJ 750 MG in PREMIX 1 EACH IV STA (22:48)
[2018-05-04] MEDS ORDERED: ONDANSETRON 4 MG/2 ML VIAL IV PRN (22:59)
[2018-05-04] MEDS ORDERED: ACETAMINOPHEN 325 MG TABLET PO PRN (22:59)
[2018-05-04] MEDS ORDERED: SODIUM CHLORIDE 0.9% 1,000 ML IV SCH (23:00)
[2018-05-04] MEDS ORDERED: ALBUTEROL 2.5 MG/3 ML NEB RESP TX SCH (23:00)
[2018-05-04 23:11] LABS: Eosinophils 1 % (0-10); Hypochromasia 1+; Lymphocytes 3 % (20-55); Microcytosis Slight; Platelet Estimate Adequate; Segmented Neutrophils 93 % (50-85); Total Cells Counted 100
[2018-05-05] MEDS: ALBUTEROL/IPRATROPIUM 3 ML NEB RESP TX SCH ×4 (00:24→19:56)
[2018-05-05] MEDS: methylPREDNISolone SOD SUC 40 MG/1 ML VIAL IV SCH ×5 (01:46→21:57)
[2018-05-05 01:59] LABS: Alanine Aminotransferase 10 U/L (13-56); Albumin 2.6 G/DL (3.4-5.0); Alkaline Phosphatase 85 U/L (45-117); Aspartate Amino Transferase 8 U/L (0-37); Bilirubin,Total < 0.39 MG/DL (0.2-1.0); Blood Urea Nitrogen 10 MG/DL (7-18); Calcium 8.5 MG/DL (8.5-10.1); Glucose 153 MG/DL (74-106); Osmolality,Calculated 282.3 MOS/KG (273-304); Potassium 3.2 MMOL/L (3.5-5.1); Sodium 141 MMOL/L (136-145); Total Protein 7.4 G/DL (6.4-8.3)
[2018-05-05 02:19] LABS: Basophils # 0.1 10*3/uL (0.0-0.2); Basophils % 0.4 % (0.0-0.8); Eosinophils # 0.2 10*3/uL (0.0-0.87); Eosinophils % 1.1 % (0.00-10.9); Hemoglobin 6.9 GM/DL (12.0-16.0); Immature Granulocytes % 0.7 %; Immature Granulocytes Absolute 0.14 #; Lymphocytes # 1.1 10*3/uL (1.4-4.0); Lymphocytes % 5.9 % (21.3-54.2); Mean Corpuscular HGB Conc 24.6 GM/DL (32-36); Mean Corpuscular Hemoglobin 19 PG (27-34); Mean Corpuscular Volume 75.5 FL (87-102); Mean Platelet Volume 10.3 FL (9.6-12.0); Monocytes % 5.4 % (1.7-12.7); NRBC # 0.03 10*3/uL; Neutrophils # 16.4 10*3/uL (1.4-7.4); Neutrophils % 86.5 % (38.7-73.9); Platelet Count 428 T/CUMM (130-400); Red Blood Count 3.71 MC/CUMM (3.8-5.5); Red Cell Distribution Width 27.1 % (9.3-17.3)
[2018-05-05] MEDS ORDERED: DEXTROSE 50% 25 GM/50 ML VIAL IV PRN (08:15)
[2018-05-05] MEDS ORDERED: GLUCAGON 1 MG VIAL IM PRN (08:15)
[2018-05-05] MEDS ORDERED: SODIUM CHLORIDE 0.9% 1,000 ML IV PRN (08:24)
[2018-05-05] MEDS: LEVOFLOXACIN INJ 500 MG in PREMIX 1 EACH IV SCH (09:03)
[2018-05-05] MEDS: VENLAFAXINE XR 75 MG CAPSULE PO SCH ×2 (09:03→21:57)
[2018-05-05] MEDS: ROSUVASTATIN 20 MG TABLET PO SCH ×2 (09:04→09:07)
[2018-05-05] MEDS: DOCUSATE SODIUM 100 MG CAPSULE PO SCH ×2 (09:08→21:56)
[2018-05-05] MEDS: ENOXAPARIN 40 MG/0.4 ML SYRINGE SUBCUT SCH (09:09)
[2018-05-05] MEDS: PANTOPRAZOLE 40 MG TABLET PO SCH (09:09)
[2018-05-05] MEDS ORDERED: SODIUM CHLOR 0.9% KCL 40 MEQ 40 MEQ/1,000 ML BAG IV SCH (09:30)
[2018-05-05] MEDS: NICOTINE 14 MG/24 HR PATCH TRANSDERM SCH (10:49)
[2018-05-05] MEDS: CLOTRIMAZOLE/BETAMETHASONE CREAM 15 GM TUBE TOP SCH (10:50)
[2018-05-05] MEDS ORDERED: FUROSEMIDE 40 MG/4 ML VIAL IV ONE (12:22)
[2018-05-05] MEDS: INSULIN LISPRO 100 UNIT/ML SUBCUT SCH ×2 (12:51→17:42)
[2018-05-05] MEDS: POTASSIUM CHLORIDE 20 MEQ TABLET PO SCH ×2 (13:07→21:56)
[2018-05-05] MEDS: FLUTICASONE/SALMETEROL 250-50 DISKUS 14 DOSE INH SCH ×2 (16:16→21:58)
[2018-05-05] MEDS: OLANZapine 2.5 MG TABLET PO SCH (21:57)
[2018-05-06] MEDS: ALBUTEROL/IPRATROPIUM 3 ML NEB RESP TX SCH ×4 (00:44→19:20)
[2018-05-06] MEDS: methylPREDNISolone SOD SUC 40 MG/1 ML VIAL IV SCH ×3 (00:48→22:08)
[2018-05-06] MEDS: INSULIN LISPRO 100 UNIT/ML SUBCUT SCH ×5 (00:49→21:56)
[2018-05-06] MEDS: CLOTRIMAZOLE/BETAMETHASONE CREAM 15 GM TUBE TOP SCH ×3 (05:08→21:53)
[2018-05-06 05:50] LABS: Basophils % 0.2 % (0.0-0.8); Hematocrit 28.5 VOL% (35.7-47.0); Immature Granulocytes % 0.6 %; Lymphocytes # 0.8 10*3/uL (1.4-4.0); Lymphocytes % 4.9 % (21.3-54.2); Mean Corpuscular HGB Conc 26.7 GM/DL (32-36); Mean Corpuscular Hemoglobin 20 PG (27-34); Mean Corpuscular Volume 75.2 FL (87-102); Mean Platelet Volume 10.1 FL (9.6-12.0); Monocytes # 1.1 10*3/uL (0.11-0.8); Monocytes % 6.5 % (1.7-12.7); NRBC # 0.03 10*3/uL; Neutrophils # 14.1 10*3/uL (1.4-7.4); Neutrophils % 87.8 % (38.7-73.9); Platelet Count 418 T/CUMM (130-400); Red Blood Count 3.79 MC/CUMM (3.8-5.5); Red Cell Distribution Width 26.5 % (9.3-17.3); White Blood Count 16.1 T/CUMM (4-12)
[2018-05-06 05:53] LABS: Hemoglobin 7.6 GM/DL (12.0-16.0)
[2018-05-06 06:11] LABS: Hypochromasia 1+; Lymphocytes 1 % (20-55); Microcytosis 1+; Platelet Estimate Normal; Polychromasia Few; Segmented Neutrophils 97 % (50-85); Target Cells Few; Total Cells Counted 100
[2018-05-06 06:24] LABS: Calcium 8.5 MG/DL (8.5-10.1); Osmolality,Calculated 279.5 MOS/KG (273-304); Potassium 3.7 MMOL/L (3.5-5.1)
[2018-05-06] MEDS ORDERED: POTASSIUM CHLORIDE 20 MEQ TABLET PO SCH (09:00)
[2018-05-06] MEDS: MAGNESIUM OXIDE 400 MG TABLET PO SCH ×2 (09:04→21:55)
[2018-05-06] MEDS: PANTOPRAZOLE 40 MG TABLET PO SCH ×2 (09:05→21:55)
[2018-05-06] MEDS: VENLAFAXINE XR 75 MG CAPSULE PO SCH ×2 (09:05→21:54)
[2018-05-06] MEDS: ROSUVASTATIN 20 MG TABLET PO SCH (09:05)
[2018-05-06] MEDS: POTASSIUM CHLORIDE 20 MEQ TABLET PO SCH ×2 (09:05→21:55)
[2018-05-06] MEDS: DOCUSATE SODIUM 100 MG CAPSULE PO SCH ×2 (09:05→21:57)
[2018-05-06] MEDS: FLUTICASONE/SALMETEROL 250-50 DISKUS 14 DOSE INH SCH ×2 (09:06→21:53)
[2018-05-06] MEDS: LEVOFLOXACIN INJ 500 MG in PREMIX 1 EACH IV SCH (09:13)
[2018-05-06] MEDS: ENOXAPARIN 40 MG/0.4 ML SYRINGE SUBCUT SCH (09:13)
[2018-05-06] MEDS: NICOTINE 14 MG/24 HR PATCH TRANSDERM SCH (09:14)
[2018-05-06] MEDS: FERROUS GLUCONATE 324 MG TABLET PO SCH (21:57)
[2018-05-06] MEDS: OLANZapine 2.5 MG TABLET PO SCH (21:57)
[2018-05-07] MEDS: ALBUTEROL/IPRATROPIUM 3 ML NEB RESP TX SCH ×4 (00:56→19:15)
[2018-05-07 05:40] LABS: Calcium 8.2 MG/DL (8.5-10.1); Osmolality,Calculated 285.5 MOS/KG (273-304); Potassium 5.4 MMOL/L (3.5-5.1)
[2018-05-07 06:02] LABS: Basophils % 0.2 % (0.0-0.8); Hematocrit 30.8 VOL% (35.7-47.0); Immature Granulocytes % 1.4 %; Immature Granulocytes Absolute 0.21 #; Lymphocytes # 0.5 10*3/uL (1.4-4.0); Lymphocytes % 3.6 % (21.3-54.2); Mean Corpuscular HGB Conc 26.6 GM/DL (32-36); Mean Corpuscular Hemoglobin 20 PG (27-34); Mean Corpuscular Volume 76.6 FL (87-102); Mean Platelet Volume 10.5 FL (9.6-12.0); Monocytes # 0.4 10*3/uL (0.11-0.8); Monocytes % 2.5 % (1.7-12.7); Neutrophils # 13.7 10*3/uL (1.4-7.4); Neutrophils % 92.3 % (38.7-73.9); Platelet Count 405 T/CUMM (130-400); Red Blood Count 4.02 MC/CUMM (3.8-5.5); Red Cell Distribution Width 25.4 % (9.3-17.3); White Blood Count 14.8 T/CUMM (4-12)
[2018-05-07 06:03] LABS: Hemoglobin 8.2 GM/DL (12.0-16.0)
[2018-05-07 06:18] LABS: Lymphocytes 2 % (20-55); Segmented Neutrophils 98 % (50-85); Total Cells Counted 100
[2018-05-07 06:20] LABS: Hypochromasia 2+; Microcytosis 1+; Platelet Estimate Increased; Polychromasia Slight; Target Cells Few
[2018-05-07] MEDS: LINACLOTIDE 145 MCG CAPSULE PO SCH (07:50)
[2018-05-07] MEDS: INSULIN LISPRO 100 UNIT/ML SUBCUT SCH ×4 (08:50→23:52)
[2018-05-07] MEDS: VENLAFAXINE XR 75 MG CAPSULE PO SCH ×2 (09:06→23:51)
[2018-05-07] MEDS: PANTOPRAZOLE 40 MG TABLET PO SCH ×2 (09:06→23:52)
[2018-05-07] MEDS: MAGNESIUM OXIDE 400 MG TABLET PO SCH ×2 (09:06→23:51)
[2018-05-07] MEDS: DOCUSATE SODIUM 100 MG CAPSULE PO SCH ×2 (09:06→23:52)
[2018-05-07] MEDS: ROSUVASTATIN 20 MG TABLET PO SCH (09:06)
[2018-05-07] MEDS: methylPREDNISolone SOD SUC 40 MG/1 ML VIAL IV SCH ×2 (09:07→23:53)
[2018-05-07] MEDS: FERROUS GLUCONATE 324 MG TABLET PO SCH ×3 (09:07→23:51)
[2018-05-07] MEDS: NICOTINE 14 MG/24 HR PATCH TRANSDERM SCH (09:08)
[2018-05-07] MEDS: POTASSIUM CHLORIDE 20 MEQ TABLET PO SCH (09:08)
[2018-05-07] MEDS: FLUTICASONE/SALMETEROL 250-50 DISKUS 14 DOSE INH SCH ×2 (09:09→23:52)
[2018-05-07] MEDS: CLOTRIMAZOLE/BETAMETHASONE CREAM 15 GM TUBE TOP SCH ×2 (09:09→23:52)
[2018-05-07] MEDS: LEVOFLOXACIN INJ 500 MG in PREMIX 1 EACH IV SCH (09:10)
[2018-05-07] MEDS: OLANZapine 2.5 MG TABLET PO SCH (23:52)
[2018-05-08] MEDS: ALBUTEROL/IPRATROPIUM 3 ML NEB RESP TX SCH ×4 (00:45→19:39)
[2018-05-08 05:31] LABS: Calcium 8.3 MG/DL (8.5-10.1); Potassium 5.1 MMOL/L (3.5-5.1)
[2018-05-08 06:00] LABS: Basophils % 0.2 % (0.0-0.8); Eosinophils % 0.1 % (0.00-10.9); Hematocrit 33.7 VOL% (35.7-47.0); Hemoglobin 8.9 GM/DL (12.0-16.0); Immature Granulocytes % 0.7 %; Lymphocytes # 0.6 10*3/uL (1.4-4.0); Lymphocytes % 4.6 % (21.3-54.2); Mean Corpuscular HGB Conc 26.4 GM/DL (32-36); Mean Corpuscular Hemoglobin 20 PG (27-34); Mean Corpuscular Volume 76.9 FL (87-102); Mean Platelet Volume 10.9 FL (9.6-12.0); Monocytes # 0.3 10*3/uL (0.11-0.8); Monocytes % 1.8 % (1.7-12.7); Neutrophils # 12.8 10*3/uL (1.4-7.4); Neutrophils % 92.6 % (38.7-73.9); Platelet Count 375 T/CUMM (130-400); Red Blood Count 4.38 MC/CUMM (3.8-5.5); Red Cell Distribution Width 25.3 % (9.3-17.3); White Blood Count 13.8 T/CUMM (4-12)
[2018-05-08 06:05] LABS: Hypochromasia 2+; Lymphocytes 3 % (20-55); Microcytosis 1+; Polychromasia Slight; Segmented Neutrophils 94 % (50-85); Target Cells Few; Total Cells Counted 100
[2018-05-08 06:06] LABS: Anisocytosis 1+; Ovalocytes Slight; Poikilocytosis 1+; Stomatocytes Slight; Tear Drop Cells Slight
[2018-05-08] MEDS: LINACLOTIDE 145 MCG CAPSULE PO SCH (07:59)
[2018-05-08] MEDS: ROSUVASTATIN 20 MG TABLET PO SCH (09:45)
[2018-05-08] MEDS: MAGNESIUM OXIDE 400 MG TABLET PO SCH (09:45)
[2018-05-08] MEDS: FERROUS GLUCONATE 324 MG TABLET PO SCH ×2 (09:45→14:37)
[2018-05-08] MEDS: DOCUSATE SODIUM 100 MG CAPSULE PO SCH (09:45)
[2018-05-08] MEDS: methylPREDNISolone SOD SUC 40 MG/1 ML VIAL IV SCH (09:45)
[2018-05-08] MEDS: PANTOPRAZOLE 40 MG TABLET PO SCH (09:45)
[2018-05-08] MEDS: NICOTINE 14 MG/24 HR PATCH TRANSDERM SCH (09:46)
[2018-05-08] MEDS: VENLAFAXINE XR 75 MG CAPSULE PO SCH (09:46)
[2018-05-08] MEDS: INSULIN LISPRO 100 UNIT/ML SUBCUT SCH ×3 (09:48→17:52)
[2018-05-08] MEDS: FLUTICASONE/SALMETEROL 250-50 DISKUS 14 DOSE INH SCH (09:48)
[2018-05-08] MEDS: CLOTRIMAZOLE/BETAMETHASONE CREAM 15 GM TUBE TOP SCH (09:49)
[2018-05-08] MEDS: LEVOFLOXACIN INJ 500 MG in PREMIX 1 EACH IV SCH (10:21)
[2018-05-08 17:57] VITALS: BP 136/70
== END 2018-05-08 19:45 | disposition home or self-care (01) | DRG 194 ==
LOC: N.ED 21:19 → N.EDINP 22:59 → N.5E 05-05 00:15
PROVIDERS: ADMIT Family Medicine; ATTEND Family Medicine

== ENCOUNTER 2021-06-10 11:54 | Inpatient (IN) ==
[2021-06-10 18:43] LABS: Basophils # 0.1 10*3/uL (0.0-0.2); Basophils % 0.8 % (0.0-0.8); Eosinophils # 0.5 10*3/uL (0.0-0.87); Eosinophils % 5.3 % (0.00-10.9); Hematocrit 26.2 VOL% (35.7-47.0); Hemoglobin 6.6 GM/DL (12.0-16.0); Immature Granulocytes % 0.4 %; Immature Granulocytes Absolute 0.03 #; Lymphocytes # 1.1 10*3/uL (1.4-4.0); Lymphocytes % 12.3 % (21.3-54.2); Mean Corpuscular HGB Conc 25.2 GM/DL (32-36); Mean Platelet Volume 9.9 FL (9.6-12.0); Monocytes % 6.1 % (1.7-12.7); NRBC # 0.02 10*3/uL; Neutrophils % 75.1 % (38.7-73.9); Platelet Count 472 T/CUMM (130-400); Red Blood Count 3.69 MC/CUMM (3.8-5.5); Red Cell Distribution Width 18.6 % (9.3-17.3); White Blood Count 8.6 T/CUMM (4-12)
[2021-06-10 18:57] LABS: INR 0.9; PT Patient Result 10.4 SECS (10.5-12.0); Partial Thromboplastin Time 29.9 SECS (23.8-32.1)
[2021-06-10 19:05] LABS: Alanine Aminotransferase < 9 U/L (13-56); Albumin 2.5 G/DL (3.4-5.0); Alkaline Phosphatase 87 U/L (45-117); Aspartate Amino Transferase 8 U/L (0-37); Bilirubin,Total < 0.39 MG/DL (0.20-1.00); Blood Urea Nitrogen 9 MG/DL (7-18); Calcium 8.8 MG/DL (8.5-10.1); Carbon Dioxide 28 MMOL/L (21-32); Estimated Glom Filtration Rate 86 ML/MIN; Glucose 182 MG/DL (74-106); Osmolality,Calculated 280.5 MOS/KG (273-304); Potassium 4.3 MMOL/L (3.5-5.1); Sodium 139 MMOL/L (136-145); Total Protein 7.2 G/DL (6.4-8.2)
[2021-06-10] MEDS ORDERED: SODIUM CHLORIDE 0.9% 1,000 ML IV PRN (20:29)
[2021-06-10] MEDS ORDERED: ACETAMINOPHEN 325 MG TABLET PO PRN (20:29)
[2021-06-10] MEDS ORDERED: DEXTROSE 10% 250 ML BAG IV PRN (20:29)
[2021-06-10] MEDS ORDERED: GLUCAGON 1 MG VIAL IM PRN (20:29)
[2021-06-10] MEDS ORDERED: ONDANSETRON 4 MG/2 ML VIAL IV PRN (20:29)
[2021-06-10 20:55] LABS: Bilirubin,Urine Negative (Negative); Blood, Urine Negative (Negative); Glucose,Urine (UA) Negative (Negative); Ketones,Urine Negative (Negative); Mucus,Urine Occasional /LPF (Occasional); Nitrite,Urine Negative (Negative); Protein,Urine 30 MG/DL; RBC,Urine <1 /HPF (0-4); Squamous Epithelial Cell,Urine Occasional /HPF (0-10); Urine Appearance CLEAR (Clear); Urine Color Yellow (Yellow); Urine Specific Gravity 1.013 (1.001-1.035); Urine Urobilinogen < 2.0 EU/DL (<2.0)
[2021-06-10] MEDS ORDERED: cloNIDine 0.1 MG TABLET PO PRN (21:04)
[2021-06-10] MEDS ORDERED: FLUTICASONE/SALMETEROL 250-50 DISKUS 14 DOSE INH PRN (21:04)
[2021-06-10] MEDS ORDERED: HYDROCORTISONE 2.5% CREAM 30 GM TUBE TOP PRN (21:04)
[2021-06-10] MEDS ORDERED: POLYETHYLENE GLYCOL POWDER 17 GM PACK PO PRN (21:04)
[2021-06-10] MEDS ORDERED: PROMETHAZINE 25 MG TABLET PO PRN (21:04)
[2021-06-10] MEDS ORDERED: ALBUTEROL 2.5 MG/3 ML NEB RESP TX PRN (21:04)
[2021-06-10] MEDS ORDERED: DEXTROSE 50% 25 GM/50 ML VIAL IV PRN (21:08)
[2021-06-10] MEDS: INSULIN REGULAR 100 UNIT/ML SUBCUT SCH (22:55)
[2021-06-10] MEDS: DOCUSATE SODIUM 100 MG CAPSULE PO SCH (22:55)
[2021-06-10] MEDS: hydrOXYzine HCL 25 MG TABLET PO PRN (22:55)
[2021-06-11] MEDS: INSULIN REGULAR 100 UNIT/ML SUBCUT SCH ×4 (08:32→21:39)
[2021-06-11] MEDS ORDERED: PANTOPRAZOLE 40 MG TABLET PO SCH (09:00)
[2021-06-11 09:22] LABS: Alanine Aminotransferase < 6 U/L (13-56); Albumin 2.2 G/DL (3.4-5.0); Alkaline Phosphatase 83 U/L (45-117); Aspartate Amino Transferase 12 U/L (0-37); Bilirubin,Total < 0.39 MG/DL (0.20-1.00); Blood Urea Nitrogen 9 MG/DL (7-18); Calcium 8.4 MG/DL (8.5-10.1); Carbon Dioxide 29 MMOL/L (21-32); Estimated Glom Filtration Rate 91 ML/MIN; Glucose 192 MG/DL (74-106); Potassium 4.3 MMOL/L (3.5-5.1); Sodium 136 MMOL/L (136-145); Total Protein 6.6 G/DL (6.4-8.2)
[2021-06-11 09:24] LABS: % Iron Saturation 4.1 % (18-50); Ferritin 5.4 ng/mL (8-252)
[2021-06-11 09:31] LABS: Basophils # 0.1 10*3/uL (0.0-0.2); Basophils % 0.9 % (0.0-0.8); Eosinophils # 0.4 10*3/uL (0.0-0.87); Eosinophils % 5.9 % (0.00-10.9); Hematocrit 31.2 VOL% (35.7-47.0); Immature Granulocytes % 0.3 %; Immature Granulocytes Absolute 0.02 #; Lymphocytes # 1.2 10*3/uL (1.4-4.0); Lymphocytes % 16.3 % (21.3-54.2); Mean Corpuscular HGB Conc 27.6 GM/DL (32-36); Mean Corpuscular Volume 73.2 FL (87-102); Mean Platelet Volume 10.7 FL (9.6-12.0); Monocytes % 9.2 % (1.7-12.7); NRBC # 0.03 10*3/uL; Neutrophils % 67.4 % (38.7-73.9); Platelet Count 413 T/CUMM (130-400); Red Blood Count 4.26 MC/CUMM (3.8-5.5); White Blood Count 7.5 T/CUMM (4-12)
[2021-06-11 09:34] LABS: Hemoglobin 8.6 GM/DL (12.0-16.0)
[2021-06-11] MEDS: VENLAFAXINE XR 75 MG CAPSULE PO SCH (09:36)
[2021-06-11] MEDS: DOCUSATE SODIUM 100 MG CAPSULE PO SCH ×4 (09:37→21:39)
[2021-06-11] MEDS: PANTOPRAZOLE 40 MG TABLET PO SCH ×2 (09:37→21:39)
[2021-06-11] MEDS: diphenhydrAMINE 25 MG/10 ML UDCUP PO PRN ×2 (11:37→22:45)
[2021-06-11] MEDS: methylPREDNISolone SOD SUC 40 MG/1 ML VIAL IV SCH (11:37)
[2021-06-11] MEDS: POLYETHYLENE GLYCOL POWDER 17 GM PACK PO SCH (16:59)
[2021-06-11] MEDS: MAGNESIUM OXIDE 400 MG TABLET PO SCH (21:39)
[2021-06-11] MEDS: OLANZapine 2.5 MG TABLET PO SCH (21:39)
[2021-06-11] MEDS: MENTHOL/ZINC OXIDE OINT 71 GM JAR TOP SCH (21:41)
[2021-06-12] MEDS: hydrOXYzine HCL 25 MG TABLET PO PRN ×2 (01:08→22:23)
[2021-06-12 06:12] LABS: Alanine Aminotransferase 20 U/L (13-56); Albumin 2.2 G/DL (3.4-5.0); Alkaline Phosphatase 92 U/L (45-117); Aspartate Amino Transferase 25 U/L (0-37); Bilirubin,Total < 0.39 MG/DL (0.20-1.00); Blood Urea Nitrogen 8 MG/DL (7-18); Calcium 8.6 MG/DL (8.5-10.1); Carbon Dioxide 31 MMOL/L (21-32); Estimated Glom Filtration Rate 107 ML/MIN; Glucose 54 MG/DL (74-106); Osmolality,Calculated 278.1 MOS/KG (273-304); Potassium 3.8 MMOL/L (3.5-5.1); Sodium 142 MMOL/L (136-145); Total Protein 6.5 G/DL (6.4-8.2)
[2021-06-12 06:25] LABS: Basophils # 0.1 10*3/uL (0.0-0.2); Basophils % 0.6 % (0.0-0.8); Eosinophils # 0.2 10*3/uL (0.0-0.87); Hemoglobin 8.3 GM/DL (12.0-16.0); Immature Granulocytes % 0.5 %; Immature Granulocytes Absolute 0.04 #; Lymphocytes # 1.2 10*3/uL (1.4-4.0); Lymphocytes % 13.2 % (21.3-54.2); Mean Corpuscular HGB Conc 27.9 GM/DL (32-36); Mean Corpuscular Volume 72.5 FL (87-102); Mean Platelet Volume 10.6 FL (9.6-12.0); Monocytes % 11.3 % (1.7-12.7); NRBC # 0.03 10*3/uL; Neutrophils % 72.4 % (38.7-73.9); Platelet Count 369 T/CUMM (130-400); Red Blood Count 4.11 MC/CUMM (3.8-5.5); Red Cell Distribution Width 19.2 % (9.3-17.3); White Blood Count 8.9 T/CUMM (4-12)
[2021-06-12 06:31] LABS: Hematocrit 29.8 VOL% (35.7-47.0)
[2021-06-12 06:35] LABS: Platelet Estimate Normal; Target Cells Few
[2021-06-12 06:36] LABS: Acanthocytes Few; Anisocytosis 2+; Hypochromia Slight; Ovalocytes Few; Tear Drop Cells Few
[2021-06-12] MEDS: INSULIN REGULAR 100 UNIT/ML SUBCUT SCH ×4 (08:07→22:23)
[2021-06-12] MEDS: DOCUSATE SODIUM 100 MG CAPSULE PO SCH ×2 (09:30→22:26)
[2021-06-12] MEDS: methylPREDNISolone SOD SUC 40 MG/1 ML VIAL IV SCH (09:30)
[2021-06-12] MEDS: MENTHOL/ZINC OXIDE OINT 71 GM JAR TOP SCH ×2 (09:31→22:24)
[2021-06-12] MEDS: PANTOPRAZOLE 40 MG TABLET PO SCH ×2 (09:31→22:23)
[2021-06-12] MEDS: LACTATED RINGERS 1,000 ML IV SCH ×2 (09:33→14:06)
[2021-06-12] MEDS: POLYETHYLENE GLYCOL POWDER 17 GM PACK PO SCH (09:36)
[2021-06-12] MEDS: SODIUM CHLORIDE 0.9% 1,000 ML IV SCH (11:01)
[2021-06-12] MEDS ORDERED: BISACODYL 10 MG SUPP RECTAL PRN (11:08)
[2021-06-12] MEDS ORDERED: propofoL 200 MG/20 ML VIAL IV ONE (13:26)
[2021-06-12] MEDS ORDERED: LIDOCAINE 2% 5 ML VIAL ONE (13:26)
[2021-06-12] MEDS ORDERED: ESMOLOL 100 MG/10 ML VIAL IV ONE (13:30)
[2021-06-12] MEDS: VENLAFAXINE XR 75 MG CAPSULE PO SCH (16:53)
[2021-06-12] MEDS: MAGNESIUM OXIDE 400 MG TABLET PO SCH (22:23)
[2021-06-12] MEDS: OLANZapine 2.5 MG TABLET PO SCH (22:23)
[2021-06-13] MEDS: SODIUM CHLORIDE 0.9% 1,000 ML IV SCH (06:24)
[2021-06-13 09:11] LABS: Calcium 8.4 MG/DL (8.5-10.1); Osmolality,Calculated 285.3 MOS/KG (273-304)
[2021-06-13 09:19] LABS: Basophils # 0.1 10*3/uL (0.0-0.2); Basophils % 0.8 % (0.0-0.8); Eosinophils # 0.6 10*3/uL (0.0-0.87); Eosinophils % 6.4 % (0.00-10.9); Hematocrit 36.4 VOL% (35.7-47.0); Immature Granulocytes % 0.2 %; Immature Granulocytes Absolute 0.02 #; Lymphocytes # 1.1 10*3/uL (1.4-4.0); Lymphocytes % 12.7 % (21.3-54.2); Mean Corpuscular HGB Conc 27.5 GM/DL (32-36); Mean Corpuscular Volume 72.8 FL (87-102); Monocytes % 8.5 % (1.7-12.7); NRBC # 0.02 10*3/uL; Neutrophils % 71.4 % (38.7-73.9); Platelet Count 442 T/CUMM (130-400); Red Cell Distribution Width 20.2 % (9.3-17.3); White Blood Count 8.7 T/CUMM (4-12)
[2021-06-13] MEDS: DOCUSATE SODIUM 100 MG CAPSULE PO SCH (10:33)
[2021-06-13] MEDS: INSULIN REGULAR 100 UNIT/ML SUBCUT SCH ×2 (10:33→12:10)
[2021-06-13] MEDS: VENLAFAXINE XR 75 MG CAPSULE PO SCH (10:33)
[2021-06-13] MEDS: PANTOPRAZOLE 40 MG TABLET PO SCH (10:34)
[2021-06-13] MEDS: MENTHOL/ZINC OXIDE OINT 71 GM JAR TOP SCH (10:34)
[2021-06-13] MEDS: methylPREDNISolone SOD SUC 40 MG/1 ML VIAL IV SCH (10:34)
[2021-06-13] MEDS: POLYETHYLENE GLYCOL POWDER 17 GM PACK PO SCH (10:46)
[2021-06-13 13:24] VITALS: BP 178/61
== END 2021-06-13 13:57 | disposition home health service (06) | DRG 378 ==
LOC: N.ED 11:54 → N.5E 19:25
PROVIDERS: ADMIT Family Medicine; ATTEND Family Medicine

== ENCOUNTER 2022-06-09 06:00 | Inpatient (IN) ==
[2022-06-09] MEDS ORDERED: ASPIRIN 325 MG TABLET PO STA (06:28)
[2022-06-09] MEDS ORDERED: ALBUTEROL 2.5 MG/3 ML NEB RESP TX STA (06:30)
[2022-06-09] MEDS ORDERED: PANTOPRAZOLE 40 MG VIAL IV STA (06:36)
[2022-06-09 07:00] LABS: Basophils % 0.1 % (0.0-0.8); Eosinophils # 0.1 10*3/uL (0.0-0.87); Eosinophils % 0.4 % (0.00-10.9); Immature Granulocytes % 0.6 %; Immature Granulocytes Absolute 0.08 #; Lymphocytes # 0.8 10*3/uL (1.4-4.0); Lymphocytes % 5.8 % (21.3-54.2); Mean Corpuscular HGB Conc 24.6 GM/DL (32-36); Mean Corpuscular Volume 64.5 FL (87-102); Mean Platelet Volume 10.6 FL (9.6-12.0); Monocytes # 0.8 10*3/uL (0.11-0.8); Monocytes % 5.5 % (1.7-12.7); NRBC # 0.07 10*3/uL; Neutrophils % 87.6 % (38.7-73.9); Platelet Count 352 T/CUMM (130-400); Red Blood Count 2.14 MC/CUMM (3.8-5.5); Red Cell Distribution Width 22.5 % (9.3-17.3); White Blood Count 13.9 T/CUMM (4-12)
[2022-06-09 07:05] LABS: Hemoglobin 3.4 GM/DL (12.0-16.0)
[2022-06-09 07:08] LABS: Hematocrit 13.8 VOL% (35.7-47.0)
[2022-06-09 07:09] LABS: INR 1.1; PT Patient Result 11.9 SECS (10.1-12.1); Partial Thromboplastin Time 26.2 SECS (23.7-32.9)
[2022-06-09] MEDS ORDERED: CEFEPIME 2,000 MG in SODIUM CHLORIDE 0.9% 100 ML IV STA (07:11)
[2022-06-09] MEDS ORDERED: VANCOMYCIN INJ 1,500 MG in SODIUM CHLORIDE 0.9% 500 ML IV STA (07:11)
[2022-06-09 07:26] LABS: Alanine Aminotransferase 15 U/L (13-56); Albumin 2.8 G/DL (3.4-5.0); Alkaline Phosphatase 84 U/L (45-117); Aspartate Amino Transferase 21 U/L (0-37); Bilirubin,Total < 0.39 MG/DL (0.20-1.00); Blood Urea Nitrogen 16 MG/DL (7-18); Calcium 7.8 MG/DL (8.5-10.1); Carbon Dioxide 27 MMOL/L (21-32); Chloride 105 MMOL/L (98-107); Glucose 372 MG/DL (74-106); Osmolality,Calculated 292.5 MOS/KG (273-304); Potassium 4.4 MMOL/L (3.5-5.1); Sodium 139 MMOL/L (136-145); Total Protein 6.3 G/DL (6.4-8.2)
[2022-06-09 09:42] LABS: % Iron Saturation 2.8 % (18-50); Ferritin 3.7 ng/mL (8-252)
[2022-06-09 10:02] LABS: Folate 22.09 NG/ML (5.38-24.0)
[2022-06-09] MEDS ORDERED: amLODIPine 10 MG TABLET PO SCH (11:00)
[2022-06-09] MEDS ORDERED: ALBUTEROL 2.5 MG/3 ML NEB RESP TX PRN (12:30)
[2022-06-09] MEDS ORDERED: ALUMINUM/MAGNES/SIMETH MAX STR 30 ML UDCUP PO PRN (12:30)
[2022-06-09] MEDS ORDERED: ONDANSETRON 4 MG/2 ML VIAL IV PRN (12:30)
[2022-06-09] MEDS ORDERED: SODIUM CHLORIDE 0.9% 1,000 ML IV PRN ×2 (13:01→23:05)
[2022-06-09] MEDS: glipiZIDE 10 MG TABLET PO SCH ×2 (13:08→20:55)
[2022-06-09] MEDS: ENALAPRIL 20 MG TABLET PO SCH (13:08)
[2022-06-09] MEDS ORDERED: hydrALAZINE 20 MG/1 ML VIAL IV PRN (20:00)
[2022-06-09] MEDS: AMITRIPTYLINE 25 MG TABLET PO SCH (20:55)
[2022-06-09] MEDS: FERROUS SULFATE 325 MG TABLET PO SCH (20:55)
[2022-06-09] MEDS: OLANZapine 2.5 MG TABLET PO SCH (20:56)
[2022-06-09] MEDS: ENOXAPARIN 30 MG/0.3 ML SYRINGE SUBCUT SCH (20:56)
[2022-06-09 22:44] LABS: Hematocrit 20.4 VOL% (35.7-47.0)
[2022-06-09 22:54] LABS: Hemoglobin 5.8 GM/DL (12.0-16.0)
[2022-06-09 23:07] LABS: Calcium 7.6 MG/DL (8.5-10.1); Osmolality,Calculated 286.8 MOS/KG (273-304); Potassium 4.3 MMOL/L (3.5-5.1)
[2022-06-09] MEDS: INSULIN LISPRO 100 UNIT/ML SUBCUT SCH (23:38)
[2022-06-10] MEDS ORDERED: SODIUM CHLORIDE 0.9% 500 ML IV ONE ×2 (00:30→03:45)
[2022-06-10] MEDS: SODIUM CHLORIDE 0.9% 1,000 ML IV SCH ×2 (04:22→15:14)
[2022-06-10] MEDS: INSULIN LISPRO 100 UNIT/ML SUBCUT SCH ×3 (06:08→17:38)
[2022-06-10 06:27] LABS: Basophils # 0.1 10*3/uL (0.0-0.2); Basophils % 0.5 % (0.0-0.8); Eosinophils # 0.2 10*3/uL (0.0-0.87); Eosinophils % 1.5 % (0.00-10.9); Hematocrit 26.3 VOL% (35.7-47.0); Immature Granulocytes % 1.1 %; Immature Granulocytes Absolute 0.12 #; Lymphocytes % 8.8 % (21.3-54.2); Mean Corpuscular HGB Conc 29.3 GM/DL (32-36); Mean Corpuscular Volume 74.9 FL (87-102); Mean Platelet Volume 10.4 FL (9.6-12.0); Monocytes % 8.7 % (1.7-12.7); NRBC # 0.09 10*3/uL; Neutrophils % 79.4 % (38.7-73.9); Red Cell Distribution Width 25.2 % (9.3-17.3); White Blood Count 11.1 T/CUMM (4-12)
[2022-06-10 06:28] LABS: Red Blood Count 3.51 MC/CUMM (3.8-5.5)
[2022-06-10 06:29] LABS: Hemoglobin 7.7 GM/DL (12.0-16.0); Platelet Count 235 T/CUMM (130-400)
[2022-06-10 06:48] LABS: Alanine Aminotransferase 18 U/L (13-56); Albumin 2.6 G/DL (3.4-5.0); Alkaline Phosphatase 103 U/L (45-117); Aspartate Amino Transferase 23 U/L (0-37); Bilirubin,Total < 0.39 MG/DL (0.20-1.00); Blood Urea Nitrogen 11 MG/DL (7-18); Calcium 7.9 MG/DL (8.5-10.1); Carbon Dioxide 25 MMOL/L (21-32); Chloride 107 MMOL/L (98-107); Glucose 183 MG/DL (74-106); Osmolality,Calculated 280.5 MOS/KG (273-304); Potassium 3.8 MMOL/L (3.5-5.1); Sodium 139 MMOL/L (136-145); Total Protein 6.8 G/DL (6.4-8.2)
[2022-06-10 06:51] LABS: Anisocytosis 1+; Hypochromia 1+; Microcytosis 1+
[2022-06-10 06:52] LABS: Ovalocytes Slight; Platelet Estimate Normal; Polychromasia Slight; Tear Drop Cells Slight
[2022-06-10 07:29] LABS: Total Protein (Chem) 6.6 G/DL (6.4-8.3)
[2022-06-10] MEDS ORDERED: SODIUM CHLORIDE 0.9% 1,000 ML IV PRN (07:32)
[2022-06-10] MEDS ORDERED: FUROSEMIDE 40 MG/4 ML VIAL IV ONE (07:35)
[2022-06-10 08:52] LABS: Albumin (SPE) 3.7 G/DL (3.2-5.3); Albumin (SPE) Rel % 56.1 %; Alpha 1 (SPE) 0.3 G/DL (0.1-0.4); Alpha 1 (SPE) Rel % 3.8 %; Alpha 2 (SPE) 0.8 G/DL (0.4-1.0); Alpha 2 (SPE) Rel % 11.4 %; Beta (SPE) Rel % 14.5 %; Gamma (SPE) 0.9 G/DL (0.7-1.7); Gamma (SPE) Rel % 14.2 %
[2022-06-10] MEDS: FERROUS SULFATE 325 MG TABLET PO SCH ×2 (09:27→20:29)
[2022-06-10] MEDS: glipiZIDE 10 MG TABLET PO SCH ×2 (09:27→20:29)
[2022-06-10] MEDS: FERRIC GLUCONATE COMPLEX 125 MG in SODIUM CHLORIDE 0.9% 100 ML IV SCH (09:27)
[2022-06-10] MEDS: PANTOPRAZOLE 40 MG TABLET PO SCH (09:28)
[2022-06-10] MEDS: amLODIPine 10 MG TABLET PO SCH (09:28)
[2022-06-10] MEDS: ENALAPRIL 20 MG TABLET PO SCH (09:29)
[2022-06-10] MEDS ORDERED: METOPROLOL TARTRATE 5 MG/5 ML VIAL IV PRN (15:45)
[2022-06-10 17:12] LABS: Hematocrit 33.9 VOL% (35.7-47.0); Hemoglobin 10.1 GM/DL (12.0-16.0)
[2022-06-10] MEDS: OLANZapine 2.5 MG TABLET PO SCH (20:29)
[2022-06-10] MEDS: ENOXAPARIN 30 MG/0.3 ML SYRINGE SUBCUT SCH (20:29)
[2022-06-10] MEDS: AMITRIPTYLINE 25 MG TABLET PO SCH (20:29)
[2022-06-10] MEDS ORDERED: ZALEPLON 5 MG CAPSULE PO ONE (21:15)
[2022-06-11] MEDS: INSULIN LISPRO 100 UNIT/ML SUBCUT SCH ×5 (00:35→20:18)
[2022-06-11 08:30] LABS: Albumin 2.4 G/DL (3.4-5.0); Bilirubin,Total 0.4 MG/DL (0.20-1.00); Calcium 8.2 MG/DL (8.5-10.1); Osmolality,Calculated 283.1 MOS/KG (273-304); Potassium 3.2 MMOL/L (3.5-5.1); Total Protein 6.7 G/DL (6.4-8.2)
[2022-06-11 08:31] LABS: Basophils # 0.1 10*3/uL (0.0-0.2); Basophils % 0.7 % (0.0-0.8); Eosinophils # 0.4 10*3/uL (0.0-0.87); Eosinophils % 4.5 % (0.00-10.9); Hematocrit 34.8 VOL% (35.7-47.0); Hemoglobin 10.2 GM/DL (12.0-16.0); Immature Granulocytes % 0.9 %; Immature Granulocytes Absolute 0.09 #; Lymphocytes # 0.9 10*3/uL (1.4-4.0); Lymphocytes % 9.6 % (21.3-54.2); Mean Corpuscular HGB Conc 29.3 GM/DL (32-36); Mean Corpuscular Volume 75.8 FL (87-102); Monocytes # 0.6 10*3/uL (0.11-0.8); Monocytes % 6.3 % (1.7-12.7); NRBC # 0.11 10*3/uL; Platelet Count 246 T/CUMM (130-400); Red Blood Count 4.59 MC/CUMM (3.8-5.5); Red Cell Distribution Width 24.1 % (9.3-17.3); White Blood Count 9.7 T/CUMM (4-12)
[2022-06-11 08:38] LABS: Anisocytosis 1+; Hypochromia 1+; Microcytosis 1+; Ovalocytes Slight; Polychromasia Slight
[2022-06-11 08:39] LABS: Platelet Estimate Normal
[2022-06-11] MEDS: VENLAFAXINE XR 75 MG CAPSULE PO SCH (08:52)
[2022-06-11] MEDS: PANTOPRAZOLE 40 MG TABLET PO SCH (08:52)
[2022-06-11] MEDS: FERRIC GLUCONATE COMPLEX 125 MG in SODIUM CHLORIDE 0.9% 100 ML IV SCH (08:53)
[2022-06-11] MEDS: FERROUS SULFATE 325 MG TABLET PO SCH ×2 (08:53→20:18)
[2022-06-11] MEDS: POTASSIUM CHLORIDE 20 MEQ TABLET PO PRN ×4 (08:53→16:27)
[2022-06-11] MEDS: ENALAPRIL 20 MG TABLET PO SCH (08:53)
[2022-06-11] MEDS: amLODIPine 10 MG TABLET PO SCH (08:53)
[2022-06-11] MEDS: glipiZIDE 10 MG TABLET PO SCH ×2 (08:53→20:18)
[2022-06-11] MEDS ORDERED: ZINC OXIDE PASTE 113 GM TUBE TOP PRN (15:42)
[2022-06-11] MEDS: BUTALBITAL/ACETAMIN/CAFFEINE 50-325-40 MG TABLET PO PRN (18:22)
[2022-06-11] MEDS: AMITRIPTYLINE 25 MG TABLET PO SCH (20:17)
[2022-06-11] MEDS: OLANZapine 2.5 MG TABLET PO SCH (20:18)
[2022-06-11] MEDS: POLYVINYL 0.5%/POVIDONE 0.6% OPH SOLN 15 ML BOTTLE BOTH EYES PRN (20:18)
[2022-06-11] MEDS: ENOXAPARIN 30 MG/0.3 ML SYRINGE SUBCUT SCH (20:18)
[2022-06-12 05:25] LABS: Alanine Aminotransferase 23 U/L (13-56); Albumin 2.1 G/DL (3.4-5.0); Alkaline Phosphatase 120 U/L (45-117); Aspartate Amino Transferase 32 U/L (0-37); Bilirubin,Total < 0.39 MG/DL (0.20-1.00); Blood Urea Nitrogen 6 MG/DL (7-18); Calcium 8.2 MG/DL (8.5-10.1); Carbon Dioxide 28 MMOL/L (21-32); Chloride 111 MMOL/L (98-107); Glucose 102 MG/DL (74-106); Osmolality,Calculated 285.7 MOS/KG (273-304); Potassium 4.2 MMOL/L (3.5-5.1); Sodium 145 MMOL/L (136-145); Total Protein 6.2 G/DL (6.4-8.2)
[2022-06-12 05:38] LABS: Basophils # 0.1 10*3/uL (0.0-0.2); Basophils % 0.8 % (0.0-0.8); Eosinophils # 0.4 10*3/uL (0.0-0.87); Eosinophils % 4.3 % (0.00-10.9); Hemoglobin 9.7 GM/DL (12.0-16.0); Immature Granulocytes % 0.9 %; Immature Granulocytes Absolute 0.08 #; Lymphocytes # 1.1 10*3/uL (1.4-4.0); Lymphocytes % 12.1 % (21.3-54.2); Mean Corpuscular HGB Conc 28.4 GM/DL (32-36); Mean Corpuscular Volume 78.4 FL (87-102); Monocytes # 0.8 10*3/uL (0.11-0.8); Monocytes % 8.9 % (1.7-12.7); NRBC # 0.15 10*3/uL; Platelet Count 229 T/CUMM (130-400); Red Blood Count 4.36 MC/CUMM (3.8-5.5); Red Cell Distribution Width 24.5 % (9.3-17.3); White Blood Count 9.1 T/CUMM (4-12)
[2022-06-12 05:40] LABS: Hematocrit 34.2 VOL% (35.7-47.0)
[2022-06-12 05:56] LABS: Poikilocytosis Few
[2022-06-12 05:57] LABS: Tear Drop Cells Slight
[2022-06-12 05:58] LABS: Anisocytosis Slight; Polychromasia Slight
[2022-06-12 05:59] LABS: Hypochromia Slight; Microcytosis Slight; Platelet Estimate Normal
[2022-06-12] MEDS: INSULIN LISPRO 100 UNIT/ML SUBCUT SCH ×4 (07:42→20:49)
[2022-06-12] MEDS ORDERED: LACTATED RINGERS 1,000 ML IV SCH (08:00)
[2022-06-12] MEDS ORDERED: propofoL 200 MG/20 ML VIAL IV ONE (10:35)
[2022-06-12] MEDS ORDERED: LIDOCAINE 2% 5 ML VIAL ONE (10:35)
[2022-06-12] MEDS: FERROUS SULFATE 325 MG TABLET PO SCH ×2 (11:37→20:48)
[2022-06-12] MEDS: ENALAPRIL 20 MG TABLET PO SCH (11:37)
[2022-06-12] MEDS: amLODIPine 10 MG TABLET PO SCH (11:37)
[2022-06-12] MEDS: glipiZIDE 10 MG TABLET PO SCH ×2 (11:38→20:49)
[2022-06-12] MEDS: PANTOPRAZOLE 40 MG TABLET PO SCH (11:38)
[2022-06-12] MEDS: FERRIC GLUCONATE COMPLEX 125 MG in SODIUM CHLORIDE 0.9% 100 ML IV SCH (11:38)
[2022-06-12] MEDS ORDERED: DEXTROSE 10% 250 ML BAG IV PRN (11:54)
[2022-06-12] MEDS ORDERED: GLUCAGON 1 MG VIAL IM PRN (11:54)
[2022-06-12] MEDS: hydrOXYzine HCL 25 MG TABLET PO PRN (14:30)
[2022-06-12] MEDS: AMITRIPTYLINE 25 MG TABLET PO SCH (20:48)
[2022-06-12] MEDS: OLANZapine 2.5 MG TABLET PO SCH (20:48)
[2022-06-12] MEDS: ENOXAPARIN 30 MG/0.3 ML SYRINGE SUBCUT SCH (20:49)
[2022-06-13] MEDS: INSULIN LISPRO 100 UNIT/ML SUBCUT SCH ×4 (07:41→20:13)
[2022-06-13] MEDS: BUTALBITAL/ACETAMIN/CAFFEINE 50-325-40 MG TABLET PO PRN ×2 (07:51→20:13)
[2022-06-13] MEDS: glipiZIDE 10 MG TABLET PO SCH ×2 (09:06→20:13)
[2022-06-13] MEDS: FERRIC GLUCONATE COMPLEX 125 MG in SODIUM CHLORIDE 0.9% 100 ML IV SCH (09:07)
[2022-06-13] MEDS: amLODIPine 10 MG TABLET PO SCH (09:07)
[2022-06-13] MEDS: VENLAFAXINE XR 75 MG CAPSULE PO SCH (09:07)
[2022-06-13] MEDS: ENALAPRIL 20 MG TABLET PO SCH (09:07)
[2022-06-13] MEDS: PANTOPRAZOLE 40 MG TABLET PO SCH (09:07)
[2022-06-13] MEDS: FERROUS SULFATE 325 MG TABLET PO SCH ×2 (09:07→20:13)
[2022-06-13 11:43] LABS: Basophils # 0.1 10*3/uL (0.0-0.2); Basophils % 0.9 % (0.0-0.8); Eosinophils # 0.4 10*3/uL (0.0-0.87); Eosinophils % 4.5 % (0.00-10.9); Hematocrit 36.4 VOL% (35.7-47.0); Hemoglobin 10.1 GM/DL (12.0-16.0); Immature Granulocytes % 0.8 %; Immature Granulocytes Absolute 0.07 #; Lymphocytes # 0.9 10*3/uL (1.4-4.0); Lymphocytes % 10.3 % (21.3-54.2); Mean Corpuscular HGB Conc 27.7 GM/DL (32-36); Mean Corpuscular Volume 80.5 FL (87-102); Monocytes # 0.7 10*3/uL (0.11-0.8); Monocytes % 8.6 % (1.7-12.7); NRBC # 0.13 10*3/uL; Neutrophils % 74.9 % (38.7-73.9); Platelet Count 233 T/CUMM (130-400); Red Blood Count 4.52 MC/CUMM (3.8-5.5); Red Cell Distribution Width 26.9 % (9.3-17.3); White Blood Count 8.4 T/CUMM (4-12)
[2022-06-13] MEDS: OLANZapine 2.5 MG TABLET PO SCH (20:13)
[2022-06-13] MEDS: AMITRIPTYLINE 25 MG TABLET PO SCH (20:13)
[2022-06-13] MEDS: ENOXAPARIN 30 MG/0.3 ML SYRINGE SUBCUT SCH (20:14)
[2022-06-14] MEDS: POLYVINYL 0.5%/POVIDONE 0.6% OPH SOLN 15 ML BOTTLE BOTH EYES PRN ×2 (01:08→20:14)
[2022-06-14 05:14] LABS: Basophils # 0.1 10*3/uL (0.0-0.2); Eosinophils # 0.4 10*3/uL (0.0-0.87); Eosinophils % 4.1 % (0.00-10.9); Hematocrit 34.6 VOL% (35.7-47.0); Hemoglobin 9.8 GM/DL (12.0-16.0); Immature Granulocytes % 0.8 %; Immature Granulocytes Absolute 0.07 #; Lymphocytes # 0.8 10*3/uL (1.4-4.0); Lymphocytes % 9.2 % (21.3-54.2); Mean Corpuscular HGB Conc 28.3 GM/DL (32-36); Mean Corpuscular Volume 80.5 FL (87-102); Mean Platelet Volume 10.3 FL (9.6-12.0); Monocytes # 0.8 10*3/uL (0.11-0.8); Monocytes % 9.2 % (1.7-12.7); NRBC # 0.11 10*3/uL; Neutrophils % 75.7 % (38.7-73.9); Platelet Count 245 T/CUMM (130-400); Red Cell Distribution Width 27.5 % (9.3-17.3); White Blood Count 8.79 T/CUMM (4-12)
[2022-06-14 05:31] LABS: Hypochromia Slight; Microcytosis Slight; Platelet Estimate Normal
[2022-06-14] MEDS: INSULIN LISPRO 100 UNIT/ML SUBCUT SCH ×4 (07:59→20:08)
[2022-06-14] MEDS: FERRIC GLUCONATE COMPLEX 125 MG in SODIUM CHLORIDE 0.9% 100 ML IV SCH (08:06)
[2022-06-14] MEDS: FERROUS SULFATE 325 MG TABLET PO SCH ×2 (08:07→20:08)
[2022-06-14] MEDS: glipiZIDE 10 MG TABLET PO SCH ×2 (08:07→20:07)
[2022-06-14] MEDS: PANTOPRAZOLE 40 MG TABLET PO SCH (08:09)
[2022-06-14] MEDS: ENALAPRIL 20 MG TABLET PO SCH (08:09)
[2022-06-14] MEDS: amLODIPine 10 MG TABLET PO SCH (08:09)
[2022-06-14] MEDS: BUTALBITAL/ACETAMIN/CAFFEINE 50-325-40 MG TABLET PO PRN (09:46)
[2022-06-14] MEDS: AMITRIPTYLINE 25 MG TABLET PO SCH (20:07)
[2022-06-14] MEDS: NYSTATIN/TRIAMCINOLONE CREAM 15 GM TUBE TOP SCH (20:08)
[2022-06-14] MEDS: ENOXAPARIN 30 MG/0.3 ML SYRINGE SUBCUT SCH (20:08)
[2022-06-14] MEDS: OLANZapine 2.5 MG TABLET PO SCH (20:08)
[2022-06-14] MEDS: hydrOXYzine HCL 25 MG TABLET PO PRN (20:38)
[2022-06-15 05:30] LABS: Basophils # 0.1 10*3/uL (0.0-0.2); Eosinophils # 0.4 10*3/uL (0.0-0.87); Eosinophils % 4.6 % (0.00-10.9); Hematocrit 33.3 VOL% (35.7-47.0); Hemoglobin 9.3 GM/DL (12.0-16.0); Immature Granulocytes % 0.6 %; Immature Granulocytes Absolute 0.06 #; Lymphocytes % 10.3 % (21.3-54.2); Mean Corpuscular HGB Conc 27.9 GM/DL (32-36); Mean Corpuscular Volume 82.8 FL (87-102); Mean Platelet Volume 10.4 FL (9.6-12.0); Monocytes # 0.8 10*3/uL (0.11-0.8); Monocytes % 8.6 % (1.7-12.7); NRBC # 0.07 10*3/uL; Neutrophils % 74.9 % (38.7-73.9); Platelet Count 241 T/CUMM (130-400); Red Blood Count 4.02 MC/CUMM (3.8-5.5); Red Cell Distribution Width 28.3 % (9.3-17.3); White Blood Count 9.29 T/CUMM (4-12)
[2022-06-15 05:49] LABS: Hypochromia 1+; Polychromasia Slight
[2022-06-15 05:50] LABS: Microcytosis 1+; Ovalocytes Slight; Platelet Estimate Normal; Tear Drop Cells Slight
[2022-06-15] MEDS: INSULIN LISPRO 100 UNIT/ML SUBCUT SCH ×4 (08:33→21:57)
[2022-06-15] MEDS: FERRIC GLUCONATE COMPLEX 125 MG in SODIUM CHLORIDE 0.9% 100 ML IV SCH (08:54)
[2022-06-15] MEDS: amLODIPine 10 MG TABLET PO SCH (08:57)
[2022-06-15] MEDS: ENALAPRIL 20 MG TABLET PO SCH (08:57)
[2022-06-15] MEDS: VENLAFAXINE XR 75 MG CAPSULE PO SCH (08:57)
[2022-06-15] MEDS: FERROUS SULFATE 325 MG TABLET PO SCH ×2 (08:58→21:57)
[2022-06-15] MEDS: PANTOPRAZOLE 40 MG TABLET PO SCH (08:58)
[2022-06-15] MEDS: glipiZIDE 10 MG TABLET PO SCH ×2 (08:58→21:58)
[2022-06-15] MEDS: NYSTATIN/TRIAMCINOLONE CREAM 15 GM TUBE TOP SCH ×2 (08:59→21:59)
[2022-06-15] MEDS: AMITRIPTYLINE 25 MG TABLET PO SCH (21:58)
[2022-06-15] MEDS: OLANZapine 2.5 MG TABLET PO SCH (21:58)
[2022-06-15] MEDS: ENOXAPARIN 30 MG/0.3 ML SYRINGE SUBCUT SCH (21:58)
[2022-06-16 05:17] LABS: Alanine Aminotransferase 12 U/L (13-56); Albumin 2.2 G/DL (3.4-5.0); Alkaline Phosphatase 105 U/L (45-117); Aspartate Amino Transferase 12 U/L (0-37); Bilirubin,Total < 0.39 MG/DL (0.20-1.00); Blood Urea Nitrogen 9 MG/DL (7-18); Carbon Dioxide 31 MMOL/L (21-32); Chloride 107 MMOL/L (98-107); Glucose 152 MG/DL (74-106); Osmolality,Calculated 287.8 MOS/KG (273-304); Potassium 4.1 MMOL/L (3.5-5.1); Sodium 144 MMOL/L (136-145); Total Protein 6.3 G/DL (6.4-8.2)
[2022-06-16 05:36] LABS: Basophils # 0.1 10*3/uL (0.0-0.2); Basophils % 0.7 % (0.0-0.8); Eosinophils # 0.5 10*3/uL (0.0-0.87); Eosinophils % 5.5 % (0.00-10.9); Hemoglobin 9.9 GM/DL (12.0-16.0); Immature Granulocytes % 0.8 %; Immature Granulocytes Absolute 0.08 #; Lymphocytes # 1.1 10*3/uL (1.4-4.0); Lymphocytes % 11.4 % (21.3-54.2); Mean Corpuscular Volume 82.1 FL (87-102); Monocytes # 0.8 10*3/uL (0.11-0.8); Monocytes % 7.9 % (1.7-12.7); NRBC # 0.09 10*3/uL; Neutrophils % 73.7 % (38.7-73.9); Platelet Count 269 T/CUMM (130-400); Red Blood Count 4.31 MC/CUMM (3.8-5.5); Red Cell Distribution Width 28.6 % (9.3-17.3); White Blood Count 9.56 T/CUMM (4-12)
[2022-06-16 05:37] LABS: Hematocrit 35.4 VOL% (35.7-47.0)
[2022-06-16] MEDS: FERROUS SULFATE 325 MG TABLET PO SCH ×2 (08:49→21:10)
[2022-06-16] MEDS: amLODIPine 10 MG TABLET PO SCH (08:49)
[2022-06-16] MEDS: INSULIN LISPRO 100 UNIT/ML SUBCUT SCH ×4 (08:49→21:09)
[2022-06-16] MEDS: PANTOPRAZOLE 40 MG TABLET PO SCH (08:49)
[2022-06-16] MEDS: ENALAPRIL 20 MG TABLET PO SCH (08:49)
[2022-06-16] MEDS: glipiZIDE 10 MG TABLET PO SCH ×2 (08:49→21:10)
[2022-06-16] MEDS: NYSTATIN/TRIAMCINOLONE CREAM 15 GM TUBE TOP SCH ×2 (08:50→21:10)
[2022-06-16] MEDS ORDERED: ERGOCALCIFEROL 50,000 UNIT CAPSULE PO SCH (09:00)
[2022-06-16] MEDS: hydrOXYzine HCL 25 MG TABLET PO PRN ×2 (14:32→21:10)
[2022-06-16] MEDS: ENOXAPARIN 30 MG/0.3 ML SYRINGE SUBCUT SCH (21:09)
[2022-06-16] MEDS: OLANZapine 2.5 MG TABLET PO SCH (21:10)
[2022-06-16] MEDS: AMITRIPTYLINE 25 MG TABLET PO SCH (21:10)
[2022-06-16] MEDS: BUTALBITAL/ACETAMIN/CAFFEINE 50-325-40 MG TABLET PO PRN (23:06)
[2022-06-17 03:46] LABS: Alanine Aminotransferase 13 U/L (13-56); Alkaline Phosphatase 95 U/L (45-117); Aspartate Amino Transferase 15 U/L (0-37); Bilirubin,Total < 0.39 MG/DL (0.20-1.00); Blood Urea Nitrogen 10 MG/DL (7-18); Calcium 8.1 MG/DL (8.5-10.1); Carbon Dioxide 33 MMOL/L (21-32); Chloride 106 MMOL/L (98-107); Glucose 170 MG/DL (74-106); Osmolality,Calculated 288.8 MOS/KG (273-304); Sodium 144 MMOL/L (136-145); Total Protein 5.9 G/DL (6.4-8.2)
[2022-06-17 03:47] LABS: Basophils # 0.1 10*3/uL (0.0-0.2); Basophils % 0.8 % (0.0-0.8); Eosinophils # 0.6 10*3/uL (0.0-0.87); Eosinophils % 5.5 % (0.00-10.9); Hematocrit 33.5 VOL% (35.7-47.0); Hemoglobin 9.1 GM/DL (12.0-16.0); Immature Granulocytes % 0.8 %; Immature Granulocytes Absolute 0.08 #; Lymphocytes # 1.5 10*3/uL (1.4-4.0); Lymphocytes % 14.7 % (21.3-54.2); Mean Corpuscular HGB Conc 27.2 GM/DL (32-36); Mean Platelet Volume 10.4 FL (9.6-12.0); Monocytes # 0.8 10*3/uL (0.11-0.8); Monocytes % 7.8 % (1.7-12.7); NRBC # 0.07 10*3/uL; Neutrophils % 70.4 % (38.7-73.9); Platelet Count 288 T/CUMM (130-400); Red Blood Count 3.99 MC/CUMM (3.8-5.5); Red Cell Distribution Width 28.9 % (9.3-17.3)
[2022-06-17 03:48] LABS: Hypochromia 1+
[2022-06-17 03:49] LABS: Microcytosis 1+; Polychromasia Few
[2022-06-17 03:50] LABS: Platelet Estimate Normal
[2022-06-17 08:15] VITALS: BP 174/74
[2022-06-17] MEDS: amLODIPine 10 MG TABLET PO SCH (08:15)
[2022-06-17] MEDS: VENLAFAXINE XR 75 MG CAPSULE PO SCH (08:15)
[2022-06-17] MEDS: PANTOPRAZOLE 40 MG TABLET PO SCH (08:15)
[2022-06-17] MEDS: INSULIN LISPRO 100 UNIT/ML SUBCUT SCH ×2 (08:15→11:29)
[2022-06-17] MEDS: ENALAPRIL 20 MG TABLET PO SCH (08:15)
[2022-06-17] MEDS: FERROUS SULFATE 325 MG TABLET PO SCH (08:15)
[2022-06-17] MEDS: glipiZIDE 10 MG TABLET PO SCH (08:17)
[2022-06-17] MEDS: NYSTATIN/TRIAMCINOLONE CREAM 15 GM TUBE TOP SCH (08:18)
== END 2022-06-17 14:16 | disposition swing bed (61) | DRG 378 ==
LOC: N.ED 06:00 → SUATTDRO 10:23 → N.CC 10:23 → N.3E 06-17 11:55
PROVIDERS: ADMIT Internal Medicine; ATTEND Family Medicine